=== PATIENT | female | born 1975 | race Two or more races ===

== ENCOUNTER 2018-03-28 10:18 | Inpatient (IN) | payer MEDICARE, OTHER ==
[~2018-03-28] VITALS: Ht 167.6 cm; Wt 99.8 kg
[~2018-03-28 10:18] MED LIST: FUROSEMIDE40 MG/5 ML ORAL
[2018-03-28] MEDS ORDERED: LISINOPRIL5 MG ORAL (10:19)
[2018-03-28] MEDS ORDERED: COREG3.125 MG ORAL (10:19)
[2018-03-28] MEDS ORDERED: Sodium Chloride 500ML 500 ML IV ONE (10:21)
[2018-03-28] MEDS ORDERED: Ketorolac 30mg Inj IV ONE (10:30)
[2018-03-28] MEDS ORDERED: Metoclopramide 10mg/2ml Inj IVP ONE (10:30)
--- NOTE | 2018-03-28 10:31 | Emergency Room Report ---
History of Present Illness General Chief Complaint: Abdominal Pain Source: Patient Present Illness HPI Patient presents with complaints of mid abdominal pain started few hours prior to arrival patient denies any chest pain Has persistent vomiting since then and has vomited several times denies any diarrhea denies any fevers or chills denies any recent travel Patient reports the last time she was in the hospital was in September She was diagnosed with CHF Allergies: Coded Allergies: MORPHINE (Verified Allergy, Unknown, 03/28/18) Patient History Past Medical History: see triage record Pertinent Family History: none Reviewed Nursing Documentation: PMH: Agreed; PSxH: Agreed Nursing Documentation-PMH Past Medical History: No History, Except For Review of Systems All Other Systems: negative except mentioned in HPI Physical Exam Vital Signs Date Time Temp Pulse Resp B/P (MAP) Pulse Ox O2 Delivery O2 Flow Rate FiO2 03/28/18 10:09 97.5 87 18 132/90 98 97.5 Sp02 EP Interpretation: reviewed, normal General Appearance: mild distress - Actively nauseated, vomiting Head: normocephalic, atraumatic Eyes: bilateral eye PERRL, bilateral eye EOMI ENT: hearing grossly normal, normal pharynx, TMs + canals normal, uvula midline Neck: full range of motion, supple, no meningismus, no bony tend Respiratory: lungs clear, normal breath sounds, no rhonchi, no respiratory distress, no retraction, no accessory muscle use Cardiovascular #1: normal peripheral pulses, regular rate, rhythm, no edema, no gallop, no JVD, no murmur Gastrointestinal: normal bowel sounds, non tender - On palpation however points mid abdominal for subjective discomfort, soft, no mass, no organomegaly, non-distended, no guarding, no pulsatile mass, no rebound Genitourinary: no CVA tenderness Musculoskeletal: back normal Neurologic: oriented x3, responsive, 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, motor strength/ tone normal, sensory intact Psychiatric: mood/affect normal Skin: normal color, no rash, warm/dry, palpation normal Lymphatic: normal inspection, no adenopathy Medical Decision Making Diagnostic Impression: Primary Impression: Abdominal hernia Additional Impression: Hernia with strangulation ER Course Patient's presentation is concerning given her pain level and exam CT imaging was also initiated Patient had consultation with general surgery Patient's body habitus makes it somewhat difficult to fully appreciate a mass however there is a small palpable region concerning for incarcerated/ strangulated hernia CT imaging also has concerns of this Patient provided with pain medication Gen. surgery at bedside Patient requiring admission for further care Labs Test 03/28/18 10:35 03/28/18 10:38 03/28/18 14:50 03/28/18 16:48 White Blood Count 11.7 K/UL (4.8-10.8) 13.1 K/UL (4.8-10.8) Red Blood Count 5.13 M/UL (4.20-5.40) 5.05 M/UL (4.20-5.40) Hemoglobin 14.3 G/DL (12.0-16.0) 14.0 G/DL (12.0-16.0) Hematocrit 43.6 % (37.0-47.0) 42.8 % (37.0-47.0) Mean Corpuscular Volume 85 FL (80-99) 85 FL (80-99) Mean Corpuscular Hemoglobin 27.9 PG (27.0-31.0) 27.7 PG (27.0-31.0) Mean Corpuscular Hemoglobin Concent 32.8 G/DL (32.0-36.0) 32.7 G/DL (32.0-36.0) Red Cell Distribution Width 12.9 % (11.6-14.8) 13.1 % (11.6-14.8) Platelet Count 278 K/UL (150-450) 234 K/UL (150-450) Mean Platelet Volume 8.8 FL (6.5-10.1) 9.0 FL (6.5-10.1) Neutrophils (%) (Auto) 58.7 % (45.0-75.0) % (45.0-75.0) Lymphocytes (%) (Auto) 29.8 % (20.0-45.0) % (20.0-45.0) Monocytes (%) (Auto) 7.4 % (1.0-10.0) % (1.0-10.0) Eosinophils (%) (Auto) 2.9 % (0.0-3.0) % (0.0-3.0) Basophils (%) (Auto) 1.1 % (0.0-2.0) % (0.0-2.0) Sodium Level 144 MMOL/L (136-145) 143 MMOL/L (136-145) Potassium Level 3.6 MMOL/L (3.5-5.1) 3.7 MMOL/L (3.5-5.1) Chloride Level 109 MMOL/L (98-107) 109 MMOL/L (98-107) Carbon Dioxide Level 23 MMOL/L (21-32) 21 MMOL/L (21-32) Anion Gap 12 mmol/L (5-15) 13 mmol/L (5-15) Blood Urea Nitrogen 16 mg/dL (7-18) 17 mg/dL (7-18) Creatinine 0.9 MG/DL (0.55-1.30) 0.9 MG/DL (0.55-1.30) Estimat Glomerular Filtration Rate > 60 mL/min (>60) > 60 mL/min (>60) Glucose Level 160 MG/DL (74-106) 131 MG/DL (74-106) Calcium Level 8.5 MG/DL (8.5-10.1) 8.4 MG/DL (8.5-10.1) Total Bilirubin 0.4 MG/DL (0.2-1.0) 0.4 MG/DL (0.2-1.0) Aspartate Amino Transf (AST/SGOT) 51 U/L (15-37) 51 U/L (15-37) Alanine Aminotransferase (ALT/SGPT) 102 U/L (12-78) 100 U/L (12-78) Alkaline Phosphatase 181 U/L (46-116) 161 U/L (46-116) Total Protein 7.7 G/DL (6.4-8.2) 7.4 G/DL (6.4-8.2) Albumin 3.3 G/DL (3.4-5.0) 3.2 G/DL (3.4-5.0) Globulin 4.4 g/dL 4.2 g/dL Albumin/Globulin Ratio 0.8 (1.0-2.7) 0.8 (1.0-2.7) Lipase 111 U/L (73-393) Urine Color Yellow Urine Appearance Clear Urine pH 5 (4.5-8.0) Urine Specific [place] 1.025 (1.005-1.035) Urine Protein 2+ (NEGATIVE) Urine Glucose (UA) Negative (NEGATIVE) Urine Ketones 1+ (NEGATIVE) Urine Blood 1+ (NEGATIVE) Urine Nitrite Negative (NEGATIVE) Urine Bilirubin Negative (NEGATIVE) Urine Urobilinogen Normal MG/DL (0.0-1.0) Urine Leukocyte Esterase 1+ (NEGATIVE) Urine RBC 0-2 /HPF (0 - 2) Urine WBC 0-2 /HPF (0 - 2) Urine Squamous Epithelial Cells Few /LPF (NONE/OCC) Urine Bacteria Few /HPF (NONE) Urine HCG, Qualitative Negative (NEGATIVE) Differential Total Cells Counted 100 Neutrophils % (Manual) 90 % (45-75) Lymphocytes % (Manual) 6 % (20-45) Monocytes % (Manual) 4 % (1-10) Eosinophils % (Manual) 0 % (0-3) Basophils % (Manual) 0 % (0-2) Band Neutrophils 0 % (0-8) Platelet Estimate Adequate Platelet Morphology Normal Red Blood Cell Morphology Normal Lactic Acid Level 2.60 mmol/L (0.4-2.0) Arterial Blood pH 7.498 (7.350-7.450) Arterial Blood Partial Pressure CO2 29.1 mmHg (35.0-45.0) Arterial Blood Partial Pressure O2 71.7 mmHg (75.0-100.0) Arterial Blood HCO3 22.1 mmol/L (22.0-26.0) Arterial Blood Oxygen Saturation 95.0 % (92.0-98.0) Arterial Blood Base Excess 0 Migel Test Positive Test 03/29/18 07:18 03/29/18 10:24 03/30/18 08:10 White Blood Count 12.0 K/UL (4.8-10.8) 13.5 K/UL (4.8-10.8) Red Blood Count 4.91 M/UL (4.20-5.40) 4.74 M/UL (4.20-5.40) Hemoglobin 13.7 G/DL (12.0-16.0) 13.5 G/DL (12.0-16.0) Hematocrit 41.7 % (37.0-47.0) 40.7 % (37.0-47.0) Mean Corpuscular Volume 85 FL (80-99) 86 FL (80-99) Mean Corpuscular Hemoglobin 28.0 PG (27.0-31.0) 28.5 PG (27.0-31.0) Mean Corpuscular Hemoglobin Concent 33.0 G/DL (32.0-36.0) 33.2 G/DL (32.0-36.0) Red Cell Distribution Width 13.4 % (11.6-14.8) 13.3 % (11.6-14.8) Platelet Count 233 K/UL (150-450) 224 K/UL (150-450) Mean Platelet Volume 8.4 FL (6.5-10.1) 8.4 FL (6.5-10.1) Neutrophils (%) (Auto) 74.6 % (45.0-75.0) 79.3 % (45.0-75.0) Lymphocytes (%) (Auto) 16.2 % (20.0-45.0) 10.9 % (20.0-45.0) Monocytes (%) (Auto) 8.2 % (1.0-10.0) 8.7 % (1.0-10.0) Eosinophils (%) (Auto) 0.2 % (0.0-3.0) 0.2 % (0.0-3.0) Basophils (%) (Auto) 0.8 % (0.0-2.0) 0.9 % (0.0-2.0) Prothrombin Time 10.7 SEC (9.30-11.50) Prothromb Time International Ratio 1.0 (0.9-1.1) Activated Partial Thromboplast Time 29 SEC (23-33) Sodium Level 143 MMOL/L (136-145) 140 MMOL/L (136-145) Potassium Level 3.6 MMOL/L (3.5-5.1) 3.6 MMOL/L (3.5-5.1) Chloride Level 107 MMOL/L (98-107) 105 MMOL/L (98-107) Carbon Dioxide Level 24 MMOL/L (21-32) 24 MMOL/L (21-32) Anion Gap 12 mmol/L (5-15) 11 mmol/L (5-15) Blood Urea Nitrogen 17 mg/dL (7-18) 18 mg/dL (7-18) Creatinine 0.9 MG/DL (0.55-1.30) 1.0 MG/DL (0.55-1.30) Estimat Glomerular Filtration Rate > 60 mL/min (>60) > 60 mL/min (>60) Glucose Level 135 MG/DL (74-106) 135 MG/DL (74-106) Lactic Acid Level 2.20 mmol/L (0.4-2.0) 1.30 mmol/L (0.66-2.22) 1.20 mmol/L (0.4-2.0) Calcium Level 8.5 MG/DL (8.5-10.1) 8.5 MG/DL (8.5-10.1) Total Bilirubin 0.7 MG/DL (0.2-1.0) 1.0 MG/DL (0.2-1.0) Aspartate Amino Transf (AST/SGOT) 32 U/L (15-37) 22 U/L (15-37) Alanine Aminotransferase (ALT/SGPT) 80 U/L (12-78) 61 U/L (12-78) Alkaline Phosphatase 126 U/L (46-116) 111 U/L (46-116) Total Protein 7.2 G/DL (6.4-8.2) 7.4 G/DL (6.4-8.2) Albumin 3.0 G/DL (3.4-5.0) 3.1 G/DL (3.4-5.0) Globulin 4.2 g/dL 4.3 g/dL Albumin/Globulin Ratio 0.7 (1.0-2.7) 0.7 (1.0-2.7) Rhythm Strip Diag. Results EP Interpretation: yes Rate: 88 Rhythm: NSR, no PVC's, no ectopy CT/MRI/US Diagnostic Results CT/MRI/US Diagnostic Results : Impression CT abdomen pelvis:IMPRESSION: 1. Ventral hernia containing thickened small bowel segments, mild edema/fluid and fat. Correlate for anysigns of incarceration and strangulation. 2. Ground glass opacities and some septal thickening at the lung bases. Could be fromedema, pneumonia or hem Last Vital Signs Date Time Temp Pulse Resp B/P (MAP) Pulse Ox O2 Delivery O2 Flow Rate FiO2 03/28/18 10:09 97.5 87 18 132/90 98 97.5 Status: improved Disposition: ADMITTED INPATIENT Condition: Serious Jamehdor,Ali DO Mar 28, 2018 10:31
[2018-03-28] MEDS ORDERED: LORazepam Inj 2mg/ml 1ml IV ONE (10:45)
[2018-03-28] MEDS ORDERED: DiphenhydrAMINE 50mg/ml Inj IVP ONE (10:45)
[2018-03-28] MEDS ORDERED: Morphine Sulfate 4mg/ml Inj (IV USE ONLY) IVP ONE (10:45)
[2018-03-28 11:09] LABS: BASOPHILS % (AUTO) 1.1 % (0.0-2.0); EOSINOPHILS % (AUTO) 2.9 % (0.0-3.0); HEMATOCRIT 43.6 % (37.0-47.0); HEMOGLOBIN 14.3 G/DL (12.0-16.0); LYMPHOCYTES % (AUTO) 29.8 % (20.0-45.0); MEAN CORPUSCULAR VOLUME 85 FL (80-99); MONOCYTES % (AUTO) 7.4 % (1.0-10.0); NEUTROPHILS % (AUTO) 58.7 % (45.0-75.0); PLATELET COUNT 278 K/UL (150-450); RED BLOOD COUNT 5.13 M/UL (4.20-5.40); RED CELL DISTRIBUTION WIDTH 12.9 % (11.6-14.8); WHITE BLOOD COUNT 11.7 K/UL (4.8-10.8)
[2018-03-28 11:10] LABS: ANION GAP 12 mmol/L (5-15); BLOOD UREA NITROGEN 16 mg/dL (7-18); CALCIUM 8.5 MG/DL (8.5-10.1); CARBON DIOXIDE 23 MMOL/L (21-32); CHLORIDE 109 MMOL/L (98-107); CREATININE 0.9 MG/DL (0.55-1.30); POTASSIUM 3.6 MMOL/L (3.5-5.1); SODIUM 144 MMOL/L (136-145)
[2018-03-28 11:13] LABS: ALANINE AMINOTRANSFERASE 102 U/L (12-78); ALBUMIN 3.3 G/DL (3.4-5.0); ALBUMIN/GLOBULIN RATIO 0.8 (1.0-2.7); ALKALINE PHOSPHATASE 181 U/L (46-116); ASPARTATE AMINO TRANSFERASE 51 U/L (15-37); BILIRUBIN,TOTAL 0.4 MG/DL (0.2-1.0)
[2018-03-28 11:17] VITALS: BP 155/104
[2018-03-28 11:30] LABS: APPEARANCE,URINE CLEAR; BILIRUBIN, URINE NEGATIVE (NEGATIVE); GLUCOSE, URINE (UA) NEGATIVE (NEGATIVE); KETONES,URINE 1+ (NEGATIVE); LEUKOCYTE ESTERASE ,URINE 1+ (NEGATIVE); NITRITE,URINE NEGATIVE (NEGATIVE); PH,URINE 5 (4.5-8.0); PROTEIN,URINE 2+ (NEGATIVE); UROBILINOGEN,URINE NORMAL MG/DL (0.0-1.0)
[2018-03-28 11:43] LABS: COLOR,URINE YELLOW
--- NOTE | 2018-03-28 12:07 | Diagnostic Imaging Report ---
EXAM: CT Abdomen and Pelvis Without Intravenous Contrast CLINICAL HISTORY: PAIN TECHNIQUE: Axial computed tomography images of the abdomen and pelvis without intravenous contrast. CTDI is 0.15 + 19.95 mGy and DLP is 1115 mGy-cm. One or more of the following dose reduction techniques were used: automated exposure control, adjustment of the mA and/or kV according to patient size, use of iterative reconstruction technique. COMPARISON: No relevant prior studies available. FINDINGS: Artifacts: Motion. Lung bases: Ground glass opacities and some septal thickening at the lung bases. Heart: Cardiomegaly. ABDOMEN: Liver: Fatty liver. Gallbladder and bile ducts: Cholelithiasis. Pancreas: Unremarkable. Spleen: Unremarkable. Adrenals: Unremarkable. Kidneys and ureters: Nonobstructing left renal stone. Stomach and bowel: Ventral hernia containing thickened small bowel segments, mild edema/fluid and fat. Colonic diverticula without diverticulitis. PELVIS: Appendix: Appendix not identified. Bladder: Unremarkable. Reproductive: Hysterectomy. ABDOMEN and PELVIS: Intraperitoneal space: Unremarkable. Bones/joints: No acute fracture. Soft tissues: Fat containing left lower abdominal - pelvic wall hernia. Vasculature: Unremarkable. No abdominal aortic aneurysm. Lymph nodes: No enlarged lymph nodes. IMPRESSION: 1. Ventral hernia containing thickened small bowel segments, mild edema/fluid and fat. Correlate for any signs of incarceration and strangulation. 2. Ground glass opacities and some septal thickening at the lung bases. Could be from edema, pneumonia or hemorrhage. There is a broad differential. 3. Cholelithiasis. [employer] 03/28/18 12:10 Verify Receipt Verified receipt with LEONOR Alatorre in ER for Jf Sprague MD on 03/28 12:10 (-07:00)
[2018-03-28 14:03] VITALS: BP 151/105
[2018-03-28] MEDS ORDERED: BACLOFEN5 GM MC (14:03)
--- NOTE | 2018-03-28 14:12 | General Progress Note ---
Progress Note Progress Note Surgery: full note to follow 43F multiple medical comorbidities was using the restroom this AM when she developed acute 10/10 abd pain. EMS called and transferred to ED for evaluation. Abd pain, leukocytosis 11k, ventral hernia. history of ventral hernia repair 2 years ago. since pain but today worsening. was able to partially reduce hernia. unfortunately given patients size and chronic state of hernia likely loss of domain and cannot reduce fully pain improved. vitals improved. after partial reduction high risk for surgery will monitor with serial exams. if not improve will need urgent operation. npo iv fluids iv abx pm labs ng tube to low intermittent suction thank you Fernando Quinonez Mar 28, 2018 14:12
[2018-03-28 15:10] LABS: HEMATOCRIT 42.8 % (37.0-47.0); MEAN CORPUSCULAR VOLUME 85 FL (80-99); PLATELET COUNT 234 K/UL (150-450); RED BLOOD COUNT 5.05 M/UL (4.20-5.40); RED CELL DISTRIBUTION WIDTH 13.1 % (11.6-14.8); WHITE BLOOD COUNT 13.1 K/UL (4.8-10.8)
[2018-03-28 15:19] LABS: ALANINE AMINOTRANSFERASE 100 U/L (12-78); ALBUMIN 3.2 G/DL (3.4-5.0); ALBUMIN/GLOBULIN RATIO 0.8 (1.0-2.7); ALKALINE PHOSPHATASE 161 U/L (46-116); ANION GAP 13 mmol/L (5-15); ASPARTATE AMINO TRANSFERASE 51 U/L (15-37); BILIRUBIN,TOTAL 0.4 MG/DL (0.2-1.0); BLOOD UREA NITROGEN 17 mg/dL (7-18); CALCIUM 8.4 MG/DL (8.5-10.1); CARBON DIOXIDE 21 MMOL/L (21-32); CHLORIDE 109 MMOL/L (98-107); CREATININE 0.9 MG/DL (0.55-1.30); POTASSIUM 3.7 MMOL/L (3.5-5.1); SODIUM 143 MMOL/L (136-145)
[2018-03-28] MEDS ORDERED: Hydromorphone 0.5mg/0.5ml inj IVP PRN (17:00)
[2018-03-28] MEDS: Hydromorphone 0.5mg/0.5ml inj IVP PRN ×2 (18:06→21:22)
[2018-03-28] MEDS: D5W w/KCl 20mEq 1,000 ML IV SCH (18:07)
--- NOTE | 2018-03-28 18:30 | History and Physical Report ---
DATE OF ADMISSION: 03/28/2018 CHIEF COMPLAINT/REASON FOR HOSPITALIZATION: The patient is admitted with incarcerated ventral hernia. HISTORY OF PRESENT ILLNESS: The patient is a 43-year-old lady, who presents with severe abdominal pain, crying in the emergency room, it is an incarcerated ventral hernia. This has been partially reduced by Dr. Quinonez in the emergency room. The patient's history is significant for multiple sclerosis and history of apparently congestive heart failure. She had prior ventral hernia surgery and had apparently complications after the above surgery. She could not give history at this time. She is crying and has altered mental status. History is taken from the family. SURGERIES: Ventral hernia. She has had a hysterectomy. MEDICATIONS: Lasix 40 mg b.i.d., carvedilol 3.125 mg b.i.d., lisinopril 2.5 mg daily, and baclofen 10 mg t.i.d. ALLERGIES: None known. Apparently, she had some kind of adverse reaction to morphine, but had morphine or other opioid in the emergency room without problem. HABITS: She is a nondrinker and nonsmoker. SOCIAL HISTORY: She lives with her . SYSTEM REVIEW: The patient is unable. PHYSICAL EXAMINATION: VITAL SIGNS: Temperature 98.4, pulse 84, respirations 24, blood pressure 151/105. GENERAL: The patient is lying in the emergency room, eyes closed, uncomfortable, crying. HEENT: Sclerae are nonicteric. Ocular motions intact in all directions. Oral mucosa is moist. NECK: No adenopathy or thyroid enlargement. LUNGS: Clear. HEART: Rhythm is regular. I hear no murmur. ABDOMEN: Obese and soft. However, there is a large midline ventral hernia that is protruding at the bedside while Dr. Quinonez is trying to reduce it. RECTAL AND PELVIC: Deferred. EXTREMITIES: No edema, cyanosis, or clubbing. NEUROLOGIC: The patient is crying and uncooperative to detailed testing. She moves all extremities and appears to have normal strength. PERTINENT LABORATORY DATA: Showed normal electrolytes, glucose 160, and elevated liver enzymes. White count 11.7 and hemoglobin 14.3. Urinalysis negative. IMPRESSION: 1. Ventral hernia, incarcerated. 2. Multiple sclerosis. 3. History of congestive heart failure, compensated. 4. Altered mental status, possibly pain related, possibly from the medications she receives and possibly from multiple sclerosis. 5. Fatty liver on CT scan and cholelithiasis. 6. Ground-glass opacities and some septal thickening at the lung bases on CT. PLAN: The patient will be watched closely and may need surgery on this admission that surgery could be complicated due to morbid obesity and underlying comorbidities. Case is discussed in detail with the family and Dr. Quinonez. Detailed orders given. Loyd Moore M.D. DR: KORINA JOB#: [id number] CC:
[2018-03-28 20:00] VITALS: BP 142/97
[2018-03-28] MEDS: Heparin 5000 units/ml inj SUBQ SCH (21:21)
--- NOTE | 2018-03-28 23:18 | Diagnostic Imaging Report ---
EXAM: XR Abdomen, one view CLINICAL HISTORY: ABD DIST TECHNIQUE: Frontal view of the abdomen/pelvis COMPARISON: CT performed earlier on the same day. FINDINGS: The majority of the right side of the abdomen was not included in the imaging field and cannot be evaluated. Gastrointestinal tract: The visualized portions of the abdomen demonstrate no definite plain film evidence for significant bowel loop dilation. Bones/joints: Degenerative changes are suspected of the lumbar spine. Tubes, lines and devices: A nasogastric tube is projected in the left upper quadrant with tip projected in the region of the body of the stomach. IMPRESSION: The visualized portions of the abdomen are grossly unremarkable. A large portion of the right side of the abdomen was not included in the imaging field and cannot be evaluated.
[2018-03-28] MEDS ORDERED: Acetaminophen 650 MG SUPP RECTAL PRN (23:45)
[2018-03-29] VITALS: BP 152/97
[2018-03-29] MEDS: Hydromorphone 0.5mg/0.5ml inj IVP PRN ×6 (00:56→17:58)
[2018-03-29 04:00] VITALS: BP 139/89
[2018-03-29 07:57] LABS: BASOPHILS % (AUTO) 0.8 % (0.0-2.0); EOSINOPHILS % (AUTO) 0.2 % (0.0-3.0); HEMATOCRIT 41.7 % (37.0-47.0); HEMOGLOBIN 13.7 G/DL (12.0-16.0); LYMPHOCYTES % (AUTO) 16.2 % (20.0-45.0); MEAN CORPUSCULAR VOLUME 85 FL (80-99); MONOCYTES % (AUTO) 8.2 % (1.0-10.0); NEUTROPHILS % (AUTO) 74.6 % (45.0-75.0); PLATELET COUNT 233 K/UL (150-450); RED BLOOD COUNT 4.91 M/UL (4.20-5.40); RED CELL DISTRIBUTION WIDTH 13.4 % (11.6-14.8)
[2018-03-29 08:00] VITALS: BP 133/79
[2018-03-29 08:19] LABS: ALANINE AMINOTRANSFERASE 80 U/L (12-78); ALBUMIN/GLOBULIN RATIO 0.7 (1.0-2.7); ALKALINE PHOSPHATASE 126 U/L (46-116); ANION GAP 12 mmol/L (5-15); ASPARTATE AMINO TRANSFERASE 32 U/L (15-37); BILIRUBIN,TOTAL 0.7 MG/DL (0.2-1.0); BLOOD UREA NITROGEN 17 mg/dL (7-18); CALCIUM 8.5 MG/DL (8.5-10.1); CARBON DIOXIDE 24 MMOL/L (21-32); CHLORIDE 107 MMOL/L (98-107); CREATININE 0.9 MG/DL (0.55-1.30); POTASSIUM 3.6 MMOL/L (3.5-5.1); SODIUM 143 MMOL/L (136-145)
[2018-03-29] MEDS: Pantoprazole Inj IVP SCH (08:33)
[2018-03-29] MEDS: Heparin 5000 units/ml inj SUBQ SCH ×2 (08:42→21:00)
--- NOTE | 2018-03-29 10:14 | Diagnostic Imaging Report ---
EXAM: XR Abdomen, 2 Views CLINICAL HISTORY: ABD PAIN TECHNIQUE: Frontal view of the abdomen/pelvis with upright view of the abdomen. COMPARISON: CT abdomen and pelvis dated 03/28/18 FINDINGS: Intraperitoneal space: No free air. Gastrointestinal tract: Mild gaseous distention of small bowel loops in the central abdomen, which otherwise main within normal diameter. No abnormal distention of large bowel loops. No luminal air fluid levels. No evidence of pneumatosis intestinalis, pneumoperitoneum, or portal venous gas. Renal shadows obscured by overlying bowel gas. No suspicious calcifications in the abdomen or pelvis. Bones/joints: Unremarkable. Vasculature: Radiodense phleboliths in the pelvis bilaterally. Tubes, lines and devices: NG tube coiled in the stomach with the tip in the region of the gastric body. IMPRESSION: Mild gaseous distention of small bowel loops in the midabdomen, nonspecific.
--- NOTE | 2018-03-29 10:16 | Diagnostic Imaging Report ---
EXAM: XR Chest, 1 View CLINICAL HISTORY: ABD PAIN TECHNIQUE: Frontal view of the chest. COMPARISON: No relevant prior studies available. FINDINGS: Lungs: Unremarkable. The lungs appear clear. No confluent pulmonary opacities. Pleural space: Unremarkable. No pneumothorax. Heart: Cardiomegaly. Mediastinum: Unremarkable. Bones/joints: Unremarkable. Tubes, lines and devices: NG tube tip: The stomach. IMPRESSION: 1. No acute findings in the thorax. 2. Cardiomegaly.
[2018-03-29] MEDS: D5W w/KCl 20mEq 1,000 ML IV SCH (10:32)
[2018-03-29 12:00] VITALS: BP 137/93
--- NOTE | 2018-03-29 13:28 | Cardiology Report ---
APPROVED REPORT EXAM: Two-dimensional and M-mode echocardiogram with Doppler and color Doppler. INDICATION H[facility] M-Mode DIMENSIONS IVSd1.6 (0.7-1.1cm)Left Atrium (MM)4.2 (1.6-4.0cm) LVDd6.0 (3.5-5.6cm)Aortic Root3.3 (2.0-3.7cm) PWd1.5 (0.7-1.1cm)Aortic Cusp Exc.1.8 (1.5-2.0cm) IVSs1.8 cm LVDs4.9 (2.5-4.0cm) PWs1.6 cm Technically difficult study due to poor acoustical windows. Mild left ventricular enlargements . Severe Global left ventricular hypokinesis . Left ventricular ejection fraction estimated to be 20%. No evidence of left ventricular hypertrophy. Trace posterior pericardial effusion. Mild left atrial enlargements . Right cardiac chamber sizes are within normal limits. Focal aortic valve sclerosis with normal cusp excursion. Thickened mitral valve leaflets with normal excursion. Mitral annulus and aortic root calcification. Pulmonic valve not well visualized. Normal tricuspid valve structure. IVC dilated at 2.7 cm without physiologic collapse suggestive of increased RA pressure. A color flow and spectral Doppler study was performed and revealed: No aortic regurgitation. Moderate mitral regurgitation. Left ventricular diastolic function can not determined due to arrhythmia . Moderate tricuspid regurgitation. Tricuspid systolic velocities suggests peak right ventricular systolic pressure of 19mmHg
--- NOTE | 2018-03-29 13:49 | Cardiology Report ---
APPROVED REPORT EKG Measurement Heart [id number] Sinus tachycardia Nonspecific T wave abnormality Abnormal ECG
--- NOTE | 2018-03-29 14:20 | General Progress Note ---
Assessment/Plan Problem List: (1) CHF (congestive heart failure) ICD Codes: I50.9 - Heart failure, unspecified SNOMED: 38314979 (2) Multiple sclerosis ICD Codes: G35 - Multiple sclerosis SNOMED: 38308405 (3) Abdominal hernia ICD Codes: K46.9 - Unspecified abdominal hernia without obstruction or gangrene SNOMED: 58192628 Assessment/Plan surg following, Subjective Constitutional: Reports: weakness HEENT: Reports: no symptoms Cardiovascular: Reports: no symptoms Gastrointestinal/Abdominal: Reports: abdominal pain Genitourinary: Reports: no symptoms Neurologic/Psychiatric: Reports: pre-existing deficit Endocrine: Reports: no symptoms Hematologic/Lymphatic: Reports: no symptoms Allergies: Coded Allergies: MORPHINE (Verified Allergy, Unknown, 03/28/18) Objective Last 24 Hour Vital Signs Date Time Temp Pulse Resp B/P (MAP) Pulse Ox O2 Delivery O2 Flow Rate FiO2 03/29/18 09:00 Room Air 03/29/18 08:00 98.1 117 20 133/79 (97) 95 98.1 03/29/18 04:00 98.5 116 20 139/89 (106) 94 98.5 03/29/18 00:00 98.9 118 20 152/97 (115) 94 98.9 03/28/18 21:00 Room Air 03/28/18 20:00 99.8 112 20 142/97 (112) 99.8 03/28/18 18:35 97.8 03/28/18 18:06 97.8 03/28/18 16:00 97.8 98 22 96 97.8 03/28/18 15:24 Room Air 03/28/18 14:25 98.4 84 24 151/105 100 Room Air 98.4 Intake and Output 03/28/18 03/29/18 19:00 07:00 Intake Total 540 ml Output Total 400 ml Balance 140 ml Intake IV Total 540 ml Output Gastric Drainage Total 400 ml # Voids 1 3 Laboratory Tests 03/28/18 14:50: White Blood Count 13.1H, Red Blood Count 5.05, Hemoglobin 14.0, Hematocrit 42.8 , Mean Corpuscular Volume 85, Mean Corpuscular Hemoglobin 27.7, Mean Corpuscular Hemoglobin Concent 32.7, Red Cell Distribution Width 13.1, Platelet Count 234, Mean Platelet Volume 9.0, Neutrophils (%) (Auto) , Lymphocytes (%) ( Auto) , Monocytes (%) (Auto) , Eosinophils (%) (Auto) , Basophils (%) (Auto) , Differential Total Cells Counted 100, Neutrophils % (Manual) 90H, Lymphocytes % (Manual) 6L, Monocytes % (Manual) 4, Eosinophils % (Manual) 0, Basophils % ( Manual) 0, Band Neutrophils 0, Platelet Estimate Adequate, Platelet Morphology Normal, Red Blood Cell Morphology Normal, Sodium Level 143, Potassium Level 3.7 , Chloride Level 109H, Carbon Dioxide Level 21, Anion Gap 13, Blood Urea Nitrogen 17, Creatinine 0.9, Estimat Glomerular Filtration Rate > 60, Glucose Level 131H, Lactic Acid Level 2.60H, Calcium Level 8.4L, Total Bilirubin 0.4, Aspartate Amino Transf (AST/SGOT) 51H, Alanine Aminotransferase (ALT/SGPT) 100H , Alkaline Phosphatase 161H, Total Protein 7.4, Albumin 3.2L, Globulin 4.2, Albumin/Globulin Ratio 0.8L 03/28/18 16:48: Arterial Blood pH 7.498H, Arterial Blood Partial Pressure CO2 29.1L, Arterial Blood Partial Pressure O2 71.7L, Arterial Blood HCO3 22.1, Arterial Blood Oxygen Saturation 95.0, Arterial Blood Base Excess 0, Migel Test Positive 03/29/18 07:18: White Blood Count 12.0H, Red Blood Count 4.91, Hemoglobin 13.7, Hematocrit 41.7 , Mean Corpuscular Volume 85, Mean Corpuscular Hemoglobin 28.0, Mean Corpuscular Hemoglobin Concent 33.0, Red Cell Distribution Width 13.4, Platelet Count 233, Mean Platelet Volume 8.4, Neutrophils (%) (Auto) 74.6, Lymphocytes (% ) (Auto) 16.2L, Monocytes (%) (Auto) 8.2, Eosinophils (%) (Auto) 0.2, Basophils (%) (Auto) 0.8, Sodium Level 143, Potassium Level 3.6, Chloride Level 107, Carbon Dioxide Level 24, Anion Gap 12, Blood Urea Nitrogen 17, Creatinine 0.9, Estimat Glomerular Filtration Rate > 60, Glucose Level 135H, Lactic Acid Level 2.20H, Calcium Level 8.5, Total Bilirubin 0.7, Aspartate Amino Transf (AST/SGOT ) 32, Alanine Aminotransferase (ALT/SGPT) 80H, Alkaline Phosphatase 126H, Total Protein 7.2, Albumin 3.0L, Globulin 4.2, Albumin/Globulin Ratio 0.7L, Prothrombin Time 10.7, Prothromb Time International Ratio 1.0, Activated Partial Thromboplast Time 29 03/29/18 10:24: Lactic Acid Level 1.30 Height (Feet): 5 Height (Inches): 6.00 Weight (Pounds): 220 General Appearance: no apparent distress, obese EENT: normal ENT inspection Neck: normal alignment Cardiovascular: normal peripheral pulses, regular rhythm Respiratory/Chest: lungs clear Abdomen: non tender, tender, other - min tender vent hernia Extremities: non-tender Neurologic: motor weakness, other - L side 5-/5 ROZINA MOLINA Mar 29, 2018 14:20
--- NOTE | 2018-03-29 15:18 | General Surgery Progress Note ---
General Surgery-Progress Note Subjective Symptoms: improved Additional Comments pain much improved. no n/v/f/c. comfortable and more alert today. states she feels better. no flatus or BM yet. NG tube output okay Objective Last 24 Hour Vital Signs Date Time Temp Pulse Resp B/P (MAP) Pulse Ox O2 Delivery O2 Flow Rate FiO2 03/29/18 12:00 97.2 108 18 137/93 (108) 99 97.2 03/29/18 09:00 Room Air 03/29/18 08:00 98.1 117 20 133/79 (97) 95 98.1 03/29/18 04:00 98.5 116 20 139/89 (106) 94 98.5 03/29/18 00:00 98.9 118 20 152/97 (115) 94 98.9 03/28/18 21:00 Room Air 03/28/18 20:00 99.8 112 20 142/97 (112) 99.8 03/28/18 18:35 97.8 03/28/18 18:06 97.8 03/28/18 16:00 97.8 98 22 96 97.8 03/28/18 15:24 Room Air I&O Intake and Output 03/28/18 03/29/18 19:00 07:00 Intake Total 540 ml Output Total 400 ml Balance 140 ml Intake IV Total 540 ml Output Gastric Drainage Total 400 ml # Voids 1 3 Drains: none Cardiovascular: RSR Respiratory: clear Abdomen: soft, absent bowel sounds, other - hernia still partially reducible fortunately. loss of domain. tenderness improved. Extremities: no cyanosis Laboratory Tests Test 03/28/18 16:48 03/29/18 07:18 03/29/18 10:24 Arterial Blood pH 7.498 (7.350-7.450) Arterial Blood Partial Pressure CO2 29.1 mmHg (35.0-45.0) L Arterial Blood Partial Pressure O2 71.7 mmHg (75.0-100.0) L Arterial Blood HCO3 22.1 mmol/L (22.0-26.0) Arterial Blood Oxygen Saturation 95.0 % (92.0-98.0) Arterial Blood Base Excess 0 Migel Test Positive White Blood Count 12.0 K/UL (4.8-10.8) H Red Blood Count 4.91 M/UL (4.20-5.40) Hemoglobin 13.7 G/DL (12.0-16.0) Hematocrit 41.7 % (37.0-47.0) Mean Corpuscular Volume 85 FL (80-99) Mean Corpuscular Hemoglobin 28.0 PG (27.0-31.0) Mean Corpuscular Hemoglobin Concent 33.0 G/DL (32.0-36.0) Red Cell Distribution Width 13.4 % (11.6-14.8) Platelet Count 233 K/UL (150-450) Mean Platelet Volume 8.4 FL (6.5-10.1) Neutrophils (%) (Auto) 74.6 % (45.0-75.0) Lymphocytes (%) (Auto) 16.2 % (20.0-45.0) L Monocytes (%) (Auto) 8.2 % (1.0-10.0) Eosinophils (%) (Auto) 0.2 % (0.0-3.0) Basophils (%) (Auto) 0.8 % (0.0-2.0) Prothrombin Time 10.7 SEC (9.30-11.50) Prothromb Time International Ratio 1.0 (0.9-1.1) Activated Partial Thromboplast Time 29 SEC (23-33) Sodium Level 143 MMOL/L (136-145) Potassium Level 3.6 MMOL/L (3.5-5.1) Chloride Level 107 MMOL/L (98-107) Carbon Dioxide Level 24 MMOL/L (21-32) Anion Gap 12 mmol/L (5-15) Blood Urea Nitrogen 17 mg/dL (7-18) Creatinine 0.9 MG/DL (0.55-1.30) Estimat Glomerular Filtration Rate > 60 mL/min (>60) Glucose Level 135 MG/DL (74-106) H Lactic Acid Level 2.20 mmol/L (0.4-2.0) H 1.30 mmol/L (0.66-2.22) Calcium Level 8.5 MG/DL (8.5-10.1) Total Bilirubin 0.7 MG/DL (0.2-1.0) Aspartate Amino Transf (AST/SGOT) 32 U/L (15-37) Alanine Aminotransferase (ALT/SGPT) 80 U/L (12-78) H Alkaline Phosphatase 126 U/L (46-116) H Total Protein 7.2 G/DL (6.4-8.2) Albumin 3.0 G/DL (3.4-5.0) L Globulin 4.2 g/dL Albumin/Globulin Ratio 0.7 (1.0-2.7) L Plan Problems: (1) Abdominal hernia Assessment & Plan: improving. pain improved. lactate normalized. wbc improved will monitor with serial exams. npo iv fluids iv abx awaiting return of bowel function pm labs ng tube to low intermittent suction thank you Fernando Quinonez Mar 29, 2018 15:18
--- NOTE | 2018-03-29 15:19 | Consultation ---
History of Present Illness General Date patient seen: Mar 28, 2018 Chief Complaint: Abdominal Pain Reason for Consultation: ventral hernia Present Illness HPI 43F multiple medical comorbidities was using the restroom this AM when she developed acute 10/10 abd pain. EMS called and transferred to ED for evaluation. Abd pain, leukocytosis 11k, ventral hernia. history of ventral hernia repair 2 years ago. since pain but today worsening. Allergies: Coded Allergies: MORPHINE (Verified Allergy, Unknown, 03/28/18) Medication History Scheduled Baclofen (Baclofen), 5 GM MC THREE TIMES A DAY, (Reported) Carvedilol (Coreg), 3.125 MG ORAL EVERY 12 HOURS, (Reported) Furosemide (Furosemide), 40 MG ORAL DAILY, (Reported) Lisinopril (Lisinopril*), 2.5 MG ORAL DAILY, (Reported) Patient History History Provided By: Patient, Medical Record, PMD Healthcare decision maker Sugey Meng, [place] [place]uscitation status Full Code Advanced Directive on File Past Medical/Surgical History Past Medical/Surgical History: (1) Abdominal hernia (2) CHF (congestive heart failure) (3) Multiple sclerosis Review of Systems All Other Systems: negative except mentioned in HPI Physical Exam General Appearance: no apparent distress Lines, tubes and drains: peripheral HEENT: normocephalic, atraumatic Neck: normal inspection Respiratory/Chest: normal breath sounds Cardiovascular/Chest: normal rate, tachycardia Abdomen: soft, absent bowel sounds, tender, hernia Extremities: normal inspection Skin Exam: normal pigmentation Neurologic: alert Last 24 Hour Vital Signs Date Time Temp Pulse Resp B/P (MAP) Pulse Ox O2 Delivery O2 Flow Rate FiO2 03/29/18 12:00 97.2 108 18 137/93 (108) 99 97.2 03/29/18 09:00 Room Air 03/29/18 08:00 98.1 117 20 133/79 (97) 95 98.1 03/29/18 04:00 98.5 116 20 139/89 (106) 94 98.5 03/29/18 00:00 98.9 118 20 152/97 (115) 94 98.9 03/28/18 21:00 Room Air 03/28/18 20:00 99.8 112 20 142/97 (112) 99.8 03/28/18 18:35 97.8 03/28/18 18:06 97.8 03/28/18 16:00 97.8 98 22 96 97.8 03/28/18 15:24 Room Air Intake and Output 03/28/18 03/29/18 19:00 07:00 Intake Total 540 ml Output Total 400 ml Balance 140 ml Intake IV Total 540 ml Output Gastric Drainage Total 400 ml # Voids 1 3 Laboratory Tests Test 03/28/18 16:48 03/29/18 07:18 03/29/18 10:24 Arterial Blood pH 7.498 (7.350-7.450) Arterial Blood Partial Pressure CO2 29.1 mmHg (35.0-45.0) L Arterial Blood Partial Pressure O2 71.7 mmHg (75.0-100.0) L Arterial Blood HCO3 22.1 mmol/L (22.0-26.0) Arterial Blood Oxygen Saturation 95.0 % (92.0-98.0) Arterial Blood Base Excess 0 Migel Test Positive White Blood Count 12.0 K/UL (4.8-10.8) H Red Blood Count 4.91 M/UL (4.20-5.40) Hemoglobin 13.7 G/DL (12.0-16.0) Hematocrit 41.7 % (37.0-47.0) Mean Corpuscular Volume 85 FL (80-99) Mean Corpuscular Hemoglobin 28.0 PG (27.0-31.0) Mean Corpuscular Hemoglobin Concent 33.0 G/DL (32.0-36.0) Red Cell Distribution Width 13.4 % (11.6-14.8) Platelet Count 233 K/UL (150-450) Mean Platelet Volume 8.4 FL (6.5-10.1) Neutrophils (%) (Auto) 74.6 % (45.0-75.0) Lymphocytes (%) (Auto) 16.2 % (20.0-45.0) L Monocytes (%) (Auto) 8.2 % (1.0-10.0) Eosinophils (%) (Auto) 0.2 % (0.0-3.0) Basophils (%) (Auto) 0.8 % (0.0-2.0) Prothrombin Time 10.7 SEC (9.30-11.50) Prothromb Time International Ratio 1.0 (0.9-1.1) Activated Partial Thromboplast Time 29 SEC (23-33) Sodium Level 143 MMOL/L (136-145) Potassium Level 3.6 MMOL/L (3.5-5.1) Chloride Level 107 MMOL/L (98-107) Carbon Dioxide Level 24 MMOL/L (21-32) Anion Gap 12 mmol/L (5-15) Blood Urea Nitrogen 17 mg/dL (7-18) Creatinine 0.9 MG/DL (0.55-1.30) Estimat Glomerular Filtration Rate > 60 mL/min (>60) Glucose Level 135 MG/DL (74-106) H Lactic Acid Level 2.20 mmol/L (0.4-2.0) H 1.30 mmol/L (0.66-2.22) Calcium Level 8.5 MG/DL (8.5-10.1) Total Bilirubin 0.7 MG/DL (0.2-1.0) Aspartate Amino Transf (AST/SGOT) 32 U/L (15-37) Alanine Aminotransferase (ALT/SGPT) 80 U/L (12-78) H Alkaline Phosphatase 126 U/L (46-116) H Total Protein 7.2 G/DL (6.4-8.2) Albumin 3.0 G/DL (3.4-5.0) L Globulin 4.2 g/dL Albumin/Globulin Ratio 0.7 (1.0-2.7) L Height (Feet): 5 Height (Inches): 6.00 Weight (Pounds): 220 Medications Current Medications Medications (Trade) Dose Ordered Sig/Johnny Route PRN Reason Start Time Stop Time Status Last Admin Dose Admin Acetaminophen (Tylenol) 650 mg Q4H PRN RECTAL Mild Pain/Temp > 100.5 03/28/18 23:45 04/27/18 23:44 Dextrose/ Electrolytes 1,000 ml @ 60 mls/hr [id number] IV 03/28/18 17:45 04/27/18 17:44 03/29/18 10:32 Heparin Sodium (Porcine) (Heparin 5000 units/ml) 5,000 units EVERY 12 HOURS SUBQ 03/28/18 21:00 04/27/18 20:59 03/29/18 08:42 Hydromorphone HCl (Dilaudid) 0.25 mg Q3H PRN IVP For Moderate Pain 03/28/18 17:00 04/04/18 16:59 Hydromorphone HCl (Dilaudid) 0.5 mg Q3H PRN IVP For Severe Pain 03/28/18 17:00 04/04/18 16:59 03/29/18 13:55 Ondansetron HCl (Zofran) 4 mg Q6H PRN IVP Nausea & Vomiting 03/28/18 23:45 04/27/18 23:44 03/29/18 10:44 Pantoprazole (Protonix) 40 mg DAILY IVP 03/29/18 09:00 04/28/18 08:59 03/29/18 08:33 Assessment/Plan Problem List: (1) Abdominal hernia Assessment & Plan: was able to partially reduce hernia. unfortunately given patients size and chronic state of hernia likely loss of domain and cannot reduce fully pain improved. vitals improved. after partial reduction high risk for surgery will monitor with serial exams. if not improve will need urgent operation. npo iv fluids iv abx pm labs ng tube to low intermittent suction thank you ICD Codes: K46.9 - Unspecified abdominal hernia without obstruction or gangrene SNOMED: [id number] Fernando Quinonez Mar 29, 2018 15:19
[2018-03-29 16:00] VITALS: BP 134/86
[2018-03-29] MEDS ORDERED: Hydromorphone 0.5mg/0.5ml inj SUBQ SCH (18:36)
[2018-03-29 20:00] VITALS: BP 123/78
[2018-03-29] MEDS ORDERED: Tubing IV Secondary IV ONE (21:07)
[2018-03-30] VITALS: BP 109/76
[2018-03-30] MEDS: D5W w/KCl 20mEq 1,000 ML IV SCH ×2 (01:25→20:45)
[2018-03-30] MEDS: Hydromorphone 0.5mg/0.5ml inj IVP PRN ×2 (01:25→11:43)
[2018-03-30 04:00] VITALS: BP 110/73
[2018-03-30 08:00] VITALS: BP 124/86
[2018-03-30] MEDS: Pantoprazole Inj IVP SCH (08:48)
[2018-03-30] MEDS: Heparin 5000 units/ml inj SUBQ SCH ×2 (08:53→20:44)
[2018-03-30 08:55] LABS: BASOPHILS % (AUTO) 0.9 % (0.0-2.0); EOSINOPHILS % (AUTO) 0.2 % (0.0-3.0); HEMATOCRIT 40.7 % (37.0-47.0); HEMOGLOBIN 13.5 G/DL (12.0-16.0); LYMPHOCYTES % (AUTO) 10.9 % (20.0-45.0); MEAN CORPUSCULAR VOLUME 86 FL (80-99); MONOCYTES % (AUTO) 8.7 % (1.0-10.0); NEUTROPHILS % (AUTO) 79.3 % (45.0-75.0); PLATELET COUNT 224 K/UL (150-450); RED BLOOD COUNT 4.74 M/UL (4.20-5.40); RED CELL DISTRIBUTION WIDTH 13.3 % (11.6-14.8); WHITE BLOOD COUNT 13.5 K/UL (4.8-10.8)
[2018-03-30 09:31] LABS: ALANINE AMINOTRANSFERASE 61 U/L (12-78); ALBUMIN 3.1 G/DL (3.4-5.0); ALBUMIN/GLOBULIN RATIO 0.7 (1.0-2.7); ALKALINE PHOSPHATASE 111 U/L (46-116); ANION GAP 11 mmol/L (5-15); ASPARTATE AMINO TRANSFERASE 22 U/L (15-37); BLOOD UREA NITROGEN 18 mg/dL (7-18); CALCIUM 8.5 MG/DL (8.5-10.1); CARBON DIOXIDE 24 MMOL/L (21-32); CHLORIDE 105 MMOL/L (98-107); POTASSIUM 3.6 MMOL/L (3.5-5.1); SODIUM 140 MMOL/L (136-145)
[2018-03-30 12:30] VITALS: BP 155/134
--- NOTE | 2018-03-30 12:44 | Physician Query ---
--------- THIS DOCUMENT IS A PERMANENT PART OF THE MEDICAL RECORD --------- PLEASE COMPLETE DOCUMENT BEFORE SIGNING Dear Dr. Moore Date: 03/30/2018 [employer] Name: Laureen Betancur [employer] Phone No.: [phone] Exercise your independent professional judgment when responding to the query. Questions asked do not imply a particular answer is desired or expected. We greatly appreciate your clarification on this issue. Clinical Documentation States: "Altered Mental Status" documented in Impression of H&P and progress notes. Clinical Findings Show: Glucose: 160; Lactic acid: 2.60,2.20. Please indicate the nature and chronicity of the condition below: [] Metabolic Encephalopathy [] Toxic Encephalopathy [] Toxic - Metabolic Encephalopathy [] Progressive Encephalopathy [] Encephalopathy, Other [] Other: [] Not Applicable Severity [] Acute [] Chronic [] Acute on Chronic [] Unable to determine Condition Present on Admission: [] Yes [] No []Clinically Undeterminable Please also document in your Progress Notes and/or Discharge Summary and indicate if the condition was present on admission. MTDD
[2018-03-30] MEDS ORDERED: Hydromorphone 0.5mg/0.5ml inj IVP PRN (14:00)
[2018-03-30] MEDS ORDERED: HYDROmorphone 1mg/ml Carpuject IVP PRN ×2 (14:00)
--- NOTE | 2018-03-30 14:10 | General Surgery Progress Note ---
General Surgery-Progress Note Subjective Additional Comments cramping abd pain. non consistent with exam or history. no n/v/f/c. passing flatus. no BM in days. Objective Last 24 Hour Vital Signs Date Time Temp Pulse Resp B/P (MAP) Pulse Ox O2 Delivery O2 Flow Rate FiO2 03/30/18 12:30 98.8 124 22 155/134 (141) 98 98.8 03/30/18 12:13 98.0 03/30/18 11:43 98.0 03/30/18 08:17 Room Air 03/30/18 08:00 98.0 128 18 124/86 (99) 97 98.0 03/30/18 04:00 98.2 116 20 110/73 (85) 95 98.2 03/30/18 00:00 98.4 121 18 109/76 (87) 95 98.4 03/29/18 21:00 Room Air 03/29/18 20:00 97.9 117 20 123/78 (93) 96 97.9 03/29/18 16:00 98.2 130 20 134/86 (102) 96 98.2 I&O Intake and Output 03/29/18 03/30/18 19:00 07:00 Intake Total 60 ml 720 ml Output Total 1300 ml 400 ml Balance -1240 ml 320 ml Intake IV Total 60 ml 720 ml Output Gastric Drainage Total 1300 ml 400 ml # Voids 5 3 Drains: none Cardiovascular: RSR Respiratory: clear Abdomen: soft, tenderness, present bowel sounds Extremities: no cyanosis Laboratory Tests Test 03/30/18 08:10 White Blood Count 13.5 K/UL (4.8-10.8) H Red Blood Count 4.74 M/UL (4.20-5.40) Hemoglobin 13.5 G/DL (12.0-16.0) Hematocrit 40.7 % (37.0-47.0) Mean Corpuscular Volume 86 FL (80-99) Mean Corpuscular Hemoglobin 28.5 PG (27.0-31.0) Mean Corpuscular Hemoglobin Concent 33.2 G/DL (32.0-36.0) Red Cell Distribution Width 13.3 % (11.6-14.8) Platelet Count 224 K/UL (150-450) Mean Platelet Volume 8.4 FL (6.5-10.1) Neutrophils (%) (Auto) 79.3 % (45.0-75.0) H Lymphocytes (%) (Auto) 10.9 % (20.0-45.0) L Monocytes (%) (Auto) 8.7 % (1.0-10.0) Eosinophils (%) (Auto) 0.2 % (0.0-3.0) Basophils (%) (Auto) 0.9 % (0.0-2.0) Sodium Level 140 MMOL/L (136-145) Potassium Level 3.6 MMOL/L (3.5-5.1) Chloride Level 105 MMOL/L (98-107) Carbon Dioxide Level 24 MMOL/L (21-32) Anion Gap 11 mmol/L (5-15) Blood Urea Nitrogen 18 mg/dL (7-18) Creatinine 1.0 MG/DL (0.55-1.30) Estimat Glomerular Filtration Rate > 60 mL/min (>60) Glucose Level 135 MG/DL (74-106) H Lactic Acid Level 1.20 mmol/L (0.4-2.0) Calcium Level 8.5 MG/DL (8.5-10.1) Total Bilirubin 1.0 MG/DL (0.2-1.0) Aspartate Amino Transf (AST/SGOT) 22 U/L (15-37) Alanine Aminotransferase (ALT/SGPT) 61 U/L (12-78) Alkaline Phosphatase 111 U/L (46-116) Total Protein 7.4 G/DL (6.4-8.2) Albumin 3.1 G/DL (3.4-5.0) L Globulin 4.3 g/dL Albumin/Globulin Ratio 0.7 (1.0-2.7) L Plan Problems: (1) Abdominal hernia Assessment & Plan: was able to partially reduce hernia. unfortunately given patients size and chronic state of hernia likely loss of domain and cannot reduce fully pain improved. vitals improved. after partial reduction high risk for surgery GI contrast study without obstruction ng tube removed at bedside. exam stable. passing flatus now. she seems to be very constipated as she has not had BM in days. cramping seems to be from possible constipation. clear liquids bowel regiman AM labs thank you Fernando Quinonez Mar 30, 2018 14:10
[2018-03-30] MEDS ORDERED: Docusate 100mg cap ORAL PRN (14:15)
[2018-03-30] MEDS ORDERED: Acetaminophen 500mg (ES) tab ORAL PRN (14:15)
[2018-03-30] MEDS ORDERED: Milk of Magnesia 30ml Ud ORAL PRN (14:15)
[2018-03-30] MEDS ORDERED: Fleet's Enema 133ml RECTAL SCH (14:15)
[2018-03-30 16:00] VITALS: BP 118/83
--- NOTE | 2018-03-30 16:49 | Diagnostic Imaging Report ---
Indication: Anterior abdominal wall hernia COMPARISON: None FINDINGS: Small bowel series was performed utilizing water-soluble contrast material. Serial films were obtained. There is difficulty in visualization of the small bowel because of water-soluble contrast dilution. There is contrast material that enters the colon on latter images. There is mild dilatation of distal small bowel. There is a faint amount of contrast noted within the hernia. IMPRESSION: Limited small bowel series showing contrast extending into the colon thereby passing the segment of small bowel contained within the anterior abdominal wall hernia..
--- NOTE | 2018-03-30 19:28 | General Progress Note ---
Assessment/Plan Problem List: (1) CHF (congestive heart failure) ICD Codes: I50.9 - Heart failure, unspecified SNOMED: 10426563 (2) Multiple sclerosis ICD Codes: G35 - Multiple sclerosis SNOMED: 21096846 (3) Abdominal hernia ICD Codes: K46.9 - Unspecified abdominal hernia without obstruction or gangrene SNOMED: 21320608 Assessment/Plan surg following, discussed;, dc opiates, dc ng, bowel regimen for constipation Subjective Constitutional: Reports: weakness HEENT: Reports: no symptoms Cardiovascular: Reports: no symptoms Respiratory: Reports: no symptoms Gastrointestinal/Abdominal: Reports: abdominal pain Genitourinary: Reports: no symptoms Neurologic/Psychiatric: Reports: pre-existing deficit Endocrine: Reports: no symptoms Hematologic/Lymphatic: Reports: no symptoms Allergies: Coded Allergies: MORPHINE (Verified Allergy, Unknown, 03/28/18) Objective Last 24 Hour Vital Signs Date Time Temp Pulse Resp B/P (MAP) Pulse Ox O2 Delivery O2 Flow Rate FiO2 03/30/18 16:00 98.0 113 20 118/83 (95) 93 98.0 03/30/18 15:21 98.8 03/30/18 14:19 98.8 03/30/18 12:30 98.8 124 22 155/134 (141) 98 98.8 03/30/18 12:13 98.0 03/30/18 11:43 98.0 03/30/18 08:17 Room Air 03/30/18 08:00 98.0 128 18 124/86 (99) 97 98.0 03/30/18 04:00 98.2 116 20 110/73 (85) 95 98.2 03/30/18 00:00 98.4 121 18 109/76 (87) 95 98.4 03/29/18 21:00 Room Air 03/29/18 20:00 97.9 117 20 123/78 (93) 96 97.9 Intake and Output 03/29/18 03/30/18 19:00 07:00 Intake Total 60 ml 720 ml Output Total 1300 ml 400 ml Balance -1240 ml 320 ml Intake IV Total 60 ml 720 ml Output Gastric Drainage Total 1300 ml 400 ml # Voids 5 3 Laboratory Tests 03/30/18 08:10: White Blood Count 13.5H, Red Blood Count 4.74, Hemoglobin 13.5, Hematocrit 40.7 , Mean Corpuscular Volume 86, Mean Corpuscular Hemoglobin 28.5, Mean Corpuscular Hemoglobin Concent 33.2, Red Cell Distribution Width 13.3, Platelet Count 224, Mean Platelet Volume 8.4, Neutrophils (%) (Auto) 79.3H, Lymphocytes ( %) (Auto) 10.9L, Monocytes (%) (Auto) 8.7, Eosinophils (%) (Auto) 0.2, Basophils (%) (Auto) 0.9, Sodium Level 140, Potassium Level 3.6, Chloride Level 105, Carbon Dioxide Level 24, Anion Gap 11, Blood Urea Nitrogen 18, Creatinine 1.0, Estimat Glomerular Filtration Rate > 60, Glucose Level 135H, Lactic Acid Level 1.20, Calcium Level 8.5, Total Bilirubin 1.0, Aspartate Amino Transf (AST/ SGOT) 22, Alanine Aminotransferase (ALT/SGPT) 61, Alkaline Phosphatase 111, Total Protein 7.4, Albumin 3.1L, Globulin 4.3, Albumin/Globulin Ratio 0.7L Height (Feet): 5 Height (Inches): 6.00 Weight (Pounds): 220 General Appearance: no apparent distress, alert, obese EENT: normal ENT inspection Neck: normal alignment Cardiovascular: normal rate, regular rhythm Respiratory/Chest: lungs clear, normal breath sounds Abdomen: other - vent hernia soft, c/o pain Edema: no edema noted Arm (L), no edema noted Arm (R), no edema noted Leg (L), no edema noted Leg (R), no edema noted Pedal (L), no edema noted Pedal (R), no edema noted Generalized ROZINA MOLINA Mar 30, 2018 19:28
[2018-03-30 20:00] VITALS: BP 146/95
[2018-03-30] MEDS: Metoclopramide 10mg/2ml Inj IVP PRN (20:30)
[2018-03-31] VITALS (14 sets, daily range): BP systolic 69–139; BP diastolic 48–89
[2018-03-31] MEDS: Metoclopramide 10mg/2ml Inj IVP PRN (05:24)
[2018-03-31 07:11] LABS: BASOPHILS % (AUTO) 0.6 % (0.0-2.0); EOSINOPHILS % (AUTO) 0.2 % (0.0-3.0); HEMATOCRIT 41.3 % (37.0-47.0); HEMOGLOBIN 13.7 G/DL (12.0-16.0); LYMPHOCYTES % (AUTO) 8.2 % (20.0-45.0); MEAN CORPUSCULAR VOLUME 86 FL (80-99); MONOCYTES % (AUTO) 7.8 % (1.0-10.0); NEUTROPHILS % (AUTO) 83.2 % (45.0-75.0); PLATELET COUNT 212 K/UL (150-450); RED BLOOD COUNT 4.81 M/UL (4.20-5.40); WHITE BLOOD COUNT 15.4 K/UL (4.8-10.8)
[2018-03-31 07:28] LABS: AMYLASE 41 U/L (25-115)
[2018-03-31 07:32] LABS: ALANINE AMINOTRANSFERASE 47 U/L (12-78); ALBUMIN 3.1 G/DL (3.4-5.0); ALBUMIN/GLOBULIN RATIO 0.7 (1.0-2.7); ALKALINE PHOSPHATASE 106 U/L (46-116); ANION GAP 11 mmol/L (5-15); ASPARTATE AMINO TRANSFERASE 20 U/L (15-37); BILIRUBIN,TOTAL 0.8 MG/DL (0.2-1.0); BLOOD UREA NITROGEN 38 mg/dL (7-18); CALCIUM 8.9 MG/DL (8.5-10.1); CARBON DIOXIDE 27 MMOL/L (21-32); CHLORIDE 103 MMOL/L (98-107); CREATININE 1.6 MG/DL (0.55-1.30); POTASSIUM 3.5 MMOL/L (3.5-5.1); SODIUM 141 MMOL/L (136-145)
[2018-03-31] MEDS ORDERED: Gastrograffin 30ml ORAL PRN (07:45)
[2018-03-31] MEDS ORDERED: Isovue-300 100ml vial INJ PRN (07:45)
[2018-03-31] MEDS: Pantoprazole Inj IVP SCH (08:52)
[2018-03-31] MEDS ORDERED: Piperacillin/Tazobactam 3.375 GM in NS 110 ML IVPB SCH (09:00)
[2018-03-31] MEDS: Heparin 5000 units/ml inj SUBQ SCH ×2 (09:00→21:00)
--- NOTE | 2018-03-31 11:05 | General Surgery Progress Note ---
General Surgery-Progress Note Subjective Additional Comments had small bowel series yesterday. then had BM. started on clears but did not tolerated. multiple episodes of emesis. +flatus. Objective Last 24 Hour Vital Signs Date Time Temp Pulse Resp B/P (MAP) Pulse Ox O2 Delivery O2 Flow Rate FiO2 03/31/18 08:00 98.1 107 18 112/74 (87) 95 98.1 03/31/18 08:00 Room Air 03/31/18 04:00 98.5 117 19 124/89 (101) 98 98.5 03/31/18 00:00 98.4 116 19 139/84 (102) 97 98.4 03/30/18 21:00 Room Air 03/30/18 20:00 98.4 115 20 146/95 (112) 97 98.4 03/30/18 16:00 98.0 113 20 118/83 (95) 93 98.0 03/30/18 15:21 98.8 03/30/18 14:19 98.8 03/30/18 12:30 98.8 124 22 155/134 (141) 98 98.8 03/30/18 12:13 98.0 03/30/18 11:43 98.0 I&O Intake and Output 03/30/18 03/31/18 19:00 07:00 Intake Total 600 ml 630 ml Output Total 1200 ml Balance -600 ml 630 ml Intake IV Total 600 ml 630 ml Output Gastric Drainage Total 100 ml Emesis 1100 ml # Voids 3 # Bowel Movements 1 Cardiovascular: RSR Respiratory: clear Abdomen: soft, distended, tenderness, present bowel sounds Extremities: no cyanosis Laboratory Tests Test 03/31/18 06:30 White Blood Count 15.4 K/UL (4.8-10.8) H Red Blood Count 4.81 M/UL (4.20-5.40) Hemoglobin 13.7 G/DL (12.0-16.0) Hematocrit 41.3 % (37.0-47.0) Mean Corpuscular Volume 86 FL (80-99) Mean Corpuscular Hemoglobin 28.4 PG (27.0-31.0) Mean Corpuscular Hemoglobin Concent 33.1 G/DL (32.0-36.0) Red Cell Distribution Width 13.0 % (11.6-14.8) Platelet Count 212 K/UL (150-450) Mean Platelet Volume 8.6 FL (6.5-10.1) Neutrophils (%) (Auto) 83.2 % (45.0-75.0) H Lymphocytes (%) (Auto) 8.2 % (20.0-45.0) L Monocytes (%) (Auto) 7.8 % (1.0-10.0) Eosinophils (%) (Auto) 0.2 % (0.0-3.0) Basophils (%) (Auto) 0.6 % (0.0-2.0) Erythrocyte Sedimentation Rate 45 MM/HR (0-20) H Prothrombin Time 10.7 SEC (9.30-11.50) Prothromb Time International Ratio 1.0 (0.9-1.1) Activated Partial Thromboplast Time 32 SEC (23-33) Sodium Level 141 MMOL/L (136-145) Potassium Level 3.5 MMOL/L (3.5-5.1) Chloride Level 103 MMOL/L (98-107) Carbon Dioxide Level 27 MMOL/L (21-32) Anion Gap 11 mmol/L (5-15) Blood Urea Nitrogen 38 mg/dL (7-18) H Creatinine 1.6 MG/DL (0.55-1.30) #H Estimat Glomerular Filtration Rate 35.3 mL/min (>60) Glucose Level 148 MG/DL (74-106) H Calcium Level 8.9 MG/DL (8.5-10.1) Total Bilirubin 0.8 MG/DL (0.2-1.0) Aspartate Amino Transf (AST/SGOT) 20 U/L (15-37) Alanine Aminotransferase (ALT/SGPT) 47 U/L (12-78) Alkaline Phosphatase 106 U/L (46-116) C-Reactive Protein, Quantitative 37.4 mg/dL (0.00-0.90) H Total Protein 7.3 G/DL (6.4-8.2) Albumin 3.1 G/DL (3.4-5.0) L Globulin 4.2 g/dL Albumin/Globulin Ratio 0.7 (1.0-2.7) L Amylase Level 41 U/L (25-115) Lipase 107 U/L (73-393) Plan Problems: (1) Abdominal hernia Assessment & Plan: was able to partially reduce hernia. unfortunately given patients size and chronic state of hernia likely loss of domain and cannot reduce fully pain improved. vitals improved. after partial reduction high risk for surgery GI contrast study without obstruction did not tolerate liquids Repeat CT this AM noted obstruction and more dilated bowel. discussed findings with patient. recommend exploration, possible bowel resection, possible hernia repair. given her medical / cardiac history will need to minimize anesthesia time and morbidities of operation. she is high risk for recurrence if hernia repaired and serious concerns about placing mesh. may consider making hernia opening larger to relieve obstruction with plans for repair at later date npo iv fluids iv abx consent to OR Fernando Quinonez Mar 31, 2018 11:05
--- NOTE | 2018-03-31 11:07 | Pre-Procedure Note/Attestation ---
Pre-Procedure Note/Attestation Complete Prior to Procedure Planned Procedure: not applicable Procedure Narrative: exploratory laparotomy, possible bowel resection, possible hernia repair Indications for Procedure Pre-Operative Diagnosis: incarcerated ventral hernia Attestation I attest that I discussed the nature of the procedure; its benefits; risks and complications; and alternatives (and the risks and benefits of such alternatives ), prior to the procedure, with the patient (or the patient's legal branch customer service representative). I attest that, if there was a reasonable possibility of needing a blood transfusion, the patient (or the patient's legal branch customer service representative) was given the [facility] standardized written summary, pursuant to the [employer] [place] Blood Safety Act ([place] Health and Safety Code # 1645, as amended). I attest that I re-evaluated the patient just prior to the surgery and that there has been no change in the patient's H&P, except as documented below: Fernando Quinonez Mar 31, 2018 11:07
--- NOTE | 2018-03-31 11:37 | Diagnostic Imaging Report ---
Indication: Cramping, abdominal pain Technique: Spiral acquisitions obtained through the abdomen and pelvis. Patient ingested oral contrast. No IV contrast utilized, due to renal insufficiency.. Multiplanar reconstructions were generated. Total dose length product 1084.73 mGycm. CTDIvol(s) 19.75 mGy. Dose reduction achieved using automated exposure control Comparison: 03/28/2018. Also small bowel study 03/30/2018 Findings: Again demonstrated is a large umbilical hernia containing a loop of small bowel. There is increased attenuation of the fat within the hernia, as well as increased fluid within the wall of the hernia. There is also increased edema of the fat superficial to the hernia surrounding the umbilicus. Contrast is seen within proximal small bowel all the way to the entrance of small bowel into the hernia. No contrast is seen within the small bowel within the hernia sac or in any large or small bowel distal to the hernia sac. The proximal contrast filled small bowel loops are mildly to moderately dilated. The stomach is mildly distended with contrast. There is colonic diverticulosis. No evidence of diverticulitis. A normal appendix is visualized period the distal esophagus and duodenum are unremarkable. The lack of IV contrast limits assessment of the solid organs. The liver is diffusely hypoattenuating, consistent with fatty change. The gallbladder contains a small gallstone. No biliary ductal dilatation. The pancreas, spleen, adrenals are unremarkable. The left kidney demonstrates a 2 mm calculus in the lower pole collecting system. The right kidney is unremarkable. No ureteral calculi are demonstrated. The uterus is absent, presumably postsurgically. No pelvic mass or adenopathy. There is increased edema of the anterior abdominal wall, predominantly to the right of midline. There is interim development of a pericardial effusion which measures up to 10 mm thick. The included lung bases demonstrate minimal posterior dependent atelectatic changes on the right, are otherwise clear. Previously demonstrated parenchymal infiltrates have cleared. The bones are unremarkable Impression: Large umbilical hernia with a loop of small bowel again demonstrated. However, on the current exam, small bowel proximal to the hernia is dilated and filled with contrast (presumably from earlier small bowel study), with out entry of contrast into the hernia and no contrast seen distal to the hernia sac. This is consistent with small bowel obstruction related to the hernia. In addition, there is increased edema of the wall of the hernia, of the fat within the hernia, and of the soft tissues superficial to it. This is concerning for strangulation Increased abdominal wall edema, as described New pericardial effusion Interim clearing of previously noted pulmonary infiltrates Nonobstructive left lower pole renal calculus Other findings as noted, including colonic diverticulosis, cholelithiasis, evidence of prior hysterectomy Critical value findings reviewed in person with Dr. Quinonez at approximately 11:[address] scanner at [facility] is accredited by the [employer] and the scans are performed using protocols designed to limit radiation exposure to as low as reasonably achievable to attain images of sufficient resolution adequate for diagnostic evaluation.
--- NOTE | 2018-03-31 11:39 | Diagnostic Imaging Report ---
Indication: Abdominal pain Technique: Supine view of the abdomen Comparison: Small bowel study dated 03/30/2018 Findings: Again demonstrated is contrast within small bowel. Small bowel loops are now dilated. No colonic contrast is demonstrated. Impression: Dilated contrast-filled small bowel loops, suggestive of small bowel obstruction Findings previously reviewed in person with Dr. Quinonez
--- NOTE | 2018-03-31 12:35 | Diagnostic Imaging Report ---
Indication: Abdominal pain, vomiting, abnormal renal function tests Technique: Yang-scale and duplex images of the upper abdomen were obtained Comparison: Reference made to CT scan of the same day Findings: Gallbladder demonstrates a gallstone. No gallbladder wall thickening or pericholecystic fluid Sonographic Mejia's sign is negative. Common bile duct measures 8 mm in diameter. No intrahepatic biliary ductal dilatation. Liver demonstrates diffusely increased echogenicity, consistent with diffuse hepatocellular disease, most likely fatty change, also demonstrated on recent CT scan. Portal vein and hepatic veins are patent. Pancreas is obscured by bowel gas. Spleen is unremarkable. Left kidney measures 11.3 cm in length. Right kidney measures 12 cm length. Both kidneys demonstrate normal echogenicity. There is no hydronephrosis. Focal prominence of the right kidney likely represents a lobulation, as no cyst is seen on recent CT . Abdominal aorta is partially obscured by bowel gas, visualized portions are non-aneurysmal . Impression: Cholelithiasis Ectatic extra hepatic bile ducts. Downstream obstruction not excludable. However, this is not corroborated on CT, on which no downstream obstructive lesion is demonstrated. Correlate with liver function tests Liver demonstrates diffusely increased echogenicity, consistent with diffuse hepatocellular disease, most likely fatty change, also demonstrated on CT. Note nonvisualization of the pancreas, suboptimal visualization of the abdominal aorta Note also that left renal calculus demonstrated on recent CT scan is not sonographically evident
[2018-03-31] MEDS ORDERED: Neostigmine 1mg/ml 10ml Inj ONE (13:00)
[2018-03-31] MEDS ORDERED: Labetalol 5mg/ml 20ml vial IV ONE (13:00)
[2018-03-31] MEDS ORDERED: Sterile Water Irrig 1000ml IRRIG ONE (13:00)
[2018-03-31] MEDS ORDERED: LR 1000ml ONE (13:00)
[2018-03-31] MEDS ORDERED: NS Irrig 1000ml ONE (13:00)
[2018-03-31] MEDS ORDERED: LR 1000ml 1,000 ML IVLG SCH (13:01)
--- NOTE | 2018-03-31 13:01 | Anethesia Preoperative Eval ---
Anesthesia Pre-op PMH/ROS General Date of Evaluation: Mar 31, 2018 Time of Evaluation: 13:06 Anesthesiologist: Tonny ASA Score: ASA 3 Mallampati Score Class I : Soft palate, uvula, fauces, pillars visible Class II: Soft palate, uvula, fauces visible Class III: Soft palate, base of uvula visible Class IV: Only hard plate visible Mallampati Classification: Class III Surgeon: Cristiano Diagnosis: Abd Pain Surgical Procedure: Exploratory Laparotomy, Relieve Bowel Obstruction Anesthesia History: none Family History: no anesthesia problems Allergies: Coded Allergies: MORPHINE (Verified Allergy, Unknown, 03/28/18) Medications: see eMAR Past Medical History Cardiovascular: Reports: HTN Pulmonary: Reports: asthma - Wheezing Hematology/Immune: Reports: other - Cervical CA Other: obesity - Morbid BMI 39 PSxH Narrative: Abd Hernia Repair, KAYLEE Anesthesia Pre-op Phys. Exam Physician Exam Last Vital Signs Date Time Temp Pulse Resp B/P (MAP) Pulse Ox O2 Delivery O2 Flow Rate FiO2 03/31/18 08:00 98.1 107 18 112/74 (87) 95 98.1 03/31/18 08:00 Room Air Constitutional: NAD Neurologic: CN 2-12 intact Cardiovascular: RRR Respiratory: CTA Gastrointestinal: S/NT/ND Airway Exam Mallampati Score: Class III MO: limited ROM: limited Teeth: missing, intact Anesthesia Pre-op A/P Labs Hematology Test 03/31/18 06:30 White Blood Count 15.4 K/UL (4.8-10.8) H Red Blood Count 4.81 M/UL (4.20-5.40) Hemoglobin 13.7 G/DL (12.0-16.0) Hematocrit 41.3 % (37.0-47.0) Mean Corpuscular Volume 86 FL (80-99) Mean Corpuscular Hemoglobin 28.4 PG (27.0-31.0) Mean Corpuscular Hemoglobin Concent 33.1 G/DL (32.0-36.0) Red Cell Distribution Width 13.0 % (11.6-14.8) Platelet Count 212 K/UL (150-450) Mean Platelet Volume 8.6 FL (6.5-10.1) Neutrophils (%) (Auto) 83.2 % (45.0-75.0) H Lymphocytes (%) (Auto) 8.2 % (20.0-45.0) L Monocytes (%) (Auto) 7.8 % (1.0-10.0) Eosinophils (%) (Auto) 0.2 % (0.0-3.0) Basophils (%) (Auto) 0.6 % (0.0-2.0) Erythrocyte Sedimentation Rate 45 MM/HR (0-20) H Coagulation Test 03/31/18 06:30 Prothrombin Time 10.7 SEC (9.30-11.50) Prothromb Time International Ratio 1.0 (0.9-1.1) Activated Partial Thromboplast Time 32 SEC (23-33) Chemistry Test 03/31/18 06:30 Sodium Level 141 MMOL/L (136-145) Potassium Level 3.5 MMOL/L (3.5-5.1) Chloride Level 103 MMOL/L (98-107) Carbon Dioxide Level 27 MMOL/L (21-32) Anion Gap 11 mmol/L (5-15) Blood Urea Nitrogen 38 mg/dL (7-18) H Creatinine 1.6 MG/DL (0.55-1.30) #H Estimat Glomerular Filtration Rate 35.3 mL/min (>60) Glucose Level 148 MG/DL (74-106) H Calcium Level 8.9 MG/DL (8.5-10.1) Total Bilirubin 0.8 MG/DL (0.2-1.0) Aspartate Amino Transf (AST/SGOT) 20 U/L (15-37) Alanine Aminotransferase (ALT/SGPT) 47 U/L (12-78) Alkaline Phosphatase 106 U/L (46-116) C-Reactive Protein, Quantitative 37.4 mg/dL (0.00-0.90) H Total Protein 7.3 G/DL (6.4-8.2) Albumin 3.1 G/DL (3.4-5.0) L Globulin 4.2 g/dL Albumin/Globulin Ratio 0.7 (1.0-2.7) L Amylase Level 41 U/L (25-115) Lipase 107 U/L (73-393) Risk Assessment & Plan Assessment: ASA 3 Plan: GA, SED, GlideScope Status Change Before Surgery: No Pre-Antibiotics Dru Grams Ancef IV Given Within 1 Hr of Incision: Yes Time Given: 13:36 Keegan Lancaster MD Mar 31, 2018 13:01
[2018-03-31] MEDS ORDERED: Lidocaine 1% MPF 10mg/ml 5ml ONE (13:04)
[2018-03-31] MEDS ORDERED: Sodium Chloride 10ml vial INJ ONE (13:04)
[2018-03-31] MEDS ORDERED: Dexamethasone 4mg/ml vial ONE (13:04)
--- NOTE | 2018-03-31 13:13 | Immediate Post-Op Evaluation ---
Immediate Post-Op Evalulation Immediate Post-Op Evalulation Procedure: Exploratory Laparotomy, Relieve Bowel Obstruction Date of Evaluation: Mar 31, 2018 Time of Evaluation: 16:28 IV Fluids: 400 LR Blood Products: 0 Estimated Blood Loss: 50 Blood Pressure Systolic: 132 Blood Pressure Diastolic: 77 Pulse Rate: 102 Respiratory Rate: 20 O2 Sat by Pulse Oximetry: 91 Temperature (Fahrenheit): 98.6 Pain Score (1-10): 2 Nausea: No Vomiting: No Complications 0 Patient Status: awake, reacts, patent, extubated, none Hydration Status: adequate Dru Grams Ancef IV Given Within 1 Hr of Incision: Yes Time Given: 13:36 Keegan Lancaster MD Mar 31, 2018 13:13
[2018-03-31] MEDS ORDERED: fentaNYL 100 mcg/2 mL IV PRN ×2 (13:15→17:45)
[2018-03-31] MEDS ORDERED: LORazepam Inj 2mg/ml 1ml IV PRN ×2 (13:15→17:30)
[2018-03-31] MEDS ORDERED: Atropine Inj 1mg/10ml Syr IV PRN ×2 (13:15→17:30)
[2018-03-31] MEDS ORDERED: Acetaminophen (Non formulary) 100 ML IV ONE (13:15)
[2018-03-31] MEDS ORDERED: DiphenhydrAMINE 50mg/ml Inj IVP PRN ×4 (13:15→17:40)
[2018-03-31] MEDS ORDERED: Midazolam 2mg/2ml Inj IVP PRN ×2 (13:15→17:30)
[2018-03-31] MEDS ORDERED: Metoclopramide 10mg/2ml Inj IVP PRN ×3 (13:15→20:15)
[2018-03-31] MEDS ORDERED: Labetalol 5mg/ml 20ml vial IV PRN ×2 (13:15→17:45)
[2018-03-31] MEDS ORDERED: Lidocaine 1% Plain 30 ml INJ ONE (13:20)
[2018-03-31] MEDS ORDERED: fentaNYL 100 mcg/2 mL IV ONE ×2 (13:21→15:16)
[2018-03-31] MEDS ORDERED: Propofol 200mg/20ml IV ONE (13:22)
[2018-03-31] MEDS ORDERED: Zemuron 50mg/5ml Inj IV ONE (13:26)
[2018-03-31] MEDS ORDERED: Glycopyrrolate 0.2mg/ml 1ml Vial ONE (14:17)
[2018-03-31] MEDS ORDERED: Hydromorphone 0.5mg/0.5ml inj IVP PRN ×2 (15:33→18:45)
[2018-03-31] MEDS ORDERED: HYDROmorphone 1mg/ml Carpuject IVP PRN ×2 (15:33→18:45)
--- NOTE | 2018-03-31 15:33 | Brief Operative Note ---
Immediate Post Operative Note Operative Note Pre-op Diagnosis: incarcerated ventral hernia Procedure: 1. exploratory laparotomy 2. small bowel resection 3. repair of incisional ventral hernia 4. omentectomy Post-op Diagnosis: same as pre-op Surgeon: stephen Anesthesiologist: ervin Anesthesia: general Specimen: yes Complications: none Condition: stable Fluids: see records Estimated Blood Loss: minimal Drains: none Implant(s) used?: No Fernando Quinonez Mar 31, 2018 15:33
[2018-03-31] MEDS ORDERED: Albuterol ud Inhalation ONE (15:55)
[2018-03-31] MEDS ORDERED: Albuterol ud Inhalation HHN SCH (16:35)
[2018-03-31] MEDS ORDERED: Acetaminophen 650 MG SUPP RECTAL PRN (17:39)
[2018-03-31] MEDS ORDERED: D5W w/KCl 20mEq 1,000 ML IV SCH (17:45)
--- NOTE | 2018-03-31 18:34 | General Progress Note ---
Assessment/Plan Problem List: (1) CHF (congestive heart failure) ICD Codes: I50.9 - Heart failure, unspecified SNOMED: 23524466 (2) Multiple sclerosis ICD Codes: G35 - Multiple sclerosis SNOMED: 92829716 (3) Abdominal hernia ICD Codes: K46.9 - Unspecified abdominal hernia without obstruction or gangrene SNOMED: 56928549 (4) SBO (small bowel obstruction) ICD Codes: K56.609 - Unspecified intestinal obstruction, unspecified as to partial versus complete obstruction SNOMED: 453194115 (5) ABRAHAN (acute kidney injury) ICD Codes: N17.9 - Acute kidney failure, unspecified SNOMED: 42958781 Assessment/Plan surg following, discussed;, postop surg for sbo, abrahan likely prerenal, hydrate Subjective Constitutional: Reports: no symptoms HEENT: Reports: no symptoms Cardiovascular: Reports: no symptoms Respiratory: Reports: no symptoms Gastrointestinal/Abdominal: Reports: abdominal pain Genitourinary: Reports: no symptoms Neurologic/Psychiatric: Reports: no symptoms, pre-existing deficit Endocrine: Reports: no symptoms Hematologic/Lymphatic: Reports: no symptoms Allergies: Coded Allergies: MORPHINE (Verified Allergy, Unknown, 03/28/18) Objective Last 24 Hour Vital Signs Date Time Temp Pulse Resp B/P (MAP) Pulse Ox O2 Delivery O2 Flow Rate FiO2 03/31/18 18:01 99.1 03/31/18 17:05 97.2 103 22 114/66 96 Nasal Cannula 4 97.2 103 03/31/18 16:45 96 26 105/65 94 Nasal Cannula 4 96 03/31/18 16:35 92 26 120/68 95 Simple Mask 6 92 03/31/18 16:30 95 38 112/64 93 Simple Mask 6 95 03/31/18 16:25 101 38 102/64 91 Simple Mask 10 101 03/31/18 16:19 209.5 102 20 91 03/31/18 16:17 98.5 106 36 119/77 87 Simple Mask 10 98.5 106 03/31/18 08:00 98.1 107 18 112/74 (87) 95 98.1 03/31/18 08:00 Room Air 03/31/18 04:00 98.5 117 19 124/89 (101) 98 98.5 03/31/18 00:00 98.4 116 19 139/84 (102) 97 98.4 03/30/18 21:00 Room Air 03/30/18 20:00 98.4 115 20 146/95 (112) 97 98.4 Intake and Output 03/30/18 03/31/18 19:00 07:00 Intake Total 600 ml 630 ml Output Total 1200 ml Balance -600 ml 630 ml Intake IV Total 600 ml 630 ml Gastric Drainage Total 100 ml Emesis 1100 ml # Voids 3 # Bowel Movements 1 Laboratory Tests 03/31/18 06:30: White Blood Count 15.4H, Red Blood Count 4.81, Hemoglobin 13.7, Hematocrit 41.3 , Mean Corpuscular Volume 86, Mean Corpuscular Hemoglobin 28.4, Mean Corpuscular Hemoglobin Concent 33.1, Red Cell Distribution Width 13.0, Platelet Count 212, Mean Platelet Volume 8.6, Neutrophils (%) (Auto) 83.2H, Lymphocytes ( %) (Auto) 8.2L, Monocytes (%) (Auto) 7.8, Eosinophils (%) (Auto) 0.2, Basophils (%) (Auto) 0.6, Erythrocyte Sedimentation Rate 45H, Prothrombin Time 10.7, Prothromb Time International Ratio 1.0, Activated Partial Thromboplast Time 32, Sodium Level 141, Potassium Level 3.5, Chloride Level 103, Carbon Dioxide Level 27, Anion Gap 11, Blood Urea Nitrogen 38H, Creatinine 1.6#H, Estimat Glomerular Filtration Rate 35.3, Glucose Level 148H, Calcium Level 8.9, Total Bilirubin 0.8 , Aspartate Amino Transf (AST/SGOT) 20, Alanine Aminotransferase (ALT/SGPT) 47, Alkaline Phosphatase 106, C-Reactive Protein, Quantitative 37.4H, Total Protein 7.3, Albumin 3.1L, Globulin 4.2, Albumin/Globulin Ratio 0.7L, Amylase Level 41, Lipase 107 Height (Feet): 5 Height (Inches): 6.00 Weight (Pounds): 220 General Appearance: alert, obese EENT: normal ENT inspection Neck: normal alignment Cardiovascular: normal rate Respiratory/Chest: lungs clear Abdomen: other - postop, distention Edema: no edema noted Arm (L), no edema noted Arm (R), no edema noted Leg (L), no edema noted Leg (R), no edema noted Pedal (L), no edema noted Pedal (R), no edema noted Generalized Neurologic: other - min L side weak ROZINA MOLINA Mar 31, 2018 18:34
[2018-03-31] MEDS: Albuterol ud Inhalation HHN SCH (19:15)
[2018-04-01] VITALS (24 sets, daily range): BP systolic 98–156; BP diastolic 40–99
[2018-04-01] MEDS: Piperacillin/Tazobactam 3.375 GM in NS 110 ML IVPB SCH ×3 (01:00→17:07)
--- NOTE | 2018-04-01 01:45 | Operative Note - Dictated ---
DATE OF OPERATION: 03/31/2018 PREOPERATIVE DIAGNOSIS: Incarcerated ventral hernia with small bowel obstruction. POSTOPERATIVE DIAGNOSIS: Incarcerated ventral hernia with small bowel obstruction. OPERATIONS PERFORMED: 1. Exploratory laparotomy. 2. Small bowel resection. 3. Repair of incisional ventral hernia. 4. Omentectomy. ATTENDING SURGEON: Fernando Quinonez M.D. GROUNDWATER MONITORING TECHNICIAN: None. ANESTHESIOLOGIST: Keegan Lancaster M.D. ANESTHESIA: General [employer]. ESTIMATED BLOOD LOSS: Minimal. IV FLUIDS: Please see anesthesia records. COMPLICATIONS: None. WOUND CLASSIFICATION: Class III. DRAINS: A 19-Moldovan Jeff-Mabry drain left in the subcutaneous tissue where a prior hernia sac was, to obliterate sac without seroma formation. ANTIBIOTICS: The patient was given 3 g of Ancef IV prior to entering the operating room, was on scheduled IV Zosyn. COUNTS: Sponge and needle count correct x2. INDICATIONS FOR PROCEDURE: This is a 43-year-old female with multiple medical comorbidities and significant past medical history/cardiac history, who presented to the emergency department of [facility] complaining of acute onset abdominal pain. The patient was noted to have a small known prior incisional ventral hernia and at least two prior ventral hernia repairs with prosthetic placed prior, and during prior surgery, both of which have recurred including most recent one. The patient states that she was out with her family and noted some acute pain when trying to go to the bathroom. In the emergency department, she was noted to be tender and the hernia was fortunately partially reduced and she was admitted for management. In the subsequent 48 hours, she began passing flatus and pain was improving, so NG tube was removed and the patient was started on a clear liquid diet. Unfortunately, she began to have worsening abdominal pain and multiple bouts of nonbloody emesis. Repeat CT scan was performed, demonstrating worsening incarcerated small bowel with obstruction. Therefore, decision made to go to the operating room. Risks, benefits, and alternatives were discussed with the patient and her family in detail including her cardiac risks, risk of infection, wound dehiscence, recurrence, leaks, bleeding, infection, and injury to other organs. The patient expressed understanding and consented to surgery with family present in the discussion. OPERATIVE NOTE: The patient was taken to the operating room and placed on the operating table in supine position with bilateral arms out. All bony prominences were well padded. SCDs were placed. Preoperative time-out was taken in identifying the patient, procedure, operative staff, and surgical staff. The patient was given 3 g of Ancef IV one hour prior to cut time as well as had Zosyn IV earlier this morning for acute active inflammatory process. A Alvarez catheter was placed using standard sterile technique. General anesthesia was induced. The patient was intubated. The abdomen was prepped and draped in standard surgical fashion. The prior ventral incision was identified and a fresh #10 blade was used to enter the abdomen through the prior incision. Upon entering the abdomen, incision was carried down to the fascia and hernia sac with electrocautery. The hernia sac was opened and serosanguineous fluid was evacuated. In the hernia sac, there was a significant amount of omentum and a loop of small bowel was dusky. At this time, the prior midline incision and Prolene sutures were identified. The hernia defect was identified and opened cephalad and caudad until the abdomen was explored. Given the fair amount of omentum being within the hernia sac and some loss of domain, omentectomy was performed using a Thunderbeat energy device. The omentum was sent off the operative field as specimen #1. Following this, area of small bowel with some ischemia was noted. A warm lap was placed and it was left for re-evaluation while the abdomen was explored. The remainder of the abdomen was scored. No other abnormalities noted. The abdomen was washed out with warm normal saline. Following this, decision was made to perform a small resection of this portion of potential ischemic small bowel. Given the area in which it was incarcerated through the small hernia defect, it was very strictured and would likely lead to a stricture even if the bowel was viable. At this time, two ends of the proximal and distal resection area of healthy small bowel was identified and 3-0 silk interrupted sutures were placed. Following this, enterotomy was made in the proximal and distal sites of anastomosis and a linear 55 mm HUMBERTO stapler was used to enter into the bowel and perform anastomosis. Following this, the remaining defect was closed using a linear 55 mm stapler and the remaining mesentery of the portion of small bowel obstruction was divided using a Thunderbeat energy device. The mesenteric defect was closed using interrupted 3-0 silk sutures followed by inversion of the staple line with using 3-0 silk interrupted Lembert sutures. The anastomosis was checked and identified to be patent and viable. At this time, we turned our attention to a large hernia sac above the fascia. Hernia sac was dissected out and excised, sent to pathology as specimen #3. Following this, the small bowel contents and the abdominal contents noted to be within the abdomen without complication. There was no significant loss of domain once the omentum was removed. Decision at this time was made to close the midline fascia. I discussed prior with the patient and her family that if it was possible, I would consider closing the fascia, but that I would not place a mesh given her two prior meshes and potential of infection especially given the bowel resection that was performed. The high risk of recurrence was discussed with the patient who expressed understanding. At this time, the fascia was reapproximated using a #1 looped PDS suture. The fascia was reapproximated without significant tension fortunately and no areas of significant gaps. Given the area of hernia sac and subcutaneous tissue from prior, decision made to leave a 19-Moldovan Bentley drain in the defect site. A 19-Moldovan Bentley drain was placed through the subcutaneous tissue and placed above the area of the fascia for drainage. Following this, the wound was irrigated with copious amounts of warm saline and the skin incision was closed using surgical skin shayan. The patient tolerated the procedure well, was extubated and taken to postanesthesia care in stable condition. Fernando Quinonez M.D. DR: SHELBY JOB#: [id number] CC: ALVINO
[2018-04-01 07:19] LABS: ANION GAP 10 mmol/L (5-15); BLOOD UREA NITROGEN 36 mg/dL (7-18); CALCIUM 7.9 MG/DL (8.5-10.1); CARBON DIOXIDE 23 MMOL/L (21-32); CHLORIDE 110 MMOL/L (98-107); CREATININE 1.5 MG/DL (0.55-1.30); POTASSIUM 3.9 MMOL/L (3.5-5.1); SODIUM 143 MMOL/L (136-145)
[2018-04-01 07:20] LABS: BASOPHILS % (AUTO) 0.3 % (0.0-2.0); HEMATOCRIT 33.4 % (37.0-47.0); HEMOGLOBIN 10.8 G/DL (12.0-16.0); LYMPHOCYTES % (AUTO) 7.1 % (20.0-45.0); MEAN CORPUSCULAR VOLUME 86 FL (80-99); MONOCYTES % (AUTO) 11.8 % (1.0-10.0); NEUTROPHILS % (AUTO) 80.9 % (45.0-75.0); PLATELET COUNT 175 K/UL (150-450); RED BLOOD COUNT 3.89 M/UL (4.20-5.40); RED CELL DISTRIBUTION WIDTH 13.4 % (11.6-14.8)
[2018-04-01] MEDS: Albuterol ud Inhalation HHN SCH ×3 (07:37→20:53)
[2018-04-01] MEDS ORDERED: Gastrograffin 30ml ORAL PRN (07:45)
[2018-04-01] MEDS ORDERED: Isovue-300 100ml vial INJ PRN (07:45)
[2018-04-01 08:07] LABS: APPEARANCE,URINE SLIGHTLY CLOUDY; BILIRUBIN, URINE NEGATIVE (NEGATIVE); GLUCOSE, URINE (UA) NEGATIVE (NEGATIVE); KETONES,URINE NEGATIVE (NEGATIVE); LEUKOCYTE ESTERASE ,URINE NEGATIVE (NEGATIVE); NITRITE,URINE NEGATIVE (NEGATIVE); PH,URINE 5 (4.5-8.0); PROTEIN,URINE 1+ (NEGATIVE); UROBILINOGEN,URINE NORMAL MG/DL (0.0-1.0)
[2018-04-01] MEDS: Pantoprazole Inj IVP SCH (08:25)
[2018-04-01] MEDS: Heparin 5000 units/ml inj SUBQ SCH ×2 (08:26→20:38)
[2018-04-01 08:29] LABS: COLOR,URINE YELLOW
--- NOTE | 2018-04-01 11:18 | 48 Hour Post Anesthesia Eval ---
Post Anesthesia Evaluation Procedure: Exploratory Laparotomy, Relieve Bowel Obstruction Date of Evaluation: Apr 01, 2018 Time of Evaluation: 07:15 Blood Pressure Systolic: 135 0: 49 Pulse Rate: 97 Respiratory Rate: 18 Temperature (Fahrenheit): 98.7 O2 Sat by Pulse Oximetry: 95 Airway: patent Nausea: No Vomiting: No Pain Intensity: 2 Hydration Status: adequate Cardiopulmonary Status: at baseline Mental Status/LOC: patient returned to baseline Post-Anesthesia Complications: 0 Follow-up care needed: N/A - further care as per primary team Judy Skinner MD Apr 01, 2018 11:18
--- NOTE | 2018-04-01 16:42 | General Progress Note ---
Assessment/Plan Problem List: (1) CHF (congestive heart failure) ICD Codes: I50.9 - Heart failure, unspecified SNOMED: 10348091 (2) Multiple sclerosis ICD Codes: G35 - Multiple sclerosis SNOMED: 16721462 (3) Abdominal hernia ICD Codes: K46.9 - Unspecified abdominal hernia without obstruction or gangrene SNOMED: 04180595 (4) SBO (small bowel obstruction) ICD Codes: K56.609 - Unspecified intestinal obstruction, unspecified as to partial versus complete obstruction SNOMED: 731555069 (5) ABRAHAN (acute kidney injury) ICD Codes: N17.9 - Acute kidney failure, unspecified SNOMED: 33348183 Assessment/Plan surg following, discussed;, postop surg for sbo, abrahan likely prerenal, hydrate try to minimize opiate Subjective Constitutional: Reports: weakness HEENT: Reports: no symptoms Cardiovascular: Reports: no symptoms Respiratory: Reports: no symptoms Gastrointestinal/Abdominal: Reports: abdominal pain Genitourinary: Reports: no symptoms Neurologic/Psychiatric: Reports: no symptoms, pre-existing deficit Endocrine: Reports: no symptoms Hematologic/Lymphatic: Reports: no symptoms Allergies: Coded Allergies: MORPHINE (Verified Allergy, Unknown, 03/28/18) Objective Last 24 Hour Vital Signs Date Time Temp Pulse Resp B/P (MAP) Pulse Ox O2 Delivery O2 Flow Rate FiO2 04/01/18 15:10 99 04/01/18 15:00 98 20 122/75 (91) 96 04/01/18 14:00 101 24 118/64 (82) 95 04/01/18 13:00 104 23 128/61 (83) 92 04/01/18 12:59 90 18 97 Nasal Cannula 5.0 40 04/01/18 12:49 96 18 95 Nasal Cannula 5.0 40 04/01/18 12:00 99.9 92 17 114/91 (99) 98 99.9 04/01/18 11:18 209.7 97 18 95 04/01/18 11:00 98 24 104/57 (73) 96 04/01/18 10:00 97 23 123/40 (67) 94 04/01/18 09:00 Nasal Cannula 4.0 04/01/18 09:00 98.8 98 25 116/78 (91) 92 98.8 04/01/18 08:05 95 04/01/18 08:00 92 24 98/65 (76) 93 04/01/18 07:45 94 18 97 Nasal Cannula 5.0 40 04/01/18 07:37 96 Venturi Mask 10.0 45 04/01/18 07:37 91 20 95 Nasal Cannula 5.0 40 04/01/18 07:37 Venturi Mask 10.0 45 04/01/18 07:00 97 18 135/49 (77) 95 04/01/18 06:00 86 18 108/61 (77) 94 04/01/18 05:29 98.7 04/01/18 05:00 98.7 92 24 130/51 (77) 94 98.7 04/01/18 04:59 98.4 04/01/18 04:00 98.4 85 18 123/50 (74) 94 98.4 04/01/18 03:00 86 18 113/53 (73) 94 04/01/18 02:00 88 18 116/70 (85) 92 04/01/18 01:00 88 18 124/47 (72) 93 04/01/18 01:00 84 18 124/47 (72) 93 04/01/18 00:00 98.7 89 18 116/49 (71) 93 98.7 03/31/18 23:00 99 18 96/58 (71) 93 03/31/18 22:00 91 18 92/48 (63) 96 03/31/18 21:50 98.6 03/31/18 21:00 Venturi Mask 10.0 03/31/18 21:00 91 18 104/49 (67) 94 03/31/18 20:00 98.6 93 18 69/57 (61) 93 98.6 03/31/18 19:31 92 18 98 Nasal Cannula 2.0 28 03/31/18 19:21 Nasal Cannula 2.0 28 03/31/18 19:20 95 20 96 Nasal Cannula 2.0 28 03/31/18 19:20 96 Nasal Cannula 2.0 28 03/31/18 19:19 95 20 Nasal Cannula 2.0 28 03/31/18 19:00 98.7 94 18 85/55 (65) 95 98.7 03/31/18 18:01 99.1 03/31/18 17:05 97.2 103 22 114/66 96 Nasal Cannula 4 97.2 103 03/31/18 16:45 96 26 105/65 94 Nasal Cannula 4 96 Intake and Output 03/31/18 04/01/18 19:00 07:00 Intake Total 900 ml 1965.0 ml Output Total 610 ml 765 ml Balance 290 ml 1200.0 ml Intake IV Total 900 ml 1965.0 ml Output Urine Total 180 ml 725 ml Emesis 400 ml Drainage Total 40 ml Estimated Blood Loss 30 ml Laboratory Tests 04/01/18 03:00: Urine Color Yellow, Urine Appearance Slightly cloudy, Urine pH 5, Urine Specific [place] 1.020, Urine Protein 1+H, Urine Glucose (UA) Negative, Urine Ketones Negative, Urine Blood Negative, Urine Nitrite Negative, Urine Bilirubin Negative, Urine Urobilinogen Normal, Urine Leukocyte Esterase Negative, Urine RBC 0, Urine WBC 0, Urine Squamous Epithelial Cells Occasional, Urine Bacteria Few, Urine Random Sodium < 20L, Urine Creatinine 149.4H 04/01/18 06:49: White Blood Count 8.0, Red Blood Count 3.89L, Hemoglobin 10.8L, Hematocrit 33.4L , Mean Corpuscular Volume 86, Mean Corpuscular Hemoglobin 27.8, Mean Corpuscular Hemoglobin Concent 32.4, Red Cell Distribution Width 13.4, Platelet Count 175, Mean Platelet Volume 8.9, Neutrophils (%) (Auto) 80.9H, Lymphocytes ( %) (Auto) 7.1L, Monocytes (%) (Auto) 11.8H, Eosinophils (%) (Auto) 0.0, Basophils (%) (Auto) 0.3, Sodium Level 143, Potassium Level 3.9, Chloride Level 110H, Carbon Dioxide Level 23, Anion Gap 10, Blood Urea Nitrogen 36H, Creatinine 1.5H, Estimat Glomerular Filtration Rate 38.1, Glucose Level 151H, Calcium Level 7.9L Height (Feet): 5 Height (Inches): 6.00 Weight (Pounds): 220 General Appearance: no apparent distress, other EENT: normal ENT inspection Neck: normal alignment Cardiovascular: normal rate, regular rhythm Respiratory/Chest: lungs clear, normal breath sounds Abdomen: non tender, distended Extremities: non-tender Edema: no edema noted Arm (L), no edema noted Arm (R), no edema noted Leg (L), no edema noted Leg (R), no edema noted Pedal (L), no edema noted Pedal (R), no edema noted Generalized ROZINA MOLINA Apr 01, 2018 16:42
[2018-04-01] MEDS ORDERED: HYDROmorphone 1mg/ml Carpuject IVP PRN (16:53)
[2018-04-02] VITALS (17 sets, daily range): BP systolic 89–157; BP diastolic 59–100
[2018-04-02] MEDS: Piperacillin/Tazobactam 3.375 GM in NS 110 ML IVPB SCH ×3 (00:54→17:26)
[2018-04-02 06:53] LABS: BASOPHILS % (AUTO) 1.1 % (0.0-2.0); EOSINOPHILS % (AUTO) 3.1 % (0.0-3.0); HEMATOCRIT 31.1 % (37.0-47.0); HEMOGLOBIN 9.8 G/DL (12.0-16.0); LYMPHOCYTES % (AUTO) 12.7 % (20.0-45.0); MEAN CORPUSCULAR VOLUME 88 FL (80-99); MONOCYTES % (AUTO) 10.6 % (1.0-10.0); NEUTROPHILS % (AUTO) 72.4 % (45.0-75.0); PLATELET COUNT 157 K/UL (150-450); RED BLOOD COUNT 3.56 M/UL (4.20-5.40); RED CELL DISTRIBUTION WIDTH 13.7 % (11.6-14.8); WHITE BLOOD COUNT 6.4 K/UL (4.8-10.8)
[2018-04-02 07:13] LABS: ANION GAP 6 mmol/L (5-15); BLOOD UREA NITROGEN 23 mg/dL (7-18); CALCIUM 8.3 MG/DL (8.5-10.1); CARBON DIOXIDE 25 MMOL/L (21-32); CHLORIDE 115 MMOL/L (98-107); CREATININE 0.9 MG/DL (0.55-1.30); POTASSIUM 4.1 MMOL/L (3.5-5.1); SODIUM 146 MMOL/L (136-145)
[2018-04-02] MEDS: Albuterol ud Inhalation HHN SCH ×3 (07:17→19:44)
[2018-04-02] MEDS: Heparin 5000 units/ml inj SUBQ SCH ×2 (09:00→20:27)
[2018-04-02] MEDS: Pantoprazole Inj IVP SCH (09:49)
--- NOTE | 2018-04-02 12:57 | General Progress Note ---
Progress Note Progress Note Surgery: no acute events. improving. tachycardia improving. labs improving. exam stable. no n/v/f/c. no flatus or BM yet. notes bowel sounds. abd soft, obese, distended, incisional tenderness, drain serous. -okay to downgrade from ICU -strict NPO -iv fluids -iv abx awaiting return of bowel function drain care Fernando Quinonez Apr 02, 2018 12:57
--- NOTE | 2018-04-02 12:59 | General Progress Note ---
Assessment/Plan Problem List: (1) CHF (congestive heart failure) ICD Codes: I50.9 - Heart failure, unspecified SNOMED: 92546660 (2) Multiple sclerosis ICD Codes: G35 - Multiple sclerosis SNOMED: 52690057 (3) Abdominal hernia ICD Codes: K46.9 - Unspecified abdominal hernia without obstruction or gangrene SNOMED: 65645692 (4) SBO (small bowel obstruction) ICD Codes: K56.609 - Unspecified intestinal obstruction, unspecified as to partial versus complete obstruction SNOMED: 169874941 (5) ABRAHAN (acute kidney injury) ICD Codes: N17.9 - Acute kidney failure, unspecified SNOMED: 17221707 Assessment/Plan surg following, discussed;, postop surg for sbo, abrahan likely prerenal, hydrate , abrahan resolved, try to minimize opiate, mobilize when ok with surgeion Subjective Constitutional: Reports: weakness HEENT: Reports: no symptoms Cardiovascular: Reports: no symptoms Respiratory: Reports: no symptoms Gastrointestinal/Abdominal: Reports: abdominal pain Genitourinary: Reports: no symptoms Neurologic/Psychiatric: Reports: pre-existing deficit Endocrine: Reports: no symptoms Hematologic/Lymphatic: Reports: no symptoms Allergies: Coded Allergies: MORPHINE (Verified Allergy, Unknown, 03/28/18) Objective Last 24 Hour Vital Signs Date Time Temp Pulse Resp B/P (MAP) Pulse Ox O2 Delivery O2 Flow Rate FiO2 04/02/18 10:23 98.7 04/02/18 09:48 98.7 04/02/18 09:00 Nasal Cannula 4.0 04/02/18 09:00 111 20 116/69 (85) 98 04/02/18 08:00 98.7 110 22 110/70 (83) 98 98.7 04/02/18 08:00 91 04/02/18 07:25 103 22 98 Venturi Mask 10.0 40 04/02/18 07:15 106 20 93 Venturi Mask 10.0 40 04/02/18 07:15 93 Venturi Mask 10.0 40 04/02/18 07:15 Venturi Mask 10.0 40 04/02/18 07:00 102 22 112/62 (79) 98 04/02/18 06:00 113 23 157/59 (91) 98 04/02/18 05:00 109 23 150/59 (89) 98 04/02/18 04:00 87 8/30/18 04:00 99.5 105 23 104/76 (85) 98 99.5 04/02/18 03:00 117 26 102/71 (81) 96 04/02/18 02:00 116 26 112/71 (85) 96 04/02/18 01:00 114 26 100/62 (75) 96 04/02/18 00:00 113 04/02/18 00:00 99.5 114 26 124/62 (82) 96 99.5 04/01/18 23:00 114 29 103/62 (76) 96 04/01/18 22:00 117 26 128/99 (109) 96 04/01/18 21:00 118 27 132/90 (104) 95 04/01/18 21:00 Nasal Cannula 4.0 04/01/18 20:55 111 23 98 Venturi Mask 10.0 40 04/01/18 20:40 108 24 95 Venturi Mask 10.0 40 04/01/18 20:08 95 Venturi Mask 10.0 45 04/01/18 20:08 Venturi Mask 10.0 45 04/01/18 20:00 99.5 114 26 100/62 (75) 96 99.5 04/01/18 20:00 66 04/01/18 19:00 111 27 110/51 (70) 96 04/01/18 18:00 112 27 156/53 (87) 97 04/01/18 17:00 107 33 150/92 (111) 93 04/01/18 16:00 97.8 105 25 110/94 (99) 97 97.8 04/01/18 15:10 99 04/01/18 15:00 98 20 122/75 (91) 96 04/01/18 14:00 101 24 118/64 (82) 95 04/01/18 13:00 104 23 128/61 (83) 92 04/01/18 12:59 90 18 97 Nasal Cannula 5.0 40 Intake and Output 04/01/18 04/02/18 19:00 07:00 Intake Total 1826.0 ml 1152.5 ml Output Total 505 ml 650 ml Balance 1321.0 ml 502.5 ml Intake IV Total 1826.0 ml 1152.5 ml Output Urine Total 475 ml 630 ml Drainage Total 30 ml 20 ml Laboratory Tests 04/02/18 05:35: White Blood Count 6.4, Red Blood Count 3.56L, Hemoglobin 9.8L, Hematocrit 31.1L , Mean Corpuscular Volume 88, Mean Corpuscular Hemoglobin 27.7, Mean Corpuscular Hemoglobin Concent 31.6L, Red Cell Distribution Width 13.7, Platelet Count 157, Mean Platelet Volume 8.0, Neutrophils (%) (Auto) 72.4, Lymphocytes (%) (Auto) 12.7L, Monocytes (%) (Auto) 10.6H, Eosinophils (%) (Auto ) 3.1H, Basophils (%) (Auto) 1.1, Sodium Level 146H, Potassium Level 4.1, Chloride Level 115H, Carbon Dioxide Level 25, Anion Gap 6, Blood Urea Nitrogen 23H, Creatinine 0.9, Estimat Glomerular Filtration Rate > 60, Glucose Level 114H , Calcium Level 8.3L Height (Feet): 5 Height (Inches): 6.00 Weight (Pounds): 220 General Appearance: no apparent distress, obese EENT: normal ENT inspection Neck: normal alignment Cardiovascular: normal rate, regular rhythm Respiratory/Chest: lungs clear Abdomen: distended, other - postop dressing Edema: no edema noted Arm (L), no edema noted Arm (R), no edema noted Leg (L), no edema noted Leg (R), no edema noted Pedal (L), no edema noted Pedal (R), no edema noted Generalized Neurologic: utilization review rn II-XII grossly normal ROZINA MOLINA Apr 02, 2018 12:59
[2018-04-02] MEDS ORDERED: Ketorolac 30mg Inj IV SCH (20:15)
[2018-04-03] VITALS: BP 132/90
[2018-04-03] MEDS: Piperacillin/Tazobactam 3.375 GM in NS 110 ML IVPB SCH ×3 (00:51→16:35)
[2018-04-03 04:00] VITALS: BP 137/103
[2018-04-03 06:54] LABS: BASOPHILS % (AUTO) 1.4 % (0.0-2.0); EOSINOPHILS % (AUTO) 4.2 % (0.0-3.0); HEMATOCRIT 29.7 % (37.0-47.0); HEMOGLOBIN 9.9 G/DL (12.0-16.0); LYMPHOCYTES % (AUTO) 9.8 % (20.0-45.0); MEAN CORPUSCULAR VOLUME 87 FL (80-99); MONOCYTES % (AUTO) 7.9 % (1.0-10.0); NEUTROPHILS % (AUTO) 76.6 % (45.0-75.0); PLATELET COUNT 190 K/UL (150-450); RED BLOOD COUNT 3.41 M/UL (4.20-5.40); RED CELL DISTRIBUTION WIDTH 13.3 % (11.6-14.8); WHITE BLOOD COUNT 7.8 K/UL (4.8-10.8)
[2018-04-03] MEDS ORDERED: BACLOFEN10 MG ORAL (07:16)
[2018-04-03 07:46] LABS: % IRON SATURATION 12 % (15-50); IRON 18 ug/dL (50-175); TOTAL IRON BINDING CAPACITY 156 ug/dL (250-450)
[2018-04-03] MEDS: Albuterol ud Inhalation HHN SCH ×5 (07:50→23:00)
[2018-04-03 07:53] LABS: ALANINE AMINOTRANSFERASE 26 U/L (12-78); ALBUMIN 2.1 G/DL (3.4-5.0); ALBUMIN/GLOBULIN RATIO 0.5 (1.0-2.7); ALKALINE PHOSPHATASE 85 U/L (46-116); ANION GAP 8 mmol/L (5-15); ASPARTATE AMINO TRANSFERASE 17 U/L (15-37); BLOOD UREA NITROGEN 21 mg/dL (7-18); CALCIUM 8.5 MG/DL (8.5-10.1); CARBON DIOXIDE 26 MMOL/L (21-32); CHLORIDE 112 MMOL/L (98-107); CREATININE 0.8 MG/DL (0.55-1.30); POTASSIUM 3.9 MMOL/L (3.5-5.1); SODIUM 146 MMOL/L (136-145)
[2018-04-03 08:00] VITALS: BP 145/98
--- NOTE | 2018-04-03 08:14 | General Progress Note ---
Assessment/Plan Problem List: (1) CHF (congestive heart failure) ICD Codes: I50.9 - Heart failure, unspecified SNOMED: 15462435 (2) Multiple sclerosis ICD Codes: G35 - Multiple sclerosis SNOMED: 79306932 (3) Abdominal hernia ICD Codes: K46.9 - Unspecified abdominal hernia without obstruction or gangrene SNOMED: 48076032 (4) SBO (small bowel obstruction) ICD Codes: K56.609 - Unspecified intestinal obstruction, unspecified as to partial versus complete obstruction SNOMED: 158794904 (5) ABRAHAN (acute kidney injury) ICD Codes: N17.9 - Acute kidney failure, unspecified SNOMED: 69681008 (6) Asthma ICD Codes: J45.909 - Unspecified asthma, uncomplicated SNOMED: 018502747 (7) Hernia with strangulation ICD Codes: K46.0 - Unspecified abdominal hernia with obstruction, without gangrene SNOMED: 93520695, 209208089 Assessment/Plan surg following, discussed;, postop surg for sbo, abrahan likely prerenal, hydrate , abrahan resolved, try to minimize opiate, mobilize when ok with surgeion, hhn for asthma check cxr Subjective Constitutional: Reports: weakness HEENT: Reports: no symptoms Cardiovascular: Reports: no symptoms Respiratory: Reports: wheezing Gastrointestinal/Abdominal: Reports: abdominal pain Genitourinary: Reports: no symptoms Neurologic/Psychiatric: Reports: no symptoms, pre-existing deficit Endocrine: Reports: no symptoms Hematologic/Lymphatic: Reports: no symptoms Allergies: Coded Allergies: MORPHINE (Verified Allergy, Unknown, 03/28/18) Objective Last 24 Hour Vital Signs Date Time Temp Pulse Resp B/P (MAP) Pulse Ox O2 Delivery O2 Flow Rate FiO2 04/03/18 07:50 96 Nasal Cannula 3.0 32 04/03/18 07:50 Nasal Cannula 3.0 32 04/03/18 07:46 106 20 96 Nasal Cannula 3.0 32 04/03/18 04:00 99.6 107 19 137/103 (114) 92 99.6 04/03/18 00:00 99.7 115 19 132/90 (104) 92 99.7 04/02/18 21:00 Nasal Cannula 3.0 04/02/18 20:58 99.7 04/02/18 20:28 101.4 04/02/18 20:00 101.4 112 21 129/82 (98) 95 101.4 04/02/18 19:53 113 20 98 Venturi Mask 10.0 40 04/02/18 19:43 109 20 95 Venturi Mask 10.0 40 04/02/18 19:39 Venturi Mask 10.0 40 04/02/18 19:39 95 Venturi Mask 10.0 40 04/02/18 17:19 97.9 04/02/18 16:00 97.9 106 21 131/88 (102) 97 97.9 04/02/18 14:05 99.1 04/02/18 14:00 99.1 106 20 112/70 (84) 98 99.1 04/02/18 13:46 112 23 99 Venturi Mask 10.0 40 04/02/18 13:33 111 23 94 Venturi Mask 10.0 40 04/02/18 13:00 115 24 142/77 (98) 91 04/02/18 12:00 115 04/02/18 12:00 114 26 127/100 (109) 93 04/02/18 11:00 109 23 89/74 (79) 93 04/02/18 10:00 107 21 108/64 (79) 93 04/02/18 09:48 98.7 04/02/18 09:00 Nasal Cannula 4.0 04/02/18 09:00 111 20 116/69 (85) 98 Intake and Output 04/02/18 04/03/18 19:00 07:00 Intake Total 327.5 ml 567.5 ml Output Total 510 ml 1220 ml Balance -182.5 ml -652.5 ml Intake IV Total 327.5 ml 567.5 ml Output Urine Total 490 ml 1200 ml Drainage Total 20 ml 20 ml Laboratory Tests 04/03/18 05:45: White Blood Count 7.8, Red Blood Count 3.41L, Hemoglobin 9.9L, Hematocrit 29.7L , Mean Corpuscular Volume 87, Mean Corpuscular Hemoglobin 29.1, Mean Corpuscular Hemoglobin Concent 33.4, Red Cell Distribution Width 13.3, Platelet Count 190, Mean Platelet Volume 8.6, Neutrophils (%) (Auto) 76.6H, Lymphocytes ( %) (Auto) 9.8L, Monocytes (%) (Auto) 7.9, Eosinophils (%) (Auto) 4.2H, Basophils (%) (Auto) 1.4, Sodium Level [Pending], Potassium Level [Pending], Chloride Level [Pending], Carbon Dioxide Level [Pending], Blood Urea Nitrogen [ Pending], Creatinine [Pending], Estimat Glomerular Filtration Rate [Pending], Glucose Level [Pending], Calcium Level [Pending], Iron Level 18L, Total Iron Binding Capacity 156L, Percent Iron Saturation 12L, Unsaturated Iron Binding 138 , Ferritin [Pending], Total Bilirubin [Pending], Aspartate Amino Transf (AST/ SGOT) [Pending], Alanine Aminotransferase (ALT/SGPT) [Pending], Alkaline Phosphatase [Pending], Total Protein [Pending], Albumin [Pending], Globulin [ Pending] Height (Feet): 5 Height (Inches): 6.00 Weight (Pounds): 220 General Appearance: morbidly obese EENT: normal ENT inspection Neck: normal alignment Cardiovascular: normal rate Respiratory/Chest: expiratory wheezing Abdomen: distended Extremities: other - no edema ROZINA MOLINA Apr 03, 2018 08:14
[2018-04-03] MEDS: Pantoprazole Inj IVP SCH (08:15)
[2018-04-03] MEDS: Heparin 5000 units/ml inj SUBQ SCH ×3 (08:18→22:19)
[2018-04-03 08:52] LABS: FERRITIN 278 NG/ML (8-388)
[2018-04-03] MEDS ORDERED: Hydromorphone 0.5mg/0.5ml inj IVP PRN (11:30)
[2018-04-03] MEDS ORDERED: HYDROmorphone 1mg/ml Carpuject IVP PRN ×2 (11:30→11:45)
--- NOTE | 2018-04-03 11:37 | General Progress Note ---
Progress Note Progress Note Surgery: febrile, tachy. asking for pain meds at all times. no flatus or BM yet difficult to tell if patient improving or not. she asks for pain meds and is complaining of pain all day but when having a conversation she his without pain and comfortable. does seem to have psychological component to this. she has anxiety. she states she wants to improve but does not participate in care. she needs to be much more active and out of bed. she is given clear instructions on how to use incentive spirometry but does not. cont NPO IV fluids IV Abx await return of bowel function cut back on narcotis incentive spirometry out of bed and ambulatory Fernando Quinonez Apr 03, 2018 11:37
[2018-04-03 12:00] VITALS: BP 149/92
--- NOTE | 2018-04-03 12:10 | Diagnostic Imaging Report ---
Indication: Cough Comparison: 03/29/2018 A single view chest radiograph was obtained. Findings: Mild pulmonary gastric congestion suspected although lung volumes are quite low. Heart is enlarged. The bones are unremarkable. IMPRESSION: Limited study due to low lung volumes. Consider mild interstitial edema/CHF.
[2018-04-03 16:00] VITALS: BP 155/103
[2018-04-03 20:00] VITALS: BP 135/97
[2018-04-03] MEDS: Hydromorphone 0.5mg/0.5ml inj IVP PRN (20:53)
[2018-04-03] MEDS ORDERED: NS 275ml ONE (21:46)
[2018-04-03] MEDS ORDERED: Tubing IV Secondary IV ONE (21:46)
[2018-04-04] VITALS: BP 143/100
[2018-04-04] MEDS ORDERED: Piperacillin/Tazobactam 3.375 GM in D5W 110 ML IVPB SCH (01:00)
[2018-04-04] MEDS: Piperacillin/Tazobactam 3.375 GM in D5W 110 ML IVPB SCH ×3 (01:05→16:12)
[2018-04-04] MEDS: Hydromorphone 0.5mg/0.5ml inj IVP PRN ×4 (01:06→16:08)
[2018-04-04] MEDS: Albuterol ud Inhalation HHN SCH ×6 (03:23→23:20)
[2018-04-04 04:00] VITALS: BP 142/89
[2018-04-04] MEDS: Heparin 5000 units/ml inj SUBQ SCH ×3 (06:08→22:30)
[2018-04-04 08:00] VITALS: BP 140/96
[2018-04-04] MEDS ORDERED: Pantoprazole Inj IVP SCH (09:00)
[2018-04-04 12:00] VITALS: BP 146/104
[2018-04-04 15:42] VITALS: BP 146/107
--- NOTE | 2018-04-04 16:45 | General Progress Note ---
Progress Note Progress Note Surgery: no acute events. doing well. no n/v/f/c. had BM multiple times. ambulatory. incentive spirometry abd soft, distended, incision c/d/i, drain output serous -start clear lears -transition to oral meds -decrease iv fluids -abx day 4 of 5 -drain care -ambulate and out of bed -Incentive spirometry -d/c planning for friday Fernando Quinonez Apr 04, 2018 16:45
[2018-04-04] MEDS: Norco 5mg/325mg tab ORAL PRN (19:54)
[2018-04-04 20:00] VITALS: BP 131/88
[2018-04-05] VITALS: BP 126/82
[2018-04-05] MEDS: Piperacillin/Tazobactam 3.375 GM in D5W 110 ML IVPB SCH ×2 (01:50→09:04)
[2018-04-05] MEDS: Norco 5mg/325mg tab ORAL PRN ×3 (02:45→19:39)
[2018-04-05] MEDS: Albuterol ud Inhalation HHN SCH ×6 (03:29→22:48)
[2018-04-05 04:00] VITALS: BP 113/85
[2018-04-05] MEDS: Heparin 5000 units/ml inj SUBQ SCH ×3 (05:50→21:39)
[2018-04-05 08:00] VITALS: BP 140/104
[2018-04-05 08:38] LABS: EOSINOPHILS % (AUTO) 6.6 % (0.0-3.0); HEMATOCRIT 33.7 % (37.0-47.0); HEMOGLOBIN 10.9 G/DL (12.0-16.0); LYMPHOCYTES % (AUTO) 17.7 % (20.0-45.0); MEAN CORPUSCULAR VOLUME 85 FL (80-99); NEUTROPHILS % (AUTO) 64.8 % (45.0-75.0); PLATELET COUNT 230 K/UL (150-450); RED BLOOD COUNT 3.97 M/UL (4.20-5.40); WHITE BLOOD COUNT 7.7 K/UL (4.8-10.8)
[2018-04-05 08:55] LABS: ANION GAP 11 mmol/L (5-15); BLOOD UREA NITROGEN 9 mg/dL (7-18); CALCIUM 8.6 MG/DL (8.5-10.1); CARBON DIOXIDE 24 MMOL/L (21-32); CHLORIDE 105 MMOL/L (98-107); CREATININE 0.7 MG/DL (0.55-1.30); POTASSIUM 3.1 MMOL/L (3.5-5.1); SODIUM 140 MMOL/L (136-145)
--- NOTE | 2018-04-05 10:53 | General Progress Note ---
Assessment/Plan Assessment/Plan 1) iNCARCERATED VENTRAL HERNIA, S/P REPAIR 2) ABRAHAN RECOVERED 3) MS Plan: Replete K Advance diet Hope D/C tomorrow Subjective Allergies: Coded Allergies: MORPHINE (Verified Allergy, Unknown, 03/28/18) Subjective sHE IS DOING OK, NO C/P OR SOB, HAD bm, HAVING CLEAR LIQUID DIET Objective Last 24 Hour Vital Signs Date Time Temp Pulse Resp B/P (MAP) Pulse Ox O2 Delivery O2 Flow Rate FiO2 04/05/18 08:17 120 20 99 Room Air 04/05/18 08:10 Room Air 04/05/18 08:10 95 Room Air 21 04/05/18 08:07 82 18 95 Room Air 21 04/05/18 04:00 98.6 92 20 113/85 (94) 94 98.6 04/05/18 03:33 108 20 98 Room Air 04/05/18 03:30 98 20 96 Room Air 04/05/18 00:00 98.1 85 20 126/82 (97) 94 98.1 04/04/18 23:31 109 20 96 Room Air 04/04/18 23:20 109 20 94 Room Air 21 04/04/18 21:00 Nasal Cannula 3.0 04/04/18 20:00 98.0 114 20 131/88 (102) 94 98.0 04/04/18 19:33 105 20 95 Room Air 04/04/18 19:21 105 20 91 Room Air 21 04/04/18 19:21 Room Air 21 04/04/18 19:17 92 Room Air 21 04/04/18 15:42 97.4 112 21 146/107 (120) 97 97.4 04/04/18 15:41 113 20 98 Room Air 04/04/18 15:33 108 20 96 Room Air 21 04/04/18 12:00 98.9 114 19 146/104 (118) 92 98.9 04/04/18 11:22 102 20 97 Room Air 04/04/18 11:14 94 20 98 Room Air 21 Intake and Output 04/04/18 04/05/18 19:00 07:00 Intake Total 832.5 ml 187.5 ml Output Total 40 ml 20 ml Balance 792.5 ml 167.5 ml Intake Oral 240 ml IV Total 592.5 ml 187.5 ml Drainage Total 40 ml 20 ml # Voids 3 2 Laboratory Tests 04/05/18 08:15: White Blood Count 7.7, Red Blood Count 3.97L, Hemoglobin 10.9L, Hematocrit 33.7L , Mean Corpuscular Volume 85, Mean Corpuscular Hemoglobin 27.5, Mean Corpuscular Hemoglobin Concent 32.4, Red Cell Distribution Width 13.0, Platelet Count 230, Mean Platelet Volume 8.0, Neutrophils (%) (Auto) 64.8, Lymphocytes (% ) (Auto) 17.7L, Monocytes (%) (Auto) 10.0, Eosinophils (%) (Auto) 6.6H, Basophils (%) (Auto) 1.0, Sodium Level 140, Potassium Level 3.1L, Chloride Level 105, Carbon Dioxide Level 24, Anion Gap 11, Blood Urea Nitrogen 9, Creatinine 0.7, Estimat Glomerular Filtration Rate > 60, Glucose Level 112H, Calcium Level 8.6 Height (Feet): 5 Height (Inches): 6.00 Weight (Pounds): 220 General Appearance: WD/WN, no apparent distress EENT: PERRL/EOMI Neck: non-tender, normal alignment Cardiovascular: normal rate, regular rhythm, no JVD Respiratory/Chest: lungs clear Abdomen: normal bowel sounds, non tender Extremities: non-tender Edema: trace edema Neurologic: city councilman II-XII grossly normal Dylon Lovelace MD Apr 05, 2018 10:53
[2018-04-05 12:00] VITALS: BP 143/103
[2018-04-05 15:50] VITALS: BP 131/92
[2018-04-05 20:00] VITALS: BP 127/87
[2018-04-06] VITALS: BP 115/81
[2018-04-06] MEDS: Albuterol ud Inhalation HHN SCH ×3 (02:32→11:00)
[2018-04-06 04:00] VITALS: BP 110/73
[2018-04-06] MEDS: Heparin 5000 units/ml inj SUBQ SCH (06:09)
[2018-04-06 08:00] VITALS: BP 145/113
--- NOTE | 2018-04-06 10:21 | General Progress Note ---
Assessment/Plan Assessment/Plan 1) iNCARCERATED VENTRAL HERNIA, S/P REPAIR 2) ABRAHAN RECOVERED 3) MS Plan: D/C home today F/U with surgeon in one week Subjective Allergies: Coded Allergies: MORPHINE (Verified Allergy, Unknown, 03/28/18) Subjective She is tolerating solid food, no c/p or sob Objective Last 24 Hour Vital Signs Date Time Temp Pulse Resp B/P (MAP) Pulse Ox O2 Delivery O2 Flow Rate FiO2 04/06/18 07:42 101 20 98 Room Air 04/06/18 07:32 100 20 96 Room Air 21 04/06/18 07:32 Room Air 21 04/06/18 07:32 96 Room Air 21 04/06/18 04:00 97.9 101 19 110/73 (85) 94 97.9 04/06/18 02:33 98 22 100 Room Air 04/06/18 02:30 97 18 100 Room Air 04/06/18 00:00 98.3 99 20 115/81 (92) 93 98.3 04/05/18 22:47 111 20 100 Room Air 04/05/18 22:40 107 22 97 Room Air 21 04/05/18 21:00 Nasal Cannula 3.0 04/05/18 20:00 98.5 98 21 127/87 (100) 94 98.5 04/05/18 19:04 97 Room Air 21 04/05/18 19:04 Room Air 04/05/18 19:03 87 24 Room Air 21 04/05/18 19:03 85 22 99 Room Air 04/05/18 18:55 88 24 97 Room Air 04/05/18 15:50 99.3 101 20 131/92 (105) 97 99.3 04/05/18 15:37 92 20 99 Room Air 04/05/18 15:30 Room Air 04/05/18 15:25 86 20 96 Room Air 04/05/18 14:21 97.0 04/05/18 13:22 97.0 04/05/18 12:00 102 20 100 Room Air 04/05/18 12:00 97.0 114 20 143/103 (116) 97 97.0 04/05/18 11:50 97 20 94 Room Air 21 Intake and Output 04/05/18 04/06/18 19:00 07:00 Intake Total 1167.5 ml 480 ml Output Total 20 ml Balance 1147.5 ml 480 ml Intake Oral 840 ml 480 ml IV Total 327.5 ml Drainage Total 20 ml # Voids 4 3 Height (Feet): 5 Height (Inches): 6.00 Weight (Pounds): 220 General Appearance: WD/WN, no apparent distress EENT: PERRL/EOMI, normal ENT inspection Neck: non-tender, normal alignment Cardiovascular: normal rate, regular rhythm Respiratory/Chest: lungs clear Abdomen: normal bowel sounds, non tender Extremities: normal range of motion Edema: trace edema Neurologic: tie layer II-XII grossly normal Dylon Lovelace MD Apr 06, 2018 10:21
--- NOTE | 2018-04-06 10:27 | General Progress Note ---
Progress Note Progress Note Surgery: doing great. minimal pain. no n/v/f/c. tolerating diet. having normal BM's. abd soft, nd/nd, obese, wound c/d/i. drain with serous output. shayan in place labs okay. vitals improved -d/c home today -Rx written -will go home with drain and shayan. plan to removed next fri04/15/2018. appointment in my office at 10:00am. all info given to patient okay to shower. diet as tolerated lite activity Fernando Quinonez Apr 06, 2018 10:27
[2018-04-06] MEDS ORDERED: NORCO 5-325 TA1 EACH ORAL (10:29)
[2018-04-06] MEDS ORDERED: IBUPROFEN600 MG ORAL (10:29)
[2018-04-06] MEDS ORDERED: COLACE100 MG ORAL (10:29)
--- NOTE | 2018-04-06 10:31 | Discharge Instructions ---
Discharge Instructions Discharge Instructions Follow up with: Dr. Qiunonez on 04/15/2018 at 10:00am. Call Dr. Moore office for follow up Diet: low fat Resume Normal Activity?: Yes Activity: resume normal activities, light activity, as tolerated, okay to shower For Surgical Patients May shower: Yes Contact your physician for: bleeding, pain, tenderness, redness, swelling, yellowish discharge in the op. site For Congestive Heart Failure Reminder Report to your physician any weight gain of 5 pounds or more in one week. Fernando Quinonez Apr 06, 2018 10:30
[2018-04-06] MEDS: Norco 5mg/325mg tab ORAL PRN (12:02)
--- NOTE | 2018-04-08 07:30 | Discharge Summary ---
DATE OF ADMISSION: 03/28/2018 DATE OF DISCHARGE: 04/06/2018 PERTINENT HISTORY: The patient is a 43-year-old lady, presenting with abdominal pain and incarcerated ventral hernia. There is a history of multiple sclerosis, questionable CHF, and asthma. PERTINENT PHYSICAL FINDINGS: GENERAL: In the emergency room, she was agitated and crying. LUNGS: Clear. HEART: Regular rhythm. ABDOMEN: Obese and soft. There is a large midline ventral hernia that is protruding, and I saw together with Dr. Quinonez who was trying to reduce the hernia in the emergency room. COURSE IN THE HOSPITAL: The patient was observed, given analgesics and comfort measures. However, later she developed small bowel obstruction and required surgery by Dr. Quinonez on 03/31/2018 who did exploratory laparotomy, small bowel resection, repair of incisional ventral hernia, and omentectomy. Postoperatively, she required pain management, NPO, was in the ICU for several days and subsequently was transferred to the floor. Her pain improved, and she was seen in surgical followup and was deemed stable for discharge. She is discharged home in improved condition. FINAL DIAGNOSES: 1. Incarcerated ventral hernia. 2. Small bowel obstruction. 3. Multiple sclerosis. 4. Questionable history of CHF. DISCHARGE DISPOSITION: Home. DIET: Per Dr. Quinonez's orders. MEDICATIONS: Per Dr. Quinonez's orders. FOLLOWUP: Follow up by Dr. Quinonez and Dr. Moore. Loyd Moore M.D. DR: VINNIE JOB#: [id number] CC:
== END 2018-04-06 12:20 | disposition home or self-care (01) | DRG 330 ==
LOC: EDBD 10:18 → EMR 10:49 → 4E 12:17 → EDBEDREQ 13:13 → ICU 03-31 17:32 → 4E 04-02 15:38
DX: K43.6 Other and unspecified ventral hernia with obstruction, without gangrene (principal); N17.9 Acute kidney failure, unspecified; G35 Multiple sclerosis; K43.7 Other and unspecified ventral hernia with gangrene; I50.9 Heart failure, unspecified; F41.9 Anxiety disorder, unspecified; J45.909 Unspecified asthma, uncomplicated
CPT/HCPCS: 36415; 36600; 71045; 74018; 74176; 74250; 76700; 80048; 80053; 81001; 81003; 81025; 82150; 82570; 82728; 82803; 83540; 83550; 83605; 83690; 84300; 85007; 85025; 85610; 85651; 85730; 86140; 93005; 93306; 94003; 94150; 94640; 94664; 94760; 99285; J2405; J2710; J2765; J8499

== ENCOUNTER 2019-01-19 11:54 | Emergency (ER) | payer MEDICARE, OTHER ==
[~2019-01-19] VITALS: Ht 160 cm; Wt 104.3 kg
[~2019-01-19 11:54] MED LIST changes: +BACLOFEN10 MG ORAL; +BACLOFEN5 GM MC; +COLACE100 MG ORAL; +COREG3.125 MG ORAL; +IBUPROFEN600 MG ORAL; +LISINOPRIL5 MG ORAL; +NORCO 5-325 TA1 EACH ORAL
[2019-01-19 12:30] VITALS: BP 112/61
--- NOTE | 2019-01-19 12:41 | Emergency Room Report ---
History of Present Illness General Chief Complaint: General Complaint Source: Patient Present Illness HPI 44-year-old female with no significant past medical history here complaining of 5 days of sore throat and productive cough. Patient denies fever and chills, rhinorrhea and congestion. Denies shortness of breath and wheezing. Has not taken any medication for her symptoms. Patient also requesting repacking of it drained wound on abdomen. Patient reports that she had an abscess removed with 8 months ago and continues with the repacking with her specialist. She tried to go to her specialist today however did not have any appointment and was told to come to the emergency room for repacking. Patient denies any pus drainage from the site rating the pain around the wound 5 out of 10 without radiation. Denies abdominal pain, nausea vomiting, chest pain, shortness of breath, palpitation and all other associated symptoms. Allergies: Coded Allergies: No Known Allergies (Unverified , 01/19/19) Patient History Past Medical History: see triage record Past Surgical History: unable to obtain Pertinent Family History: none Now: No Immunizations: UTD Reviewed Nursing Documentation: PMH: Agreed; PSxH: Agreed Nursing Documentation-PMH Past Medical History: No History, Except For Hx Cardiac Problems: Yes - CHF Hx Hypertension: Yes Hx Asthma: Yes Hx Neurological Problems: No Review of Systems All Other Systems: negative except mentioned in HPI Physical Exam Vital Signs Date Time Temp Pulse Resp B/P (MAP) Pulse Ox O2 Delivery O2 Flow Rate FiO2 01/19/19 11:59 99.5 127 16 109/62 (78) 95 Room Air Sp02 EP Interpretation: reviewed, normal General Appearance: normal inspection, well appearing, no apparent distress Head: normocephalic, atraumatic Eyes: bilateral eye normal inspection, bilateral eye PERRL ENT: TMs + canals normal, uvula midline, moist mucus membranes, pharyngeal erythema Neck: normal inspection, full range of motion, supple, thyroid normal Respiratory: chest non-tender, lungs clear, no rhonchi, no wheezing Cardiovascular #1: normal inspection, regular rate, rhythm, no edema, no murmur , normal capillary refill Gastrointestinal: soft, other - Drained abscess periumbilical with no pus drainage Rectal: deferred Genitourinary: no CVA tenderness Musculoskeletal: normal inspection, back normal, digits/nails normal Neurologic: normal inspection, alert, oriented x3, responsive Psychiatric: normal inspection, judgement/insight normal, memory normal Skin: warm/dry, palpation normal, well hydrated, other - Drained abscess periumbilical without pus drainage mild erythema noted Lymphatic: normal inspection, no adenopathy Procedures Additional Procedure Procedure Narrative I&D packing Medical Decision Making PA Attestation All my diagnosis and treatment plans were reviewed ad discussed with my supervising physician Dr. Bennett Diagnostic Impression: Primary Impression: Pharyngitis Additional Impression: Wound check, abscess ER Course 44-year-old female with no significant past medical history here complaining of 5 days of sore throat and productive cough. Patient denies fever and chills, rhinorrhea and congestion. Denies shortness of breath and wheezing. Has not taken any medication for her symptoms. Patient also requesting repacking of it drained wound on abdomen. Patient reports that she had an abscess removed with 8 months ago and continues with the repacking with her specialist. She tried to go to her specialist today however did not have any appointment and was told to come to the emergency room for repacking. Patient denies any pus drainage from the site rating the pain around the wound 5 out of 10 without radiation. Denies abdominal pain, nausea vomiting, chest pain, shortness of breath, palpitation and all other associated symptoms. Ddx considered but are not limited to: strep pharyngitis, URI, tonsilitis, peritonsillar absacess, influneza, infected drain abscess, noninfected wound Vital signs: are WNL, pt. is afebrile H&PE are most consistent with: Noninfected abdominal wound, pharyngitis ORDERS: Augmentin, Phenergan ED INTERVENTIONS: I&D packing was done DISCHARGE: At this time pt. is stable for d/c to home. Will provide printed patient care instructions, and any necessary prescriptions. Care plan and follow up instructions have been discussed with the patient prior to discharge. Patient to follow-up with a primary care provider and specialist in regards to the wound as it is not normal to have minimal healing after almost a year post drainage she is hemodynamically stable at time of discharge and no further imaging or testing needed Last Vital Signs Date Time Temp Pulse Resp B/P (MAP) Pulse Ox O2 Delivery O2 Flow Rate FiO2 01/19/19 11:59 99.5 127 16 109/62 (78) 95 Room Air Disposition: HOME, SELF-CARE Condition: Stable Scripts Promethazine Hcl (PROMETHAZINE HCL*) 6.25 Mg/5 Ml Syrup 5 ML ORAL Q6H, #120 ML 0 Refills Prov: Doug Rodrigez 01/19/19 Amoxicillin/Potassium Clav 875-125* (AUGMENTIN 875-125 TABLET*) 1 Each Tablet 1 TAB ORAL TWICE A DAY for 10 Days, #20 TAB Prov: Doug Rodrigez 01/19/19 Patient Instructions: Pharyngitis, [id number], Wound Check Additional Instructions: Follow-up with your surgeon regarding wound packing and drainage as it has been almost a year post your surgery Doug Rodrigez Jan 19, 2019 12:41
[2019-01-19] MEDS ORDERED: AUGMENTIN 875-1 EAC1 ORAL (12:42)
[2019-01-19] MEDS ORDERED: PROMETHAZI6.25 MG/1 ORAL (12:42)
[2019-01-19 12:49] VITALS: BP 111/71
== END 2019-01-19 12:52 | disposition home or self-care (01) ==
LOC: EMR 12:45
DX: J02.9 Acute pharyngitis, unspecified (principal); L02.216 Cutaneous abscess of umbilicus; I11.0 Hypertensive heart disease with heart failure; I50.9 Heart failure, unspecified
CPT/HCPCS: 99283

== ENCOUNTER 2019-01-20 10:50 | Inpatient (IN) | payer MEDICARE, OTHER ==
[~2019-01-20] VITALS: Ht 160 cm; Wt 97.5 kg
[~2019-01-20 10:50] MED LIST changes: +AUGMENTIN 875-1 EAC1 ORAL; +PROMETHAZI6.25 MG/1 ORAL
[2019-01-20] MEDS ORDERED: Metoclopramide 10mg/2ml Inj IVP ONE (11:00)
[2019-01-20] MEDS ORDERED: DiphenhydrAMINE 50mg/ml Inj IVP ONE (11:00)
[2019-01-20] MEDS ORDERED: Isovue-300 100ml vial INJ PRN (11:15)
[2019-01-20 11:27] VITALS: BP 120/72
[2019-01-20 11:34] LABS: APPEARANCE,URINE CLEAR; BILIRUBIN, URINE NEGATIVE (NEGATIVE); COLOR,URINE PALE YELLOW; GLUCOSE, URINE (UA) NEGATIVE (NEGATIVE); KETONES,URINE NEGATIVE (NEGATIVE); LEUKOCYTE ESTERASE ,URINE 1+ (NEGATIVE); NITRITE,URINE NEGATIVE (NEGATIVE); PH,URINE 6.5 (4.5-8.0); PROTEIN,URINE NEGATIVE (NEGATIVE); UROBILINOGEN,URINE NORMAL MG/DL (0.0-1.0)
[2019-01-20 11:35] LABS: BASOPHILS % (AUTO) 0.8 % (0.0-2.0); EOSINOPHILS % (AUTO) 7.4 % (0.0-3.0); HEMOGLOBIN 11.6 G/DL (12.0-16.0); LYMPHOCYTES % (AUTO) 21.3 % (20.0-45.0); MEAN CORPUSCULAR VOLUME 86 FL (80-99); MONOCYTES % (AUTO) 11.5 % (1.0-10.0); NEUTROPHILS % (AUTO) 59.1 % (45.0-75.0); PLATELET COUNT 251 K/UL (150-450); RED BLOOD COUNT 4.06 M/UL (4.20-5.40); WHITE BLOOD COUNT 6.8 K/UL (4.8-10.8)
--- NOTE | 2019-01-20 11:41 | NUR ---
ED Nurse Note: pt walked in c/o lower abd pain due to a wound that has been there since last year on and off. sl established blood and urine sent ermd eval done pt medicated will monitor.
[2019-01-20 11:44] LABS: ALANINE AMINOTRANSFERASE 58 U/L (12-78); ALBUMIN 3.4 G/DL (3.4-5.0); ALBUMIN/GLOBULIN RATIO 0.7 (1.0-2.7); ALKALINE PHOSPHATASE 152 U/L (46-116); ANION GAP 11 mmol/L (5-15); ASPARTATE AMINO TRANSFERASE 39 U/L (15-37); BILIRUBIN,TOTAL 0.4 MG/DL (0.2-1.0); BLOOD UREA NITROGEN 16 mg/dL (7-18); CALCIUM 8.9 MG/DL (8.5-10.1); CARBON DIOXIDE 30 MMOL/L (21-32); CHLORIDE 96 MMOL/L (98-107); SODIUM 136 MMOL/L (136-145)
[2019-01-20 11:47] LABS: POTASSIUM 2.6 MMOL/L (3.5-5.1)
--- NOTE | 2019-01-20 11:54 | NUR ---
ED Nurse Note: lab called troponin 0.058 and K level2.8 ermd informed. no nsg orders yet.
[2019-01-20 11:57] LABS: CKMB < 0.5 NG/ML (0.0-3.6); CREATINE KINASE 90 U/L (26-308)
--- NOTE | 2019-01-20 12:10 | Diagnostic Imaging Report ---
Indication: Shortness of breath Technique: One view of the chest Comparison: 04/03/2018 Findings: Inspiration is suboptimal. Body habitus limits evaluation. Heart is enlarged. There is right greater than left interstitial and airspace edema. Extent of this is greater than on the prior study. Impression: Cardiomegaly Right greater than left interstitial and airspace edema
[2019-01-20 13:26] VITALS: BP 131/118
--- NOTE | 2019-01-20 13:39 | NUR ---
ED Nurse Note: meds well tolerated no reactions noted . belongings list done awaiting tele bed.
--- NOTE | 2019-01-20 14:19 | Emergency Room Report ---
History of Present Illness General Chief Complaint: Wound Recheck/Suture Removal Source: Patient Present Illness HPI Patient has had a complex history with previous bowel obstruction and perforation wound dehiscence and extensive follow-up Over the past several days patient has had increased cough and congestion Questionable low-grade fever and increased discharge from her site Patient was seen yesterday attempted outpatient follow-up however contacted her primary physician as she was not feeling well and presents back to the emergency room There is no reports of any recent trauma patient reports increased discomfort in the abdominal area with cough Allergies: Coded Allergies: No Known Allergies (Unverified , 01/19/19) Patient History Past Medical History: see triage record Pertinent Family History: none Reviewed Nursing Documentation: PMH: Agreed; PSxH: Agreed Nursing Documentation-PMH Hx Cardiac Problems: Yes - CHF Hx Hypertension: Yes Hx Asthma: Yes Hx Neurological Problems: No Review of Systems All Other Systems: negative except mentioned in HPI Physical Exam Vital Signs Date Time Temp Pulse Resp B/P (MAP) Pulse Ox O2 Delivery O2 Flow Rate FiO2 01/20/19 10:53 98.4 124 20 108/90 (96) 98 Room Air Sp02 EP Interpretation: reviewed, normal General Appearance: mild distress - Mildly uncomfortable Head: normocephalic, atraumatic Eyes: bilateral eye PERRL, bilateral eye EOMI ENT: hearing grossly normal, TMs + canals normal, uvula midline, dry mucus membranes Neck: full range of motion, supple, no meningismus, no bony tend Respiratory: no respiratory distress, no retraction, no accessory muscle use, crackles - bilaterally Cardiovascular #1: normal peripheral pulses, regular rate, rhythm, no gallop, no JVD, no murmur Gastrointestinal: normal bowel sounds, non-distended, no pulsatile mass, no rebound, other - Open wound with packing at the mid abdominal area, no obvious fluctuance or erythema Genitourinary: no CVA tenderness Musculoskeletal: normal inspection Neurologic: oriented x3, responsive, 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, motor strength/ tone normal, sensory intact Psychiatric: mood/affect normal Skin: other - Some edema is noted bilaterally Lymphatic: normal inspection, no adenopathy Medical Decision Making Diagnostic Impression: Primary Impression: CHF (congestive heart failure) Additional Impressions: Abdominal pain Open abdominal wall wound ER Course Multiple differentials and consideration including but not limited to infectious , GI pathology She will such as cardiac also considered Patient's x-ray does show some congestion CT imaging is also obtained with oral contrast patient's specialty surgery consultation In progress and admitted for further care Labs Test 01/20/19 11:10 01/20/19 12:15 White Blood Count 6.8 K/UL (4.8-10.8) Red Blood Count 4.06 M/UL (4.20-5.40) Hemoglobin 11.6 G/DL (12.0-16.0) Hematocrit 35.0 % (37.0-47.0) Mean Corpuscular Volume 86 FL (80-99) Mean Corpuscular Hemoglobin 28.6 PG (27.0-31.0) Mean Corpuscular Hemoglobin Concent 33.1 G/DL (32.0-36.0) Red Cell Distribution Width 14.0 % (11.6-14.8) Platelet Count 251 K/UL (150-450) Mean Platelet Volume 7.3 FL (6.5-10.1) Neutrophils (%) (Auto) 59.1 % (45.0-75.0) Lymphocytes (%) (Auto) 21.3 % (20.0-45.0) Monocytes (%) (Auto) 11.5 % (1.0-10.0) Eosinophils (%) (Auto) 7.4 % (0.0-3.0) Basophils (%) (Auto) 0.8 % (0.0-2.0) Urine Color Pale yellow Urine Appearance Clear Urine pH 6.5 (4.5-8.0) Urine Specific [place] 1.010 (1.005-1.035) Urine Protein Negative (NEGATIVE) Urine Glucose (UA) Negative (NEGATIVE) Urine Ketones Negative (NEGATIVE) Urine Blood 1+ (NEGATIVE) Urine Nitrite Negative (NEGATIVE) Urine Bilirubin Negative (NEGATIVE) Urine Urobilinogen Normal MG/DL (0.0-1.0) Urine Leukocyte Esterase 1+ (NEGATIVE) Urine RBC 0-2 /HPF (0 - 2) Urine WBC 0-2 /HPF (0 - 2) Urine Squamous Epithelial Cells Occasional /LPF Urine Bacteria Occasional /HPF (NONE) Sodium Level 136 MMOL/L (136-145) Potassium Level 2.6 MMOL/L (3.5-5.1) Chloride Level 96 MMOL/L (98-107) Carbon Dioxide Level 30 MMOL/L (21-32) Anion Gap 11 mmol/L (5-15) Blood Urea Nitrogen 16 mg/dL (7-18) Creatinine 1.0 MG/DL (0.55-1.30) Estimat Glomerular Filtration Rate > 60 mL/min (>60) Glucose Level 115 MG/DL (74-106) Calcium Level 8.9 MG/DL (8.5-10.1) Total Bilirubin 0.4 MG/DL (0.2-1.0) Aspartate Amino Transf (AST/SGOT) 39 U/L (15-37) Alanine Aminotransferase (ALT/SGPT) 58 U/L (12-78) Alkaline Phosphatase 152 U/L (46-116) Total Creatine Kinase 90 U/L (26-308) Creatine Kinase MB < 0.5 NG/ML (0.0-3.6) Creatine Kinase MB Relative Index Troponin I 0.058 ng/mL (0.000-0.056) Pro-B-Type Natriuretic Peptide 79 pg/mL (0-125) Total Protein 8.1 G/DL (6.4-8.2) Albumin 3.4 G/DL (3.4-5.0) Globulin 4.7 g/dL Albumin/Globulin Ratio 0.7 (1.0-2.7) Lipase 85 U/L (73-393) Lactic Acid Level 1.20 mmol/L (0.4-2.0) Rhythm Strip Diag. Results EP Interpretation: yes Rate: 60 Rhythm: NSR, no PVC's, no ectopy Chest X-Ray Diagnostic Results Chest X-Ray Diagnostic Results : Chest X-Ray Ordered: Yes # of Views/Limited/Complete: 1 View Indication: Chest Pain EP Interpretation: Yes Interpretation: no pneumothorax, other - Cardiomegaly, pulmonary congestion Impression: Other - Cardiomegaly, CHF Electronically Signed by: Jf Sprague, DO CT/MRI/US Diagnostic Results CT/MRI/US Diagnostic Results : Impression CT abdomen pelvisImpression: Since 03/23/2018, evidence of interim surgery for previously demonstrated obstructive ventral hernia. Previously demonstrated small bowel obstruction has resolved. However, there is a persistent broad-based defect into which herniates the mid transverse colon. There is no evidence of obstruction or strangulation related to this. There is evidence of an open wound defect at the umbilicus. No associated pathologic fluid collection or other complication demonstrated. Right lower quadrant lymphadenopathy, nonspecific as regards etiology Cholelithiasis Stool-filled colon. Correlate with any history of constipation Nonobstructive left lower pole intrarenal calyceal calculus, also previously demonstrated. Decreased or resolved pericardial effusion, since prior study Other findings as noted, including basilar pulmonary atelectatic changes, degenerative spondylosis, evidence of prior hysterectomy Last Vital Signs Date Time Temp Pulse Resp B/P (MAP) Pulse Ox O2 Delivery O2 Flow Rate FiO2 01/20/19 13:26 98.4 100 26 131/118 100 Room Air Status: improved Disposition: ADMITTED INPATIENT Condition: Serious Referrals: NOT CHOSEN IPA/,REFERRING (PCP) Jf Sprague DO Jan 20, 2019 14:19
--- NOTE | 2019-01-20 15:14 | NUR ---
ED Nurse Note: pt down in ct still.
--- NOTE | 2019-01-20 15:23 | NUR ---
ED Nurse Note: pt back from ct.
--- NOTE | 2019-01-20 15:52 | NUR ---
ED Nurse Note: CALLED TELE FLOOR TO GIVE ORDERS WAS TOLD RN UNABLE TO COME TO PHONE SHE WILL CALL YOU BACK
[2019-01-20 16:12] VITALS: BP 115/81
--- NOTE | 2019-01-20 16:27 | Diagnostic Imaging Report ---
Clinical Indication: Abdominal pain Technique: Patient given oral contrast. IV administration nonionic contrast. Venous phase spiral acquisition obtained through the abdomen and pelvis. Multiplanar reconstructions were generated. Total dose length product 1400.03 mGycm. CTDIvol(s) 26.25 mGy. Dose reduction achieved using automated exposure control Comparison: Noncontrast study dated 03/31/2018 Findings: Apparent interim surgical repair of previously demonstrated obstructing ventral hernia. Small bowel is no longer seen to herniate into the defect. However, there is a persistent broad-based hernia/diastasis of the rectus abdominis tendon, into which protrudes the mid transverse colon. There is no evidence of obstruction, and contrast is seen throughout the entire small bowel and is far distally as the transverse colon at the proximal aspect of the defect. There is some inflammatory stranding along the course of the incision, and there is a short open incisional defect. No abnormal associated fluid collection demonstrated. The colon is diffusely stool filled. There is a small protrusion of the fascia lateral to the inferior aspect of the rectus abdominis muscle which appears slightly more prominent than on the prior exam. No evidence of diverticulosis or diverticulitis. The appendix is normal. Enlarged nodes are seen in the right lower quadrant mesentery adjacent to the ascending colon. These are larger than on the previous study. No small bowel distention. Distal esophagus, stomach, duodenum are unremarkable. No free or loculated intraperitoneal gas or fluid. The liver is unremarkable. The gallbladder is distended, contains a calcified gallstone. No biliary ductal dilatation. The pancreas, spleen, adrenals are unremarkable. The right kidney demonstrates cortical scarring. The left kidney demonstrates a 3 mm lower pole calyceal calculus, also evident previously. No retroperitoneal or mesenteric mass or adenopathy. No pelvic mass or adenopathy. Uterus is absent, presumably surgically. The included lung bases demonstrate linear atelectatic changes which were not evident previously. Previously demonstrated pericardial effusion has largely resolved, with only minimal residual fluid or thickening anteriorly The bones demonstrate degenerative spondylosis changes. Impression: Since 03/23/2018, evidence of interim surgery for previously demonstrated obstructive ventral hernia. Previously demonstrated small bowel obstruction has resolved. However, there is a persistent broad-based defect into which herniates the mid transverse colon. There is no evidence of obstruction or strangulation related to this. There is evidence of an open wound defect at the umbilicus. No associated pathologic fluid collection or other complication demonstrated. Right lower quadrant lymphadenopathy, nonspecific as regards etiology Cholelithiasis Stool-filled colon. Correlate with any history of constipation Nonobstructive left lower pole intrarenal calyceal calculus, also previously demonstrated. Decreased or resolved pericardial effusion, since prior study Other findings as noted, including basilar pulmonary atelectatic changes, degenerative spondylosis, evidence of prior hysterectomy The CT scanner at [facility] is accredited by the [employer] and the scans are performed using protocols designed to limit radiation exposure to as low as reasonably achievable to attain images of sufficient resolution adequate for diagnostic evaluation.
--- NOTE | 2019-01-20 16:38 | Consultation ---
History of Present Illness General Date patient seen: Jan 20, 2019 Reason for Hospitalization: Wound Recheck/Suture Removal Present Illness HPI This is a very pleasant 44-year-old female well-known to me from prior surgical history and admission. Proximally over a year ago patient presented with an incarcerated ventral hernia requiring repair. She had developed an open midline wound had been monitored by myself and cared for by outpatient wound care center near her home in [place]. She had recently healed the wound and been doing well but developed a seroma which opened and required further wound care. Last patient seen was in my office approximately 2 to 4 weeks ago for wound evaluation. At that time wound was cleaned and improving and care reinitiated. Patient recently called me over the weekend stating that she is having acute 9-10 out of 10 abdominal pain with sensitivity and tenderness upon palpation, multiple episodes of nonbloody emesis, intermittent nausea, dehydration and feeling extremely unwell as well as flulike symptoms. Patient was told to go to the emergency room for evaluation. Patient initially seen yesterday and given oral antibiotics but has deteriorated and return today for evaluation. Patient was admitted for medical care and management. Patient with significant cardiac history with plans to see a cardiac surgeon in [place] later this month. Patient with multiple other medical comorbidities that she is been trying to control/improve. Upon admission surgery called to evaluate for the abdominal pain and the midline wound. Patient seen in the emergency department, chart reviewed, patient evaluated. Patient with abdominal distention and discomfort. Wound improved as compared to when seen prior. No signs of active infection from wound. Labs reviewed. Allergies: Coded Allergies: No Known Allergies (Unverified , 01/19/19) Medication History Scheduled Amoxicillin/Potassium Clav 875-125* (Augmentin 875-125 Tablet*), 1 TAB ORAL TWICE A DAY Baclofen* (Baclofen*), 5 MG ORAL THREE TIMES A DAY, (Reported) Carvedilol (Coreg), 3.125 MG ORAL EVERY 12 HOURS, (Reported) Docusate Sodium* (Colace*), 100 MG ORAL THREE TIMES A DAY Furosemide (Furosemide), 40 MG ORAL DAILY, (Reported) Lisinopril (Lisinopril*), 2.5 MG ORAL DAILY, (Reported) Promethazine Hcl (Promethazine Hcl*), 5 ML ORAL Q6H Scheduled PRN Hydrocodone Bit/Acetaminophen 5-325* ([place] 5-325*), 1 TAB ORAL Q6H PRN Ibuprofen* (Motrin*), 400 MG ORAL Q6H PRN Patient History History Provided By: Patient, Medical Record, PMD Healthcare decision maker Resuscitation status Advanced Directive on File Past Medical/Surgical History Past Medical/Surgical History: (1) CHF (congestive heart failure) (2) Multiple sclerosis (3) Abdominal hernia (4) SBO (small bowel obstruction) (5) ABRAHAN (acute kidney injury) (6) Asthma Review of Systems Review of Symptoms General ROS: no weight loss or fever Psychological ROS: no depression or mood changes, no memory loss Ophthalmic ROS: no visual changes or eye irritation ENT ROS: no nasal congestion, hearing loss, dizziness Allergy and Immunology ROS: no allergic symptoms or urticaria Hematological and Lymphatic ROS: no swollen glands, unusual bleeding or bruising Endocrine ROS: no polyuria, polydipsia, weight changes, temperature intolerance Respiratory ROS: cough, shortness of breath, no wheezing Cardiovascular ROS: no chest pain or dyspnea on exertion Gastrointestinal ROS: abdominal pain, no bright red blood in stool. Musculoskeletal ROS: no myalgias or arthralgias Neurological ROS: no TIA or stroke symptoms Dermatological ROS: no new or changing skin lesions, rashes or pruritis Physical Exam Physical Exam General appearance: alert, cooperative, no distress, appears stated age Head: Normocephalic, without obvious abnormality, atraumatic Eyes: conjunctivae/corneas clear. PERRL, EOM's intact. Fundi benign Throat: Lips, mucosa, and tongue normal. Teeth and gums normal Neck: supple, symmetrical, trachea midline, no adenopathy, thyroid: not enlarged, symmetric, no tenderness/mass/nodules, no carotid bruit and no JVD Lungs: clear to auscultation bilaterally Heart: regular rate and rhythm, S1, S2 normal, no murmur, click, rub or gallop Abdomen: soft, distended, tender. Bowel sounds normal. No masses, no organomegaly. midline open woud Extremities: extremities normal, atraumatic, no cyanosis or edema Pulses: 2+ and symmetric Skin: Skin color, texture, turgor normal. No rashes or lesions Neurologic: Grossly normal Last 24 Hour Vital Signs Date Time Temp Pulse Resp B/P (MAP) Pulse Ox O2 Delivery O2 Flow Rate FiO2 01/20/19 16:14 98.4 99 24 115/81 99 Room Air 01/20/19 16:12 99 24 115/81 99 Room Air 01/20/19 13:26 98.4 100 26 131/118 100 Room Air 01/20/19 11:27 98.4 108 21 120/72 93 Room Air 01/20/19 10:53 98.4 124 20 108/90 (96) 98 Room Air Laboratory Tests Test 01/20/19 11:10 01/20/19 12:15 White Blood Count 6.8 K/UL (4.8-10.8) Red Blood Count 4.06 M/UL (4.20-5.40) L Hemoglobin 11.6 G/DL (12.0-16.0) L Hematocrit 35.0 % (37.0-47.0) L Mean Corpuscular Volume 86 FL (80-99) Mean Corpuscular Hemoglobin 28.6 PG (27.0-31.0) Mean Corpuscular Hemoglobin Concent 33.1 G/DL (32.0-36.0) Red Cell Distribution Width 14.0 % (11.6-14.8) Platelet Count 251 K/UL (150-450) Mean Platelet Volume 7.3 FL (6.5-10.1) Neutrophils (%) (Auto) 59.1 % (45.0-75.0) Lymphocytes (%) (Auto) 21.3 % (20.0-45.0) Monocytes (%) (Auto) 11.5 % (1.0-10.0) H Eosinophils (%) (Auto) 7.4 % (0.0-3.0) H Basophils (%) (Auto) 0.8 % (0.0-2.0) Urine Color Pale yellow Urine Appearance Clear Urine pH 6.5 (4.5-8.0) Urine Specific [place] 1.010 (1.005-1.035) Urine Protein Negative (NEGATIVE) Urine Glucose (UA) Negative (NEGATIVE) Urine Ketones Negative (NEGATIVE) Urine Blood 1+ (NEGATIVE) H Urine Nitrite Negative (NEGATIVE) Urine Bilirubin Negative (NEGATIVE) Urine Urobilinogen Normal MG/DL (0.0-1.0) Urine Leukocyte Esterase 1+ (NEGATIVE) H Urine RBC 0-2 /HPF (0 - 2) Urine WBC 0-2 /HPF (0 - 2) Urine Squamous Epithelial Cells Occasional /LPF Urine Bacteria Occasional /HPF (NONE) Sodium Level 136 MMOL/L (136-145) Potassium Level 2.6 MMOL/L (3.5-5.1) *L Chloride Level 96 MMOL/L (98-107) L Carbon Dioxide Level 30 MMOL/L (21-32) Anion Gap 11 mmol/L (5-15) Blood Urea Nitrogen 16 mg/dL (7-18) Creatinine 1.0 MG/DL (0.55-1.30) Estimat Glomerular Filtration Rate > 60 mL/min (>60) Glucose Level 115 MG/DL (74-106) H Calcium Level 8.9 MG/DL (8.5-10.1) Total Bilirubin 0.4 MG/DL (0.2-1.0) Aspartate Amino Transf (AST/SGOT) 39 U/L (15-37) H Alanine Aminotransferase (ALT/SGPT) 58 U/L (12-78) Alkaline Phosphatase 152 U/L (46-116) H Total Creatine Kinase 90 U/L (26-308) Creatine Kinase MB < 0.5 NG/ML (0.0-3.6) Creatine Kinase MB Relative Index Troponin I 0.058 ng/mL (0.000-0.056) Pro-B-Type Natriuretic Peptide 79 pg/mL (0-125) Total Protein 8.1 G/DL (6.4-8.2) Albumin 3.4 G/DL (3.4-5.0) Globulin 4.7 g/dL Albumin/Globulin Ratio 0.7 (1.0-2.7) L Lipase 85 U/L (73-393) Lactic Acid Level 1.20 mmol/L (0.4-2.0) Height (Feet): 5 Height (Inches): 3.00 Weight (Pounds): 220 Medications Current Medications Medications (Trade) Dose Ordered Sig/Johnny Route PRN Reason Start Time Stop Time Status Last Admin Dose Admin Iopamidol (Isovue-300 100ml) 100 ml NOW PRN INJ Radiology Procedure 01/20/19 11:15 Assessment/Plan Problem List: (1) Abdominal pain Assessment & Plan: CT scan with Since 03/23/2018, evidence of interim surgery for previously demonstrated obstructive ventral hernia. Previously demonstrated small bowel obstruction has resolved. However, there is a persistent broad-based defect into which herniates the mid transverse colon. There is no evidence of obstruction or strangulation related to this. There is evidence of an open wound defect at the umbilicus. No associated pathologic fluid collection or other complication demonstrated. Right lower quadrant lymphadenopathy, nonspecific as regards etiology Cholelithiasis Stool-filled colon. Correlate with any history of constipation Nonobstructive left lower pole intrarenal calyceal calculus, also previously demonstrated. Decreased or resolved pericardial effusion, since prior study Other findings as noted, including basilar pulmonary atelectatic changes, degenerative spondylosis, evidence of prior hysterectomy Exam with distended abdomen. soft, discomfort on palpation. wound bereket okay for diet likely constipated hernia noted / stable packing and dressing TID will monitor thank you ICD Codes: R10.9 - Unspecified abdominal pain SNOMED: 30422493 (2) Open abdominal wall wound Assessment & Plan: packing and dressing TID ICD Codes: S31.109A - Unspecified open wound of abdominal wall, unspecified quadrant without penetration into peritoneal cavity, initial encounter SNOMED: 871146086 (3) Upper respiratory infection, acute ICD Codes: J06.9 - Acute upper respiratory infection, unspecified SNOMED: 03185856 (4) SOB (shortness of breath) Assessment & Plan: as per Pulm ICD Codes: R06.02 - Shortness of breath SNOMED: 551418608 (5) Nausea & vomiting ICD Codes: R11.2 - Nausea with vomiting, unspecified SNOMED: 96136785 (6) Dehydration ICD Codes: E86.0 - Dehydration SNOMED: 33588460 (7) Abdominal hernia ICD Codes: K46.9 - Unspecified abdominal hernia without obstruction or gangrene SNOMED: 84519938 (8) CHF (congestive heart failure) Assessment & Plan: as per cardiology ICD Codes: I50.9 - Heart failure, unspecified SNOMED: 82477380 (9) SBO (small bowel obstruction) ICD Codes: K56.609 - Unspecified intestinal obstruction, unspecified as to partial versus complete obstruction SNOMED: 010261866 (10) Multiple sclerosis ICD Codes: G35 - Multiple sclerosis SNOMED: 12902803 (11) Asthma ICD Codes: J45.909 - Unspecified asthma, uncomplicated SNOMED: 420183062 (12) ABRAHAN (acute kidney injury) ICD Codes: N17.9 - Acute kidney failure, unspecified SNOMED: 02547650 Fernando Quinonez Jan 20, 2019 16:38
[2019-01-20] MEDS ORDERED: Miralax 17gm pkt ORAL PRN (16:45)
[2019-01-20] MEDS ORDERED: Milk of Magnesia 30ml Ud ORAL PRN (16:45)
[2019-01-20] MEDS ORDERED: LORazepam 1mg tab ORAL PRN (16:45)
[2019-01-20] MEDS ORDERED: Mylanta II UD 30ml ORAL PRN (16:45)
[2019-01-20] MEDS ORDERED: Hydromorphone 0.5mg/0.5ml inj IVP PRN (16:45)
[2019-01-20] MEDS ORDERED: HYDROmorphone 1mg/ml Carpuject IVP PRN (16:45)
[2019-01-20] MEDS ORDERED: Metoclopramide 10mg/2ml Inj IVP PRN (16:45)
[2019-01-20] MEDS ORDERED: Zolpidem 5mg tab ORAL PRN (16:45)
[2019-01-20] MEDS ORDERED: Nitroglycerin Subl 0.4mg tab SL PRN (16:45)
--- NOTE | 2019-01-20 17:10 | NUR ---
NURSE NOTES: Report received from ER. Patient on the floor at this time. AOX4. IV R AC, intact, SL. site monitor applied. gown changed. Patient made comfortable in the room. Oriented to hospital rules and regulations. White board updated. Belongings checked signed and filed. Bed on lowest position, side rails upx2. Call light within easy reach.
[2019-01-20] MEDS: NS w/KCl 40mEq 1,000 ML IV SCH (18:57)
--- NOTE | 2019-01-20 19:55 | NUR ---
HAND-OFF: Report given to JOSSELYN Maier. Patient in stable condition.
[2019-01-20 20:00] VITALS: BP 112/66
--- NOTE | 2019-01-20 20:00 | NUR ---
NURSE NOTES: received pt from JOSSELYN dunn. pt AOx4, no acute distress noted. family at bedside. pt updated on plan of care. verbalized understanding. bed locked and lowest position, side rail upx2, call light and belonging within reach. will continue to monitor for any change in condition.
[2019-01-20] MEDS: Heparin 5000 units/ml inj SUBQ SCH (21:00)
--- NOTE | 2019-01-20 21:17 | NUR ---
Patient complained of SOB. On 1L NC at this time.
[2019-01-20] MEDS: Docusate 100mg cap ORAL SCH (22:25)
[2019-01-21] VITALS: BP 110/75
--- NOTE | 2019-01-21 | NUR ---
NURSE NOTES: pt sleeping no change in condition. will continue to monitor for any change in condition.
[2019-01-21 04:00] VITALS: BP 94/59
--- NOTE | 2019-01-21 04:00 | NUR ---
NURSE NOTES: no acute distress noted. no change in condition. will continue to monitor for change in condition.
--- NOTE | 2019-01-21 06:49 | NUR ---
NURSE NOTES: Pt remains stable, no change in condition. pt AOx4, no acute distress noted. bed locked and lowest position, side rail upx2, call light and belonging within reach. all needs met during my shift. will endorse plan of care to incoming nurse.
[2019-01-21] MEDS: NS w/KCl 40mEq 1,000 ML IV SCH (06:51)
--- NOTE | 2019-01-21 07:17 | NUR ---
RADIOLOGY DEPT., CHEST X-RAY DONE IN ED AT 11:45 BY MATEO INIGUEZ
--- NOTE | 2019-01-21 07:42 | NUR ---
HAND-OFF: Report given to JOSSELYN Sales.
[2019-01-21 08:00] VITALS: BP 104/71
--- NOTE | 2019-01-21 08:07 | NUR ---
NURSE NOTES: Patient is alert and oriented. Patient is eating breakfast. Patient is on room air. Side rails are upx2, bed is locked, in lowest position, and call light is within reach. Will continue to monitor.
--- NOTE | 2019-01-21 08:30 | History and Physical Report ---
DATE OF ADMISSION: 01/20/2019 CHIEF COMPLAINT: Shortness of breath and cough. HISTORY OF PRESENT ILLNESS: The patient is a 44-year-old female. She has a history of obesity, prior hernia repair, history of nonischemic cardiomyopathy, and multiple sclerosis. She presented from home with complaints of cough and shortness of breath. According to the patient, she was well until several days prior to admission. She has had worsening cough and pain in the abdomen that she believes is related to her cough. She has had similar symptoms when she was "in heart failure." She denies any fevers or chills. She has had no chest pain. On evaluation in the emergency room, the patient was slightly tachycardic. Her potassium was 2.6. Her troponin was elevated at 0.058. EKG showed sinus rhythm. No acute ST-T wave changes were noted. Chest x-ray showed congestive heart failure. The patient is now admitted for further evaluation and care. PAST MEDICAL HISTORY: As above. PAST SURGICAL HISTORY: Includes hysterectomy and hernia repair. CURRENT MEDICATIONS: Reconciled and reviewed. ALLERGIES: None. FAMILY HISTORY: Significant for hypertension and thyroid disease. SOCIAL HISTORY: Negative for tobacco, ethanol, or drugs. REVIEW OF SYSTEMS: GENERAL: No fevers or chills. HEENT: No headaches. CARDIOPULMONARY: No chest pain. Positive shortness of breath. GASTROINTESTINAL: No nausea or vomiting. GENITOURINARY: No urgency or frequency. MUSCULOSKELETAL: No joint pain or swelling. NEUROLOGIC: No evidence of seizures. PHYSICAL EXAMINATION: VITAL SIGNS: Temperature 97.2, pulse 193, respirations 20, and blood pressure 94/59. GENERAL: The patient is a well-developed female, in no apparent distress. She is awake, alert, and oriented x4. NECK: Supple. HEART: Regular rate and rhythm. LUNGS: Significant diminished breath sounds. ABDOMEN: Soft, nontender, and nondistended. EXTREMITIES: Without clubbing or cyanosis. There is trace edema noted. LABORATORY DATA: White count 7, hemoglobin 11, hematocrit 35, and platelets 251,000. Sodium 136 and potassium is 2.6. Troponin 0.058. Urine was clear. ASSESSMENT: This is a 44-year-old female with a history of abdominal wound from a prior hernia repair, anxiety, multiple sclerosis, and congestive heart failure admitted with complaints of heart failure and exacerbation. PLAN: 1. Cautious diuretic therapy. 2. Replace electrolytes. 3. Cardiology consultation. 4. Check an echo. 5. Surgery and Pulmonary followup. consultations to be obtained. 6. Plan of care was discussed with the patient at the bedside. Butch Morrissey M.D. DR: QUINTON JOB#: [id number] CC:
[2019-01-21 08:38] LABS: BASOPHILS % (AUTO) 0.5 % (0.0-2.0); EOSINOPHILS % (AUTO) 7.6 % (0.0-3.0); HEMATOCRIT 31.9 % (37.0-47.0); HEMOGLOBIN 10.6 G/DL (12.0-16.0); LYMPHOCYTES % (AUTO) 28.9 % (20.0-45.0); MEAN CORPUSCULAR VOLUME 85 FL (80-99); MONOCYTES % (AUTO) 10.6 % (1.0-10.0); NEUTROPHILS % (AUTO) 52.4 % (45.0-75.0); PLATELET COUNT 205 K/UL (150-450); RED BLOOD COUNT 3.74 M/UL (4.20-5.40); RED CELL DISTRIBUTION WIDTH 13.7 % (11.6-14.8); WHITE BLOOD COUNT 5.4 K/UL (4.8-10.8)
--- NOTE | 2019-01-21 08:45 | Consultation ---
DATE OF CONSULTATION: 01/21/2019 REASON FOR CONSULTATION: Respiratory insufficiency. HISTORY: This is a 44-year-old female, who had prior surgical intervention. The patient presented with incarcerated ventral hernia. The patient developed open midline wound. The patient also with some shortness of breath and some cough and congestion. I was called to assist with pulmonary management. The patient has had some gastrointestinal symptoms. The patient was admitted for medical care and management. The patient with some abdominal distention. Overall care was reviewed and discussed with the surgeon. PAST MEDICAL HISTORY: Notable for congestive heart failure, multiple sclerosis, history of small-bowel obstruction, and asthma. MEDICATIONS: Reviewed. ALLERGIES: Reviewed. SOCIAL HISTORY: Noted and reviewed. Nonsmoker and nondrinker. The patient is disabled. REVIEW OF SYSTEMS: All 10-points reviewed and otherwise negative. PHYSICAL EXAMINATION: GENERAL: A well-developed female, overall comfortable. VITAL SIGNS: Blood pressure 94/59, heart rate 83, respirations 20, and temperature 98.2. HEENT: Negative. NECK: Supple. No adenopathy. The patient's oropharynx is moist. LUNGS: Fairly clear and symmetric. No rhonchi or wheezes. CARDIAC: Normal S1, S2. Regular rate and rhythm without murmurs. ABDOMEN: Soft, distended, and tender. EXTREMITIES: No cyanosis, clubbing, or edema. NEUROLOGIC: Grossly nonfocal. LABORATORY DATA: Otherwise reviewed. CBC is fairly normal. Hemoglobin noted. Potassium 2.6. Repeat pending. BUN and creatinine are normal. Troponin is 0.058. Albumin 3.4. IMPRESSION: 1. Obstructive ventral hernia. 2. Congestive heart failure. 3. Asthma. 4. Right lower quadrant lymphadenopathy. 5. Cholelithiasis. 6. Constipation. RECOMMENDATIONS: 1. Surgical care and follow-up. 2. Incentive spirometry. 3. Albuterol as needed. 4. Monitor respiratory status and recommend further. 5. Lasix with caution. 6. Monitor electrolytes. Potassium replaced. 7. I appreciate the opportunity to assist in this patient's care. Clay Dalton M.D. DR: AUDI JOB#: [id number] CC: ALVINO
[2019-01-21 08:54] LABS: CREATINE KINASE 59 U/L (26-308); INR 0.9 (0.9-1.1)
[2019-01-21] MEDS: Heparin 5000 units/ml inj SUBQ SCH ×2 (09:00→21:33)
[2019-01-21 09:04] LABS: ALANINE AMINOTRANSFERASE 58 U/L (12-78); ALBUMIN/GLOBULIN RATIO 0.6 (1.0-2.7); ALKALINE PHOSPHATASE 121 U/L (46-116); ANION GAP 11 mmol/L (5-15); ASPARTATE AMINO TRANSFERASE 39 U/L (15-37); BILIRUBIN,TOTAL 0.5 MG/DL (0.2-1.0); BLOOD UREA NITROGEN 15 mg/dL (7-18); CALCIUM 8.6 MG/DL (8.5-10.1); CARBON DIOXIDE 32 MMOL/L (21-32); CHLORIDE 102 MMOL/L (98-107); CHOLESTEROL 167 MG/DL (< 200); HDL CHOLESTEROL 50 MG/DL (40-60); SODIUM 144 MMOL/L (136-145); TRIGLYCERIDES 132 MG/DL (30-150)
[2019-01-21 09:32] LABS: POTASSIUM 2.2 MMOL/L (3.5-5.1)
[2019-01-21] MEDS: Docusate 100mg cap ORAL SCH ×2 (09:34→21:29)
[2019-01-21] MEDS ORDERED: Sodium Chloride for KCL Premix X 4hrs IV SCH (10:15)
--- NOTE | 2019-01-21 10:15 | NUR ---
P.T NOTE: P.T EVALUATION COMPLETED. PATIENT IS ALERT, O X 4 , PLEASANT AND COOPERATIVE. C/O 3-10 PAIN IN ABDOMINAL AREA HOWEVER AGREEABLE TO PARTICIPATE IN P.T EVALUATION. BASED ON P.T EVALUATION, PATIENT IS CURRENTLY BASELINE INDEPENDENT WITH ADL/FUNCTIONAL MOBILITIES AND GAIT/LOCOMOTION. CURRENT FUNCTIONAL STATUS DOES NOT WARRANT SKILLED P.T SERVICES AT THIS TIME. EDUCATED PATIENT ON OOB ACTIVITIES I.E AMBULATION TOLERATED WHILE OBSERVING SAFETY AWARENESS AND ENERGY CONSERVATION VS BEDREST UNLESS OTHERWISE SPECIFIED AND ORDERED. PATIENT VERBALIZED UNDERSTANDING. D/C P.T SERVICES. THANK YOU FOR THIS REFERRAL.
[2019-01-21] MEDS: Albuterol ud Inhalation HHN SCH ×4 (11:54→23:00)
[2019-01-21 12:00] VITALS: BP 102/70
--- NOTE | 2019-01-21 13:42 | NUR ---
CASE MANAGEMENT:REVIEW 44 YR OLD FEMALE FROM [facility] TO [facility] ER CC: WOUND RECHECK/SUTURE REMOVAL PMH: WOUND DEHISCENCE SI:HYPOKALEMIA 98.5 124 20 108/90 98% ON RA K-2.6 TROPONIN(+) 0.058 IS: IV REGLAN 1L NS BOLUS IVF+KCL IV LASIX IV BENADRYL KCL PO CT ABD/PELVIS CHEST XRAY BLOOD CX : TO TELEMETRY
--- NOTE | 2019-01-21 13:42 | Surgery Progress Note ---
Surgery Progress Note Subjective Additional Comments states she feels better today. pain improved. no n/v/f/c. tolerating diet. was informed about CT findings. exam stable. Objective Last 24 Hour Vital Signs Date Time Temp Pulse Resp B/P (MAP) Pulse Ox O2 Delivery O2 Flow Rate FiO2 01/21/19 12:03 100 20 99 Room Air 21 01/21/19 11:48 79 20 97 Room Air 21 01/21/19 11:48 97 Room Air 21 01/21/19 11:45 94 20 97 Room Air 21 01/21/19 09:34 128 104/71 01/21/19 08:45 Room Air 01/21/19 08:00 97.1 128 18 104/71 (82) 95 18 01/21/19 08:00 104 01/21/19 04:00 93 01/21/19 04:00 98.2 98 20 94/59 (71) 98 01/21/19 00:00 110 01/21/19 00:00 99.1 110 20 110/75 (87) 95 01/20/19 22:26 117 112/66 01/20/19 21:00 Room Air 01/20/19 20:00 97.2 117 20 112/66 (81) 93 01/20/19 20:00 93 01/20/19 19:13 Room Air 01/20/19 16:14 98.4 99 24 115/81 99 Room Air 01/20/19 16:12 99 24 115/81 99 Room Air I&O Intake and Output 01/20/19 01/21/19 18:59 06:59 Intake Total 500 ml 350 ml Balance 500 ml 350 ml Intake Oral 0 ml 350 ml Other 500 ml # Voids 3 6 # Bowel Movements 3 Dressing: saturated Wound: clean Drains: none Cardiovascular: RSR Respiratory: clear Abdomen: soft, flat, non-tender, present bowel sounds, non-distended Extremities: no tenderness, no cyanosis Laboratory Tests Test 01/21/19 06:52 White Blood Count 5.4 K/UL (4.8-10.8) Red Blood Count 3.74 M/UL (4.20-5.40) L Hemoglobin 10.6 G/DL (12.0-16.0) L Hematocrit 31.9 % (37.0-47.0) L Mean Corpuscular Volume 85 FL (80-99) Mean Corpuscular Hemoglobin 28.3 PG (27.0-31.0) Mean Corpuscular Hemoglobin Concent 33.1 G/DL (32.0-36.0) Red Cell Distribution Width 13.7 % (11.6-14.8) Platelet Count 205 K/UL (150-450) Mean Platelet Volume 6.9 FL (6.5-10.1) Neutrophils (%) (Auto) 52.4 % (45.0-75.0) Lymphocytes (%) (Auto) 28.9 % (20.0-45.0) Monocytes (%) (Auto) 10.6 % (1.0-10.0) H Eosinophils (%) (Auto) 7.6 % (0.0-3.0) H Basophils (%) (Auto) 0.5 % (0.0-2.0) Erythrocyte Sedimentation Rate 111 MM/HR (0-20) H Prothrombin Time 10.0 SEC (9.30-11.50) Prothromb Time International Ratio 0.9 (0.9-1.1) Activated Partial Thromboplast Time 26 SEC (23-33) Sodium Level 144 MMOL/L (136-145) Potassium Level 2.2 MMOL/L (3.5-5.1) *L Chloride Level 102 MMOL/L (98-107) Carbon Dioxide Level 32 MMOL/L (21-32) Anion Gap 11 mmol/L (5-15) Blood Urea Nitrogen 15 mg/dL (7-18) Creatinine 1.0 MG/DL (0.55-1.30) Estimat Glomerular Filtration Rate > 60 mL/min (>60) Glucose Level 113 MG/DL (74-106) H Hemoglobin A1c 5.3 % (4.3-6.0) Calcium Level 8.6 MG/DL (8.5-10.1) Total Bilirubin 0.5 MG/DL (0.2-1.0) Aspartate Amino Transf (AST/SGOT) 39 U/L (15-37) H Alanine Aminotransferase (ALT/SGPT) 58 U/L (12-78) Alkaline Phosphatase 121 U/L (46-116) H Total Creatine Kinase 59 U/L (26-308) Troponin I 0.054 ng/mL (0.000-0.056) C-Reactive Protein, Quantitative 4.6 mg/dL (0.00-0.90) H Pro-B-Type Natriuretic Peptide 60 pg/mL (0-125) Total Protein 7.8 G/DL (6.4-8.2) Albumin 3.0 G/DL (3.4-5.0) L Globulin 4.8 g/dL Albumin/Globulin Ratio 0.6 (1.0-2.7) L Triglycerides Level 132 MG/DL (30-150) Cholesterol Level 167 MG/DL (< 200) LDL Cholesterol 95 mg/dL (<100) HDL Cholesterol 50 MG/DL (40-60) Cholesterol/HDL Ratio 3.3 (3.3-4.4) Thyroid Stimulating Hormone (TSH) 1.702 uiU/mL (0.358-3.740) Plan Problems: (1) Abdominal pain Assessment & Plan: CT scan with Since 03/23/2018, evidence of interim surgery for previously demonstrated obstructive ventral hernia. Previously demonstrated small bowel obstruction has resolved. However, there is a persistent broad-based defect into which herniates the mid transverse colon. There is no evidence of obstruction or strangulation related to this. There is evidence of an open wound defect at the umbilicus. No associated pathologic fluid collection or other complication demonstrated. Right lower quadrant lymphadenopathy, nonspecific as regards etiology Cholelithiasis Stool-filled colon. Correlate with any history of constipation Nonobstructive left lower pole intrarenal calyceal calculus, also previously demonstrated. Decreased or resolved pericardial effusion, since prior study Other findings as noted, including basilar pulmonary atelectatic changes, degenerative spondylosis, evidence of prior hysterectomy Exam with distended abdomen. soft, discomfort on palpation. wound bereket okay for diet likely constipated hernia noted / stable packing and dressing TID will monitor thank you (2) Open abdominal wall wound Assessment & Plan: packing and dressing TID (3) Upper respiratory infection, acute (4) SOB (shortness of breath) Assessment & Plan: as per Pulm (5) Nausea & vomiting (6) Dehydration (7) Abdominal hernia (8) CHF (congestive heart failure) Assessment & Plan: as per cardiology (9) SBO (small bowel obstruction) (10) Multiple sclerosis (11) Asthma (12) ABRAHAN (acute kidney injury) Additional Comments replace electrolytes. trend labs will follow with Fernando Walsh Jan 21, 2019 13:42
[2019-01-21] MEDS: Piperacillin/Tazobactam 3.375 GM in NS 110 ML IVPB SCH ×2 (14:24→21:33)
[2019-01-21 16:00] VITALS: BP 99/70
--- NOTE | 2019-01-21 19:04 | NUR ---
NURSE NOTES: Report received from JOSSELYN Sales. pt is in stable condition sitting at bedside. No cardiopulmonary distress noted. Bed in lowest position, bed brakes engaged, side rails up x3 and call light within reach. Will continue to monitor.
--- NOTE | 2019-01-21 19:26 | NUR ---
HAND-OFF: Report given to JOSSELYN Anaya.
[2019-01-21 20:00] VITALS: BP 118/63
[2019-01-22] VITALS: BP 116/71
[2019-01-22] MEDS: Albuterol ud Inhalation HHN SCH ×6 (03:00→22:49)
[2019-01-22 04:00] VITALS: BP 136/58
[2019-01-22] MEDS: Piperacillin/Tazobactam 3.375 GM in NS 110 ML IVPB SCH ×3 (06:00→21:40)
[2019-01-22 07:02] LABS: BASOPHILS % (AUTO) 0.9 % (0.0-2.0); EOSINOPHILS % (AUTO) 6.9 % (0.0-3.0); HEMATOCRIT 28.6 % (37.0-47.0); HEMOGLOBIN 9.7 G/DL (12.0-16.0); LYMPHOCYTES % (AUTO) 25.9 % (20.0-45.0); MEAN CORPUSCULAR VOLUME 85 FL (80-99); MONOCYTES % (AUTO) 10.4 % (1.0-10.0); PLATELET COUNT 204 K/UL (150-450); RED BLOOD COUNT 3.35 M/UL (4.20-5.40); RED CELL DISTRIBUTION WIDTH 13.9 % (11.6-14.8); WHITE BLOOD COUNT 5.8 K/UL (4.8-10.8)
[2019-01-22 07:12] LABS: ALANINE AMINOTRANSFERASE 56 U/L (12-78); ALBUMIN 2.8 G/DL (3.4-5.0); ALBUMIN/GLOBULIN RATIO 0.7 (1.0-2.7); ALKALINE PHOSPHATASE 147 U/L (46-116); ANION GAP 8 mmol/L (5-15); ASPARTATE AMINO TRANSFERASE 38 U/L (15-37); BILIRUBIN,TOTAL 0.3 MG/DL (0.2-1.0); BLOOD UREA NITROGEN 16 mg/dL (7-18); CALCIUM 8.1 MG/DL (8.5-10.1); CARBON DIOXIDE 31 MMOL/L (21-32); CHLORIDE 103 MMOL/L (98-107); CREATININE 1.1 MG/DL (0.55-1.30); SODIUM 141 MMOL/L (136-145)
--- NOTE | 2019-01-22 07:37 | NUR ---
HAND-OFF: Report given to JOSSELYN Amaro. Plan of care endorsed.
[2019-01-22 07:43] LABS: POTASSIUM 2.7 MMOL/L (3.5-5.1)
[2019-01-22 08:00] VITALS: BP 103/58
--- NOTE | 2019-01-22 08:19 | General Progress Note ---
Assessment/Plan Problem List: (1) Abdominal hernia ICD Codes: K46.9 - Unspecified abdominal hernia without obstruction or gangrene SNOMED: 69931662 (2) SOB (shortness of breath) ICD Codes: R06.02 - Shortness of breath SNOMED: 177263550 (3) CHF (congestive heart failure) ICD Codes: I50.9 - Heart failure, unspecified SNOMED: 19837817 Status: stable Assessment/Plan: diuresis resp care o2 replace k dc planning if repeat k ok Subjective ROS Limited/Unobtainable: No Constitutional: Reports: malaise, weakness HEENT: Reports: no symptoms Cardiovascular: Reports: no symptoms Respiratory: Reports: no symptoms Gastrointestinal/Abdominal: Reports: no symptoms Genitourinary: Reports: no symptoms Neurologic/Psychiatric: Reports: no symptoms Endocrine: Reports: no symptoms Hematologic/Lymphatic: Reports: no symptoms Allergies: Coded Allergies: No Known Allergies (Unverified , 01/19/19) All Systems: reviewed and negative except above Subjective states she feels much better. wants to go home. hr still slightly high. low k Objective Last 24 Hour Vital Signs Date Time Temp Pulse Resp B/P (MAP) Pulse Ox O2 Delivery O2 Flow Rate FiO2 01/22/19 07:21 96 Nasal Cannula 2.0 28 01/22/19 07:21 98 20 96 Nasal Cannula 2.0 28 01/22/19 04:00 98.0 106 20 136/58 (84) 98 01/22/19 04:00 92 01/22/19 03:22 Room Air 21 01/22/19 03:22 Room Air 21 01/22/19 00:00 105 01/22/19 00:00 98.0 115 20 116/71 (86) 99 110 01/21/19 23:03 Room Air 21 01/21/19 23:03 Room Air 21 01/21/19 21:29 110 118/63 01/21/19 21:00 Room Air 01/21/19 20:00 101 01/21/19 20:00 97.5 103 20 118/63 (81) 100 110 01/21/19 19:57 102 20 99 Room Air 21 01/21/19 19:47 109 20 97 Room Air 21 01/21/19 19:47 97 Room Air 21 01/21/19 16:39 99 20 98 Room Air 21 01/21/19 16:30 103 20 95 Room Air 21 01/21/19 16:00 98.3 110 18 99/70 (80) 95 110 01/21/19 16:00 103 01/21/19 12:03 100 20 99 Room Air 21 01/21/19 12:00 97.0 113 20 102/70 (81) 94 01/21/19 12:00 103 01/21/19 11:48 79 20 97 Room Air 21 01/21/19 11:48 97 Room Air 21 01/21/19 11:45 94 20 97 Room Air 21 01/21/19 09:34 128 104/71 01/21/19 08:45 Room Air Intake and Output 01/21/19 01/22/19 19:00 07:00 Intake Total 360 ml Balance 360 ml Intake Oral 360 ml # Voids 3 2 Laboratory Tests 01/22/19 06:40: White Blood Count 5.8, Red Blood Count 3.35L, Hemoglobin 9.7L, Hematocrit 28.6L , Mean Corpuscular Volume 85, Mean Corpuscular Hemoglobin 29.0, Mean Corpuscular Hemoglobin Concent 33.9, Red Cell Distribution Width 13.9, Platelet Count 204, Mean Platelet Volume 6.9, Neutrophils (%) (Auto) 56.0, Lymphocytes (% ) (Auto) 25.9, Monocytes (%) (Auto) 10.4H, Eosinophils (%) (Auto) 6.9H, Basophils (%) (Auto) 0.9, Sodium Level 141, Potassium Level 2.7*L, Chloride Level 103, Carbon Dioxide Level 31, Anion Gap 8, Blood Urea Nitrogen 16, Creatinine 1.1, Estimat Glomerular Filtration Rate 54.2, Glucose Level 142H, Calcium Level 8.1L, Total Bilirubin 0.3, Aspartate Amino Transf (AST/SGOT) 38H, Alanine Aminotransferase (ALT/SGPT) 56, Alkaline Phosphatase 147H, Total Protein 6.7, Albumin 2.8L, Globulin 3.9, Albumin/Globulin Ratio 0.7L Height (Feet): 5 Height (Inches): 3.00 Weight (Pounds): 215 General Appearance: WD/WN, alert Neck: supple Cardiovascular: normal rate, regular rhythm Respiratory/Chest: chest wall non-tender, lungs clear, normal breath sounds, no respiratory distress Abdomen: normal bowel sounds, non tender, soft, no organomegaly Edema: no edema noted Arm (L), no edema noted Arm (R), no edema noted Leg (L), no edema noted Leg (R), no edema noted Pedal (L), no edema noted Pedal (R), no edema noted Generalized Butch Morrissey MD Jan 22, 2019 08:19
--- NOTE | 2019-01-22 08:50 | Pulmonology Progress Note ---
Assessment/Plan Assessment/Plan IMPRESSION: 1. Obstructive ventral hernia. 2. Congestive heart failure. 3. Asthma. 4. Right lower quadrant lymphadenopathy. 5. Cholelithiasis. 6. Constipation. PLAN care as is monitor follow up exam albuterol as needed outpatient PFT surgical clearance impression, plan, and exam edited and reviewed in detail care discussed with RN Subjective Allergies: Coded Allergies: No Known Allergies (Unverified , 01/19/19) Subjective comfortable no sob at present Objective Last 24 Hour Vital Signs Date Time Temp Pulse Resp B/P (MAP) Pulse Ox O2 Delivery O2 Flow Rate FiO2 01/22/19 08:00 97.5 93 16 103/58 (73) 100 01/22/19 07:21 96 Nasal Cannula 2.0 28 01/22/19 07:21 98 20 96 Nasal Cannula 2.0 28 01/22/19 04:00 98.0 106 20 136/58 (84) 98 01/22/19 04:00 92 01/22/19 03:22 Room Air 21 01/22/19 03:22 Room Air 21 01/22/19 00:00 105 01/22/19 00:00 98.0 115 20 116/71 (86) 99 110 01/21/19 23:03 Room Air 21 01/21/19 23:03 Room Air 21 01/21/19 21:29 110 118/63 01/21/19 21:00 Room Air 01/21/19 20:00 101 01/21/19 20:00 97.5 103 20 118/63 (81) 100 110 01/21/19 19:57 102 20 99 Room Air 21 01/21/19 19:47 109 20 97 Room Air 21 01/21/19 19:47 97 Room Air 21 01/21/19 16:39 99 20 98 Room Air 21 01/21/19 16:30 103 20 95 Room Air 21 01/21/19 16:00 98.3 110 18 99/70 (80) 95 110 01/21/19 16:00 103 01/21/19 12:03 100 20 99 Room Air 21 01/21/19 12:00 97.0 113 20 102/70 (81) 94 01/21/19 12:00 103 01/21/19 11:48 79 20 97 Room Air 21 01/21/19 11:48 97 Room Air 21 01/21/19 11:45 94 20 97 Room Air 21 01/21/19 09:34 128 104/71 Intake and Output 01/21/19 01/22/19 19:00 07:00 Intake Total 360 ml Balance 360 ml Intake Oral 360 ml # Voids 3 2 Objective GENERAL: A well-developed female, NAD HEENT: Negative. NECK: Supple. No adenopathy. The patient's oropharynx is moist. LUNGS: Fairly clear and symmetric. No rhonchi or wheezes. CARDIAC: Normal S1, S2. Regular rate and rhythm without murmurs. ABDOMEN: Soft, distended, and tender. EXTREMITIES: No cyanosis, clubbing, or edema. NEUROLOGIC: Grossly nonfocal. Laboratory Tests 01/22/19 06:40: White Blood Count 5.8, Red Blood Count 3.35L, Hemoglobin 9.7L, Hematocrit 28.6L , Mean Corpuscular Volume 85, Mean Corpuscular Hemoglobin 29.0, Mean Corpuscular Hemoglobin Concent 33.9, Red Cell Distribution Width 13.9, Platelet Count 204, Mean Platelet Volume 6.9, Neutrophils (%) (Auto) 56.0, Lymphocytes (% ) (Auto) 25.9, Monocytes (%) (Auto) 10.4H, Eosinophils (%) (Auto) 6.9H, Basophils (%) (Auto) 0.9, Sodium Level 141, Potassium Level 2.7*L, Chloride Level 103, Carbon Dioxide Level 31, Anion Gap 8, Blood Urea Nitrogen 16, Creatinine 1.1, Estimat Glomerular Filtration Rate 54.2, Glucose Level 142H, Calcium Level 8.1L, Total Bilirubin 0.3, Aspartate Amino Transf (AST/SGOT) 38H, Alanine Aminotransferase (ALT/SGPT) 56, Alkaline Phosphatase 147H, Total Protein 6.7, Albumin 2.8L, Globulin 3.9, Albumin/Globulin Ratio 0.7L Current Medications Medications (Trade) Dose Ordered Sig/Johnny Route PRN Reason Start Time Stop Time Status Last Admin Dose Admin Acetaminophen (Tylenol) 650 mg Q4H PRN ORAL fever 01/20/19 16:45 02/19/19 16:44 Al Hydroxide/Mg Hydroxide (Mylanta II) 30 ml Q6H PRN ORAL dyspepsia 01/20/19 16:45 02/19/19 16:44 Albuterol Sulfate (Proventil) 2.5 mg Q4HRT HHN 01/21/19 11:00 01/26/19 10:59 01/22/19 07:20 Bisacodyl (Dulcolax) 10 mg HSPRN PRN RECTAL Constipation 01/20/19 16:45 02/19/19 16:44 Carvedilol (Coreg) 3.125 mg EVERY 12 HOURS ORAL 01/20/19 21:00 02/19/19 20:59 01/21/19 21:29 Dextrose (Dextrose 50%) 25 ml Q30M PRN IV Hypoglycemia 01/20/19 16:45 02/19/19 16:44 Dextrose (Dextrose 50%) 50 ml Q30M PRN IV Hypoglycemia 01/20/19 16:45 02/19/19 16:44 Diphenhydramine HCl (Benadryl) 25 mg Q6H PRN ORAL Itching/Pruritis 01/20/19 16:45 02/19/19 16:44 Docusate Sodium (Colace) 100 mg EVERY 12 HOURS ORAL 01/20/19 21:00 02/19/19 20:59 01/21/19 21:29 Furosemide (Lasix) 40 mg DAILY IV 01/21/19 10:15 02/20/19 10:14 01/21/19 10:51 Heparin Sodium (Porcine) (Heparin 5000 units/ml) 5,000 units EVERY 12 HOURS SUBQ 01/20/19 21:00 02/19/19 20:59 01/21/19 21:33 Hydromorphone HCl (Dilaudid) 0.5 mg Q3H PRN IVP For Pain 01/20/19 16:45 01/27/19 16:44 Hydromorphone HCl (Dilaudid) 1 mg Q3H PRN IVP Moderate Pain (Pain Scale 4-6) 01/20/19 16:45 01/27/19 16:44 Iopamidol (Isovue-300 100ml) 100 ml NOW PRN INJ Radiology Procedure 01/20/19 11:15 Lorazepam (Ativan) 1 mg Q4H PRN ORAL For Anxiety 01/20/19 16:45 01/27/19 16:44 Magnesium Hydroxide (Mom) 30 ml HSPRN PRN ORAL Constipation 01/20/19 16:45 02/19/19 16:44 Metoclopramide HCl (Reglan) 10 mg Q6H PRN IVP Nausea & Vomiting 01/20/19 16:45 02/19/19 16:44 Nitroglycerin (Ntg) 0.4 mg Q5M X 3 DOSES PRN SL Prn Chest Pain 01/20/19 16:45 02/19/19 16:44 Ondansetron HCl (Zofran) 4 mg Q6H PRN IVP Nausea & Vomiting 01/20/19 16:45 02/19/19 16:44 Pantoprazole (Protonix) 40 mg DAILY ORAL 01/21/19 09:00 02/20/19 08:59 01/21/19 09:34 Piperacillin Sod/ Tazobactam Sod 3.375 gm/Sodium Chloride 110 ml @ 27.5 mls/hr EVERY 8 HOURS IVPB 01/21/19 14:00 01/26/19 13:59 01/22/19 06:00 Polyethylene Glycol (Miralax) 17 gm HSPRN PRN ORAL Constipation 01/20/19 16:45 02/19/19 16:44 Potassium Chloride 100 ml @ 100 mls/hr Q1H IVPB 01/22/19 09:00 01/22/19 12:59 Potassium Chloride (K-Dur) 40 meq ONCE ORAL 01/22/19 08:30 01/22/19 09:30 Sodium Chloride 400 ml @ 100 mls/hr Q4H IV 01/22/19 09:00 01/22/19 12:59 Zolpidem Tartrate (Ambien) 5 mg HSPRN PRN ORAL Insomnia 01/20/19 16:45 01/27/19 16:44 Clay Dalton MD Jan 22, 2019 08:50
[2019-01-22] MEDS: Docusate 100mg cap ORAL SCH ×2 (08:54→20:26)
[2019-01-22] MEDS: Heparin 5000 units/ml inj SUBQ SCH ×2 (08:55→20:27)
[2019-01-22] MEDS ORDERED: Sodium Chloride for KCL Premix X 4hrs IV SCH ×2 (09:00→20:00)
[2019-01-22 12:00] VITALS: BP 107/72
--- NOTE | 2019-01-22 12:56 | NUR ---
CASE MANAGEMENT:REVIEW 01/22/19 SI: OBSTRUCTIVE VENTRAL HERNIA CHF. ASTHMA. CHOLELITHIASIS 98.2 97 18 107/72 99% ON RA H/H-9.7/28.6 K-2.7 IS: LOTENSIN PO QD IV KCL Q1HRS X4 IVF@100/HR IV ZOSYN Q8HRS ALBUTEROL HHN Q4HRS RTC IV LASIX QD COREG PO Q12 : TELEMETRY STATUS DCP: FROM HOME
--- NOTE | 2019-01-22 14:45 | Surgery Progress Note ---
Surgery Progress Note Subjective Symptoms: improved, pain absent, tolerating diet, BM Additional Comments doing well. no complaints. wants to go home. labs noted. not ready for dc Objective Last 24 Hour Vital Signs Date Time Temp Pulse Resp B/P (MAP) Pulse Ox O2 Delivery O2 Flow Rate FiO2 01/22/19 12:00 98.2 97 18 107/72 (84) 99 01/22/19 12:00 95 01/22/19 11:38 21 01/22/19 09:00 Room Air 01/22/19 09:00 93 103/58 01/22/19 08:00 97.5 93 16 103/58 (73) 100 01/22/19 08:00 92 01/22/19 07:21 96 Nasal Cannula 2.0 28 01/22/19 07:21 98 20 96 Nasal Cannula 2.0 28 01/22/19 04:00 98.0 106 20 136/58 (84) 98 01/22/19 04:00 92 01/22/19 03:22 Room Air 21 01/22/19 03:22 Room Air 21 01/22/19 00:00 105 01/22/19 00:00 98.0 115 20 116/71 (86) 99 110 01/21/19 23:03 Room Air 21 01/21/19 23:03 Room Air 21 01/21/19 21:29 110 118/63 01/21/19 21:00 Room Air 01/21/19 20:00 101 01/21/19 20:00 97.5 103 20 118/63 (81) 100 110 01/21/19 19:57 102 20 99 Room Air 21 01/21/19 19:47 109 20 97 Room Air 21 01/21/19 19:47 97 Room Air 21 01/21/19 16:39 99 20 98 Room Air 21 01/21/19 16:30 103 20 95 Room Air 21 01/21/19 16:00 98.3 110 18 99/70 (80) 95 110 01/21/19 16:00 103 I&O Intake and Output 01/21/19 01/22/19 18:59 06:59 Intake Total 360 ml Balance 360 ml Intake Oral 360 ml # Voids 3 2 Dressing: saturated Wound: clean Drains: none Cardiovascular: RSR Respiratory: clear Abdomen: soft, flat, non-tender, present bowel sounds, non-distended Extremities: no tenderness, no cyanosis Laboratory Tests Test 01/22/19 06:40 White Blood Count 5.8 K/UL (4.8-10.8) Red Blood Count 3.35 M/UL (4.20-5.40) L Hemoglobin 9.7 G/DL (12.0-16.0) L Hematocrit 28.6 % (37.0-47.0) L Mean Corpuscular Volume 85 FL (80-99) Mean Corpuscular Hemoglobin 29.0 PG (27.0-31.0) Mean Corpuscular Hemoglobin Concent 33.9 G/DL (32.0-36.0) Red Cell Distribution Width 13.9 % (11.6-14.8) Platelet Count 204 K/UL (150-450) Mean Platelet Volume 6.9 FL (6.5-10.1) Neutrophils (%) (Auto) 56.0 % (45.0-75.0) Lymphocytes (%) (Auto) 25.9 % (20.0-45.0) Monocytes (%) (Auto) 10.4 % (1.0-10.0) H Eosinophils (%) (Auto) 6.9 % (0.0-3.0) H Basophils (%) (Auto) 0.9 % (0.0-2.0) Sodium Level 141 MMOL/L (136-145) Potassium Level 2.7 MMOL/L (3.5-5.1) *L Chloride Level 103 MMOL/L (98-107) Carbon Dioxide Level 31 MMOL/L (21-32) Anion Gap 8 mmol/L (5-15) Blood Urea Nitrogen 16 mg/dL (7-18) Creatinine 1.1 MG/DL (0.55-1.30) Estimat Glomerular Filtration Rate 54.2 mL/min (>60) Glucose Level 142 MG/DL (74-106) H Calcium Level 8.1 MG/DL (8.5-10.1) L Total Bilirubin 0.3 MG/DL (0.2-1.0) Aspartate Amino Transf (AST/SGOT) 38 U/L (15-37) H Alanine Aminotransferase (ALT/SGPT) 56 U/L (12-78) Alkaline Phosphatase 147 U/L (46-116) H Total Protein 6.7 G/DL (6.4-8.2) Albumin 2.8 G/DL (3.4-5.0) L Globulin 3.9 g/dL Albumin/Globulin Ratio 0.7 (1.0-2.7) L Plan Problems: (1) Abdominal pain Assessment & Plan: CT scan with Since 03/23/2018, evidence of interim surgery for previously demonstrated obstructive ventral hernia. Previously demonstrated small bowel obstruction has resolved. However, there is a persistent broad-based defect into which herniates the mid transverse colon. There is no evidence of obstruction or strangulation related to this. There is evidence of an open wound defect at the umbilicus. No associated pathologic fluid collection or other complication demonstrated. Right lower quadrant lymphadenopathy, nonspecific as regards etiology Cholelithiasis Stool-filled colon. Correlate with any history of constipation Nonobstructive left lower pole intrarenal calyceal calculus, also previously demonstrated. Decreased or resolved pericardial effusion, since prior study Other findings as noted, including basilar pulmonary atelectatic changes, degenerative spondylosis, evidence of prior hysterectomy Exam with distended abdomen. soft, discomfort on palpation. wound clean okay for diet likely constipated hernia noted / stable packing and dressing TID will monitor thank you (2) Open abdominal wall wound Assessment & Plan: packing and dressing TID (3) Upper respiratory infection, acute (4) SOB (shortness of breath) Assessment & Plan: as per Pulm (5) Nausea & vomiting (6) Dehydration (7) Abdominal hernia (8) CHF (congestive heart failure) Assessment & Plan: as per cardiology (9) SBO (small bowel obstruction) (10) Multiple sclerosis (11) Asthma (12) ABRAHAN (acute kidney injury) Additional Comments not ready to go home cont with replacement electrolytes Fernando Quinonez Jan 22, 2019 14:45
[2019-01-22 15:58] LABS: ALANINE AMINOTRANSFERASE 57 U/L (12-78); ALBUMIN 2.9 G/DL (3.4-5.0); ALBUMIN/GLOBULIN RATIO 0.7 (1.0-2.7); ALKALINE PHOSPHATASE 147 U/L (46-116); ANION GAP 10 mmol/L (5-15); ASPARTATE AMINO TRANSFERASE 39 U/L (15-37); BILIRUBIN,TOTAL 0.3 MG/DL (0.2-1.0); BLOOD UREA NITROGEN 16 mg/dL (7-18); CALCIUM 8.2 MG/DL (8.5-10.1); CARBON DIOXIDE 27 MMOL/L (21-32); CHLORIDE 103 MMOL/L (98-107); CREATININE 1.3 MG/DL (0.55-1.30); POTASSIUM 3.2 MMOL/L (3.5-5.1); SODIUM 140 MMOL/L (136-145)
[2019-01-22 16:00] VITALS: BP 125/59
--- NOTE | 2019-01-22 16:00 | NUR ---
NURSE NOTES: Surgical wound care and dressing change done by the nurse. Will continue to monitor the patient.
--- NOTE | 2019-01-22 18:00 | NUR ---
NURSE NOTES: Reported Potassium of 2.7 to 3.2 after replacement and Magnesium of 1.7 to . Will continue to monitor the patient.
--- NOTE | 2019-01-22 19:20 | NUR ---
HAND-OFF: Report given to JOSSELYN Thrasher. The patient is resting on the bed without acute distress or shortness of breath. The patient's bed in the lowest position, call light in reach, and fall precaution reinforced. Endorsed plan of care.
--- NOTE | 2019-01-22 19:30 | NUR ---
NURSE NOTES: Received patient from JOSSELYN Amaro. Patient is stable, will continue plan of care.
[2019-01-22 20:00] VITALS: BP 112/75
--- NOTE | 2019-01-22 20:10 | NUR ---
NURSE NOTES: Clarified with JOSSELYN Amaro that Dr. Morrissey does not want patient to receive 40meq KCL IV once rather he ordered 40meq KCL (k-dur) PO now (1999) and in 4 hours an additional 40meq KCL(k-dur) PO. Orders are edited and clarified with pharmacy.
[2019-01-23] VITALS: BP 122/79
--- NOTE | 2019-01-23 01:45 | Progress Note ---
DATE: 01/22/2019 CARDIOLOGY PROGRESS NOTE SUBJECTIVE: The patient has no chest pain. She denies shortness of breath. She continues to have low potassium level. Monitored rhythm, sinus with occasional PVCs. OBJECTIVE: VITAL SIGNS: Blood pressure 103/58, pulse 93, respiratory rate 16, and afebrile. LUNGS: Diminished breath sounds. CARDIAC: Regular rhythm and rate. Normal S1 and S2. A 1/6 systolic murmur at the apex. ABDOMEN: Obese. Surgical site with dressing in place. EXTREMITIES: With trace edema. LABORATORY DATA: Sodium 141, potassium 2.7, bicarbonate 31, BUN 16, creatinine 1.1, and magnesium 1.7. White count 5.8 and hemoglobin 9.7. IMPRESSION: 1. Dilated cardiomyopathy, presumably due to hypertension and possible prior viral syndrome. The patient has plans for outpatient defibrillator once wounds have healed. 2. Hypokalemia. 3. Hypomagnesemia. 4. Chronic systolic congestive heart failure. PLAN: 1. Wound care. 2. Replace potassium and magnesium. 3. Titrate beta-ev. 4. Restart CHANTELLE inhibitor. 5. Transition from IV to oral maintenance diuretic dosing for discharge. Jose Alfredo Mcfadden M.D. DR: GREGORIO JOB#: [id number] CC:
[2019-01-23] MEDS: Albuterol ud Inhalation HHN SCH ×3 (03:00→11:32)
[2019-01-23 04:00] VITALS: BP 101/62
[2019-01-23] MEDS: Piperacillin/Tazobactam 3.375 GM in NS 110 ML IVPB SCH (05:43)
--- NOTE | 2019-01-23 07:00 | NUR ---
NURSE NOTES: Received report from JOSSELYN Thrasher. The patient is sleeping on the bed without acute distress or shortness of breath. The patient's bed in the lowest position, call light in reach, and fall precaution reinforced. Will continue plan of care.
--- NOTE | 2019-01-23 07:27 | NUR ---
HAND-OFF: Report given to JOSSELYN Amaro.
[2019-01-23 08:00] VITALS: BP 127/89
[2019-01-23] MEDS: Docusate 100mg cap ORAL SCH (08:42)
[2019-01-23] MEDS: Heparin 5000 units/ml inj SUBQ SCH (08:44)
[2019-01-23] MEDS ORDERED: Benazepril 10mg tab ORAL SCH (09:00)
[2019-01-23 10:04] LABS: ALANINE AMINOTRANSFERASE 56 U/L (12-78); ALBUMIN 2.8 G/DL (3.4-5.0); ALBUMIN/GLOBULIN RATIO 0.6 (1.0-2.7); ALKALINE PHOSPHATASE 171 U/L (46-116); ANION GAP 12 mmol/L (5-15); ASPARTATE AMINO TRANSFERASE 31 U/L (15-37); BILIRUBIN,TOTAL 0.3 MG/DL (0.2-1.0); BLOOD UREA NITROGEN 19 mg/dL (7-18); CALCIUM 8.7 MG/DL (8.5-10.1); CARBON DIOXIDE 24 MMOL/L (21-32); CHLORIDE 107 MMOL/L (98-107); CREATININE 1.1 MG/DL (0.55-1.30); POTASSIUM 3.5 MMOL/L (3.5-5.1); SODIUM 143 MMOL/L (136-145)
--- NOTE | 2019-01-23 10:30 | NUR ---
NURSE NOTES: Reported to Dr. Mcfadden that the patient would like to leave as soon as possible within today. Notified Dr. Mcfadden that her potassium level went upto 3.5 this morning after replacement. Also notified that Mg level was 1.7 and awaiting for the result.
--- NOTE | 2019-01-23 11:30 | NUR ---
Dr. Mcfadden ordered for discharge to home after potassium and magnesium level normalized. Dr. Mcfadden was notified regarding troponin level. Dr. Quinonez also cleared for d/c in terms of hernia surgical wound. Per patient, she made the appointment for outpatient wound care with Dr. Quinonez. Will carry out the order.
--- NOTE | 2019-01-23 11:38 | Pulmonology Progress Note ---
Assessment/Plan Assessment/Plan IMPRESSION: 1. Obstructive ventral hernia. 2. Congestive heart failure. 3. Asthma. 4. Right lower quadrant lymphadenopathy. 5. Cholelithiasis. 6. Constipation. PLAN care as is monitor follow up exam albuterol as needed outpatient PFT surgical clearance maintain same for now impression, plan, and exam edited and reviewed in detail care discussed with RN Subjective Allergies: Coded Allergies: No Known Allergies (Unverified , 01/19/19) Subjective comfortable no sob at present Objective Last 24 Hour Vital Signs Date Time Temp Pulse Resp B/P (MAP) Pulse Ox O2 Delivery O2 Flow Rate FiO2 01/23/19 11:33 Room Air 21 01/23/19 11:32 Room Air 21 01/23/19 09:13 Room Air 01/23/19 09:11 Room Air 01/23/19 09:10 94 Room Air 01/23/19 09:00 Room Air 01/23/19 08:43 127/89 01/23/19 08:43 97 127/89 01/23/19 08:00 98.2 97 18 127/89 (102) 97 01/23/19 08:00 98 01/23/19 04:00 98.0 90 20 101/62 (75) 98 01/23/19 03:50 Room Air 01/23/19 03:49 Room Air 01/23/19 03:44 92 01/23/19 00:00 98.2 94 20 122/79 (93) 95 01/22/19 23:42 100 01/22/19 22:51 Room Air 01/22/19 22:49 Room Air 01/22/19 21:00 Room Air 01/22/19 20:26 103 110/73 01/22/19 20:26 95 Room Air 01/22/19 20:00 98.3 100 20 112/75 (87) 95 01/22/19 19:59 101 01/22/19 19:45 Room Air 01/22/19 19:45 Room Air 01/22/19 16:00 96 01/22/19 16:00 97.7 97 16 125/59 (81) 95 01/22/19 15:49 21 01/22/19 12:00 98.2 97 18 107/72 (84) 99 01/22/19 12:00 95 Intake and Output 01/22/19 01/23/19 19:00 07:00 Intake Total 650 ml 217.82 ml Balance 650 ml 217.82 ml Intake Oral 650 ml IV Total 217.82 ml # Voids 3 2 # Bowel Movements 1 1 Objective GENERAL: A well-developed female, NAD HEENT: Negative. NECK: Supple. No adenopathy. The patient's oropharynx is moist. LUNGS: Fairly clear and symmetric. No rhonchi or wheezes. CARDIAC: Normal S1, S2. Regular rate and rhythm without murmurs. ABDOMEN: Soft, distended, and tender. EXTREMITIES: No cyanosis, clubbing, or edema. NEUROLOGIC: Grossly nonfocal. Microbiology Date/Time Source Procedure Growth Status 01/20/19 12:26 Blood Blood Culture - Preliminary NO GROWTH AFTER 48 HOURS Resulted 01/20/19 12:15 Blood Blood Culture - Preliminary NO GROWTH AFTER 48 HOURS Resulted Laboratory Tests 01/22/19 15:23: Sodium Level 140, Potassium Level 3.2L, Chloride Level 103, Carbon Dioxide Level 27, Anion Gap 10, Blood Urea Nitrogen 16, Creatinine 1.3, Estimat Glomerular Filtration Rate 44.7, Glucose Level 146H, Calcium Level 8.2L, Magnesium Level 1.7L, Total Bilirubin 0.3, Aspartate Amino Transf (AST/SGOT) 39H , Alanine Aminotransferase (ALT/SGPT) 57, Alkaline Phosphatase 147H, Total Protein 7.1, Albumin 2.9L, Globulin 4.2, Albumin/Globulin Ratio 0.7L 01/23/19 09:21: Sodium Level 143, Potassium Level 3.5, Chloride Level 107, Carbon Dioxide Level 24, Anion Gap 12, Blood Urea Nitrogen 19H, Creatinine 1.1, Estimat Glomerular Filtration Rate 54.2, Glucose Level 235H, Calcium Level 8.7, Magnesium Level 1.9 , Total Bilirubin 0.3, Aspartate Amino Transf (AST/SGOT) 31, Alanine Aminotransferase (ALT/SGPT) 56, Alkaline Phosphatase 171H, Total Protein 7.6, Albumin 2.8L, Globulin 4.8, Albumin/Globulin Ratio 0.6L Current Medications Medications (Trade) Dose Ordered Sig/Johnny Route PRN Reason Start Time Stop Time Status Last Admin Dose Admin Acetaminophen (Tylenol) 650 mg Q4H PRN ORAL fever 01/20/19 16:45 02/19/19 16:44 Al Hydroxide/Mg Hydroxide (Mylanta II) 30 ml Q6H PRN ORAL dyspepsia 01/20/19 16:45 02/19/19 16:44 Albuterol Sulfate (Proventil) 2.5 mg Q4HRT HHN 01/21/19 11:00 01/26/19 10:59 01/22/19 07:20 Benazepril HCl (Lotensin) 10 mg DAILY ORAL 01/23/19 09:00 02/22/19 08:59 01/23/19 08:43 Bisacodyl (Dulcolax) 10 mg HSPRN PRN RECTAL Constipation 01/20/19 16:45 02/19/19 16:44 Carvedilol (Coreg) 3.125 mg EVERY 12 HOURS ORAL 01/20/19 21:00 02/19/19 20:59 01/23/19 08:43 Dextrose (Dextrose 50%) 25 ml Q30M PRN IV Hypoglycemia 01/20/19 16:45 02/19/19 16:44 Dextrose (Dextrose 50%) 50 ml Q30M PRN IV Hypoglycemia 01/20/19 16:45 02/19/19 16:44 Diphenhydramine HCl (Benadryl) 25 mg Q6H PRN ORAL Itching/Pruritis 01/20/19 16:45 02/19/19 16:44 Docusate Sodium (Colace) 100 mg EVERY 12 HOURS ORAL 01/20/19 21:00 02/19/19 20:59 01/23/19 08:42 Furosemide (Lasix) 40 mg DAILY IV 01/21/19 10:15 02/20/19 10:14 01/23/19 08:46 Heparin Sodium (Porcine) (Heparin 5000 units/ml) 5,000 units EVERY 12 HOURS SUBQ 01/20/19 21:00 02/19/19 20:59 01/23/19 08:44 Hydromorphone HCl (Dilaudid) 0.5 mg Q3H PRN IVP For Pain 01/20/19 16:45 01/27/19 16:44 Hydromorphone HCl (Dilaudid) 1 mg Q3H PRN IVP Moderate Pain (Pain Scale 4-6) 01/20/19 16:45 01/27/19 16:44 Iopamidol (Isovue-300 100ml) 100 ml NOW PRN INJ Radiology Procedure 01/20/19 11:15 Lorazepam (Ativan) 1 mg Q4H PRN ORAL For Anxiety 01/20/19 16:45 01/27/19 16:44 Magnesium Hydroxide (Mom) 30 ml HSPRN PRN ORAL Constipation 01/20/19 16:45 02/19/19 16:44 Metoclopramide HCl (Reglan) 10 mg Q6H PRN IVP Nausea & Vomiting 01/20/19 16:45 02/19/19 16:44 Nitroglycerin (Ntg) 0.4 mg Q5M X 3 DOSES PRN SL Prn Chest Pain 01/20/19 16:45 02/19/19 16:44 Ondansetron HCl (Zofran) 4 mg Q6H PRN IVP Nausea & Vomiting 01/20/19 16:45 02/19/19 16:44 Pantoprazole (Protonix) 40 mg DAILY ORAL 01/21/19 09:00 02/20/19 08:59 01/23/19 08:43 Piperacillin Sod/ Tazobactam Sod 3.375 gm/Sodium Chloride 110 ml @ 27.5 mls/hr EVERY 8 HOURS IVPB 01/21/19 14:00 01/26/19 13:59 01/23/19 05:43 Polyethylene Glycol (Miralax) 17 gm HSPRN PRN ORAL Constipation 01/20/19 16:45 02/19/19 16:44 Zolpidem Tartrate (Ambien) 5 mg HSPRN PRN ORAL Insomnia 01/20/19 16:45 01/27/19 16:44 Clay Dalton MD Jan 23, 2019 11:38
[2019-01-23 12:00] VITALS: BP 113/75
[2019-01-23] MEDS ORDERED: Spironolactone 25mg tab ORAL SCH (12:00)
[2019-01-23] MEDS ORDERED: BENAZEPRIL HCL20 MG ORAL (12:00)
[2019-01-23] MEDS ORDERED: ALBUTEROL2.5 MG/3 M INH (12:01)
[2019-01-23] MEDS ORDERED: CARVEDILOL6.25 MG ORAL (12:02)
[2019-01-23] MEDS ORDERED: FUROSEMIDE40 MG ORAL (12:03)
[2019-01-23] MEDS ORDERED: PANTOPRAZOLE SO40 MG ORAL (12:03)
[2019-01-23] MEDS ORDERED: K-TAB ER20 MEQ PO (12:06)
[2019-01-23] MEDS ORDERED: ALDACTONE25 MG ORAL (12:07)
[2019-01-23] MEDS ORDERED: ZOLPIDEM TARTRAT5 MG ORAL (12:08)
--- NOTE | 2019-01-23 12:30 | NUR ---
NURSE NOTES: The patient is safely discharged to home with Nathen, boy friend via private vehicle in a safe manner. The patient was stable without acute distress or shortness of breath at the time of discharge. The patient's vital signs has been stable. The patient's last potassium and magnesium level was in normal range and notified to Dr. Mcfadden. Discharge instruction, teaching, and new medication instruction given to the patient and verbalized understanding. The patient inventory checked with the patient and all belongings were with her. The patient signed for discharge instruction and inventory checklist. The patient's IV, tele monitoring box, and name band was removed by the nurse. The patient already made the appointment for Dr. Quinonez's outpatient wound care clinic and will follow up as scheduled. Last dose of Spironolactone and KCl was given before discharge. The patient was discharged in a safe manner. Addendum: 01/23/19 at 1259 by Blas Rachel RN Last wound care completed. Addendum: 01/23/19 at 1302 by Blas Rachel RN O2 therapy that Dr. Ghanshyam ortega was cleared by Dr. Mcfadden. No need for O2 support at this time.
[2019-01-23] MEDS ORDERED: NS 275ml ONE (12:53)
[2019-01-23] MEDS ORDERED: Tubing IV Secondary IV ONE (12:53)
[2019-01-23] MEDS ORDERED: NS 500ML ONE (12:53)
--- NOTE | 2019-01-23 19:15 | Cardiology Report ---
APPROVED REPORT EKG Measurement Heart [id number] Sinus tachycardia Cannot rule out Anterior infarct, age undetermined Prolonged QT Abnormal ECG
[2019-01-23] MEDS ORDERED: Carvedilol 6.25mg Tab ORAL SCH (21:00)
--- NOTE | 2019-01-24 05:00 | Progress Note ---
DATE: 01/23/2019 CARDIOLOGY PROGRESS NOTE SUBJECTIVE: The patient is anxious to go home. She denies chest pain or shortness of breath. OBJECTIVE: VITAL SIGNS: Blood pressure 113/75, pulse 103, respirations 18, and oxygen saturation on room air 94%. LUNGS: Clear. CARDIAC: Regular rhythm and rate. Normal S1, S2. A 1/6 systolic murmur at apex. ABDOMEN: Obese. SKIN: Wound site with dressing and no drainage. EXTREMITIES: Trace edema. LABORATORY DATA: White count 5.8, hemoglobin 9.7. Potassium 3.5, magnesium 1.9, BUN 19, creatinine 1.1. IMPRESSION: 1. Dilated cardiomyopathy. 2. Acute on chronic systolic congestive heart failure. 3. Abdominal wound. 4. Hypokalemia, corrected. 5. Hypomagnesemia, corrected. 6. Moderate protein-calorie malnutrition. 7. Anemia, worsening. PLAN: 1. Add Aldactone. 2. Continue CHANTELLE inhibitor and carvedilol. 3. Follow up laboratory studies in 48 hours by PMD. 4. Maintenance dose diuretic with potassium supplement. 5. The patient has had a regular primary special education teacher she follows in her area and has plans for a defibrillator implant once her wound has healed. The patient's medications were called in by me to her pharmacy. Jose Alfredo Mcfadden M.D. DR: JEREMIAH JOB#: [id number] CC:
[2019-01-24] MEDS ORDERED: Spironolactone 25mg tab ORAL SCH (09:00)
[2019-01-24] MEDS ORDERED: Furosemide 40mg tab ORAL SCH (09:00)
[2019-01-24] MEDS ORDERED: Benazepril 10mg tab ORAL SCH (09:00)
--- NOTE | 2019-01-24 11:14 | Cardiology Report ---
APPROVED REPORT EXAM: Two-dimensional and M-mode echocardiogram with Doppler and color Doppler. INDICATION Acute myocard infarction M-Mode DIMENSIONS IVSd1.0 (0.7-1.1cm)Left Atrium (MM)4.8 (1.6-4.0cm) LVDd7.7 (3.5-5.6cm)Aortic Root2.0 (2.0-3.7cm) PWd0.8 (0.7-1.1cm)Aortic Cusp Exc.1.7 (1.5-2.0cm) IVSs1.4 cm LVDs6.3 (2.5-4.0cm) PWs1.2 cm Mild left ventricular enlargement . Global left ventricular hypokinesis . Left ventricular ejection fraction estimated to be 25-30%. No evidence of left ventricular hypertrophy . Anterior Echo-free space, may be due to pericardial fat or effusion. All other cardiac chamber sizes are within normal limits. Aortic valve calcification with normal cusp excursion . Mildly thickened mitral valve leaflets with normal excursion. Mild mitral annulus and aortic root calcification. Pulmonic valve not well visualized. IVC at normal size with physiologic collapse. A color flow and spectral Doppler study was performed and revealed: No aortic insufficiency . Left ventricular diastolic function is not diagnostic due to arrhythmia . Mild to moderate mitral regurgitation. Trace tricuspid regurgitation. Tricuspid systolic velocities suggests peak right ventricular systolic pressure of 17mmHg.
--- NOTE | 2019-01-25 04:30 | Progress Note ---
DATE: 01/21/2019 CARDIOLOGY PROGRESS NOTE Late Entry SUBJECTIVE: The patient's echocardiogram was reviewed. Her ejection fraction is estimated in the range of 25 to 30%, this was discussed with the patient. She is aware of her poor cardiac function. She has been recommended to have a defibrillator placed and that has scheduled as an outpatient in several months. The limiting factor has been her open abdominal wound. The patient's heart failure and cardiomyopathy presumably due to a prior "infection and possibly high blood pressure", although she says it is not "sure." The patient does have , no shortness of breath today. OBJECTIVE: VITAL SIGNS: Blood pressure 99/70, pulse 110, respiratory rate 18, afebrile. GENERAL: Hernia repair site has dressing in place. No purulent drainage seen. LUNGS: Diminished breath sounds. No rales. CARDIAC: Regular rhythm. Rapid rate. Normal S1 and S2 with a 1/6 systolic apical murmur. ABDOMEN: Obese. EXTREMITIES: With trace dependent edema. LABORATORY DATA: White count 5.4 and hemoglobin 10.6. Troponin is 0.054. IMPRESSION: 1. Nonischemic cardiomyopathy. 2. Troponin leak due to cardiomyopathy and chronic ischemic changes due to left ventricular dysfunction. 3. Acute on chronic systolic congestive heart failure. 4. Hypokalemia with potassium of 2.2. 5. Mild protein-calorie malnutrition. 6. Secondary sinus tachycardia. PLAN: 1. Antimicrobials. 2. Wound care. 3. Potassium replacement. 4. Check magnesium. 5. Cautious diuresis. 6. Cardiac monitoring. 7. Beta-ev. Once blood pressure can tolerate, ____ addition of further anti-failure drugs such as angiotensin-converting enzyme inhibitor. Jose Alfredo Mcfadden M.D. DR: JANES JOB#: [id number] CC:
--- NOTE | 2019-01-25 04:30 | Consultation ---
DATE OF CONSULTATION: 01/20/2019 CARDIOLOGY CONSULT CONSULTING PHYSICIAN: Jose Alfredo Mcfadden M.D. REQUESTING PHYSICIANS: Fernando Quinonez M.D. and Butch Morrissey M.D. REASON FOR CONSULTATION: Congestive heart failure and elevated troponin level. HISTORY OF PRESENT ILLNESS: This is a 44-year-old female. She has a history of cardiomyopathy that is likely due to viral and hypertensive etiology. She has been managed with oral medications. She is being considered for a defibrillator. She is also undergoing weekly wound care with Dr. Quinonez for hernia repair that has failed to heal. She was seen in the emergency room and was noted to have abnormal laboratory studies. PAST MEDICAL HISTORY: Prior hysterectomy, prior hernia repairs, hypertension, and multiple sclerosis. ALLERGIES: None. MEDICATIONS: Reviewed. FAMILY HISTORY: Notable for hypertension. SOCIAL HISTORY: Negative for smoking, alcohol, or substance abuse. REVIEW OF SYSTEMS: No fevers or chills. No cough. No recent upper respiratory infection. No history of blood clots. No melena or change in bowel habits. No frequency or dysuria. No history of diabetes or thyroid impairment. No history of seizures or strokes. She is being considered for cardiac defibrillator. PHYSICAL EXAMINATION: VITAL SIGNS: Blood pressure 108/90, pulse 124, respiratory rate 20, and afebrile. GENERAL: Moderately obese. NECK: Jugular venous pressure difficult to assess. LUNGS: Diminished breath sounds. No wheezing or rales. CARDIAC: Regular rhythm. Rapid rate. Normal S1 and S2 with a third heart sound. ABDOMEN: Soft and obese. Surgical site has dressing in serous discharge. EXTREMITIES: Trace dependent edema. LABORATORY DATA: Sodium 136, potassium 2.6, BUN 16, creatinine 1, and bicarbonate 30. Troponin 0.058. White count 6.8 and hemoglobin 11.6. Pro-natriuretic peptide is 79. IMPRESSION: 1. Infected surgical wound. 2. Cardiomyopathy, presumably nonischemic. 3. Troponin leak likely due to tachycardia and decrease oxygen delivery. 4. Secondary sinus tachycardia. 5. Hypokalemia. 6. Anemia. 7. Possibly falsely lowered natriuretic peptide assay in the setting of obesity. PLAN: 1. Antimicrobials and wound care. 2. Potassium replacement and to follow up levels including magnesium. 3. Serial troponin. 4. Add carvedilol. 5. Followup with CHANTELLE inhibitor if blood pressure stabilizes. 6. Cardiac monitoring. 7. Echocardiogram. Jose Alfredo Mcfadden M.D. DR: MOSHE JOB#: [id number] CC:
--- NOTE | 2019-01-27 07:49 | Discharge Summary ---
Discharge Summary Discharge Summary _ DATE OF ADMISSION: 01/20/2019 DATE OF DISCHARGE: 01/23/2019 DISCHARGED BY: Dr. Morrissey REASON FOR ADMISSION: 44 years old female with past medical history of obesity, nonischemic cardiomyopathy, multiple sclerosis, history of hernia repair, presented from home with complaints of cough and shortness of breath. Symptoms started few days ago. Patient reported worsening cough and pain in the abdomen and pelvis , presumptively related to her cough. Patient reported that she had similar symptoms when she is in heart failure. She denied fever or chills. No chest pain. On evaluation in emergency department patient was slightly tachycardic. Troponin was minimally elevated -0.058. EKG showed sinus rhythm, no acute ischemic changes. Potassium -2.6. Chest x-ray showed congestive heart failure. CT of the abdomen and pelvis demonstrated evidence of surgery for previous obstructive ventral hernia. No evidence of obstruction or strangulation related to this. Persistent broad-based defect into which herniates mid transverse colon. Evidence of open wound defect at the umbilicus. No associated pathological fluid collection or other complication. Cholelithiasis. Stool-filled colon. Physical examination demonstrated open abdominal wound Patient admitted to telemetry floor for further management. CONSULTANTS: candy bar attendant Dr. Mcfadden pulmonary Dr. Dalton surgery Dr. Quinonez [facility]SE: Patient admitted to telemetry floor. Patient started on diuretic therapy with close monitoring of volumes and cardiorenal parameters. Poultry Cutter followed. Second troponin - 0.054. EKG and telemetry revealed no acute ischemic changes. Patient was ruled out for acute PA. Echocardiogram revealed ejection fraction of 20 to 30% with global left ventricular hypokinesis. No evidence of left ventricular hypertrophy. Mild to moderate mitral regurgitation. Right ventricular systolic pressure of 17. Lipid panel was stable. Guideline directed medical therapy for congestive heart failure continued, including Lasix, beta-ev ,CHANTELLE inhibitor, and Aldactone was added for further effect. Patient follows us as outpatient on a regular basis with candy bar attendant and already had plans for defibrillator implantation after abdominal wound will be healed. Per candy bar attendant , troponin leak was secondary to cardiomyopathy and chronic ischemic changes secondary to left ventricular dysfunction Distributor Of Directories followed. Supplemental oxygen provided as needed to keep pulse oximetry above 92%. Pulmonary toilet provided as needed. No evidence of asthma exacerbation. Distributor Of Director[employer] recommended outpatient PFT test. On discharge albuterol inhaler as needed. Surgeon closely followed. Patient had incarcerated ventral hernia requiring repair about a year ago. She developed open midline wound and cared for it in outpatient wound care center near her home in [place]. Patient recently healed the wound , but developed a seroma which opened and required further wound care. Patient presented to surgeon office about 2 to 4 weeks ago for wound evaluation. At that time wound was cleaned and improved . Upon clinical examination wound showed improvement as compared to when seen before. No signs of acute infection around the wound. Abdominal examination was stable .Hernia appeared to be stable. Discomfort on palpation was likely due to constipation. Bowel regimen instituted. Wound was packed and dressed as recommended by surgeon 3 times a day. Continue wound care as outpatient. Blood cultures were negative. Potassium was replaced. Renal parameters and electrolytes were closely monitored. Electrolytes further corrected as needed, including potassium and magnesium. Prior to discharge all electrolytes stable. Pain management was addressed as needed. Bowel regimen continued. Hemoglobin and hematocrit are closely monitor his goal to keep hemoglobin above 7. Prior to discharge hemoglobin 9.7 hematocrit 28.8. Patient clinically stabilized and was ready for discharge home. FINAL DIAGNOSES: Acute on chronic systolic congestive heart failure Dilated /nonischemic cardiomyopathy Troponin leak due to cardiomyopathy and chronic ischemic changes , secondary to left ventricular dysfunction Electrolyte abnormalities: hypokalemia hypomagnesemia Open abdominal wound History of prior ventral hernia repair due to incarcerated ventral hernia Cholelithiasis Constipation Asthma Multiple sclerosis DISCHARGE MEDICATIONS: See Medication Reconciliation list. DISCHARGE INSTRUCTIONS: Patient was discharged home Follow up with primary care provider and candy bar attendant in one week. Follow-up with outpatient wound care clinic. Outpatient PFT was recommended I have been assigned to dictate discharge summary for this account. I was not involved in the patient's management. Alison Grant NP Jan 27, 2019 07:49
== END 2019-01-23 12:54 | disposition home or self-care (01) | DRG 292 ==
LOC: EMR 11:46 → 2E 12:40 → EDBEDREQ 13:36 → 2E 16:16
DX: I50.23 Acute on chronic systolic (congestive) heart failure (principal); N17.9 Acute kidney failure, unspecified; E44.1 Mild protein-calorie malnutrition; I42.0 Dilated cardiomyopathy; K80.20 Calculus of gallbladder without cholecystitis without obstruction; G35 Multiple sclerosis; S31.105D Unspecified open wound of abdominal wall, periumbilic region without penetration into peritoneal cavity, subsequent encounter; X58.XXXD Exposure to other specified factors, subsequent encounter; F41.9 Anxiety disorder, unspecified; J06.9 Acute upper respiratory infection, unspecified; R11.2 Nausea with vomiting, unspecified; E86.0 Dehydration; J45.909 Unspecified asthma, uncomplicated; K59.00 Constipation, unspecified; R00.0 Tachycardia, unspecified; E87.6 Hypokalemia; D64.9 Anemia, unspecified; E66.9 Obesity, unspecified; R59.0 Localized enlarged lymph nodes; E83.42 Hypomagnesemia
CPT/HCPCS: 36415; 71045; 74177; 80053; 80061; 81003; 82550; 82553; 83036; 83605; 83690; 83735; 83880; 84443; 84484; 85025; 85610; 85651; 85730; 86140; 87040; 93005; 93306; 94640; 94664; 96361; 96374; 96375; 99285; J2765; J8499

== ENCOUNTER 2019-05-31 14:02 | Inpatient (IN) | payer MEDICARE, OTHER ==
[~2019-05-31] VITALS: Ht 160 cm; Wt 103.4 kg
[~2019-05-31 14:02] MED LIST changes: +ALBUTEROL2.5 MG/3 M INH; +ALDACTONE25 MG ORAL; +BENAZEPRIL HCL20 MG ORAL; +CARVEDILOL6.25 MG ORAL; +FUROSEMIDE40 MG ORAL; +K-TAB ER20 MEQ PO; +PANTOPRAZOLE SO40 MG ORAL; +ZOLPIDEM TARTRAT5 MG ORAL
--- NOTE | 2019-05-31 15:16 | Diagnostic Imaging Report ---
Indication: Chest pain Comparison: 01/20/2019 A single view chest radiograph was obtained. Findings: Interval pacemaker placement on the left side noted. Leads projected over the right atrium and ventricle. The heart is enlarged. No pneumothorax identified. The lungs are clear. IMPRESSION: No acute findings. Pacemaker noted
--- NOTE | 2019-05-31 15:30 | NUR ---
ED Nurse Note:pt. came for pre-op with lower abdominal hurnia, pt. is ambulatory, blood and urine sent to labs
[2019-05-31 15:32] LABS: BASOPHILS % (AUTO) 0.9 % (0.0-2.0); EOSINOPHILS % (AUTO) 3.2 % (0.0-3.0); HEMATOCRIT 32.5 % (37.0-47.0); HEMOGLOBIN 11.4 G/DL (12.0-16.0); LYMPHOCYTES % (AUTO) 20.4 % (20.0-45.0); MEAN CORPUSCULAR VOLUME 82 FL (80-99); MONOCYTES % (AUTO) 7.4 % (1.0-10.0); NEUTROPHILS % (AUTO) 68.1 % (45.0-75.0); PLATELET COUNT 216 K/UL (150-450); RED BLOOD COUNT 3.96 M/UL (4.20-5.40); RED CELL DISTRIBUTION WIDTH 11.9 % (11.6-14.8); WHITE BLOOD COUNT 8.7 K/UL (4.8-10.8)
[2019-05-31 15:39] LABS: APPEARANCE,URINE CLEAR; BILIRUBIN, URINE NEGATIVE (NEGATIVE); COLOR,URINE PALE YELLOW; GLUCOSE, URINE (UA) NEGATIVE (NEGATIVE); KETONES,URINE NEGATIVE (NEGATIVE); LEUKOCYTE ESTERASE ,URINE NEGATIVE (NEGATIVE); NITRITE,URINE NEGATIVE (NEGATIVE); PH,URINE 7 (4.5-8.0); PROTEIN,URINE NEGATIVE (NEGATIVE); UROBILINOGEN,URINE NORMAL MG/DL (0.0-1.0)
[2019-05-31 15:44] LABS: ANION GAP 11 mmol/L (5-15); BLOOD UREA NITROGEN 22 mg/dL (7-18); CALCIUM 8.8 MG/DL (8.5-10.1); CARBON DIOXIDE 28 MMOL/L (21-32); CHLORIDE 106 MMOL/L (98-107); POTASSIUM 3.2 MMOL/L (3.5-5.1); SODIUM 145 MMOL/L (136-145)
[2019-05-31 15:46] LABS: INR 0.9 (0.9-1.1)
[2019-05-31 15:49] LABS: ALANINE AMINOTRANSFERASE 106 U/L (12-78); ALBUMIN 3.1 G/DL (3.4-5.0); ALBUMIN/GLOBULIN RATIO 0.7 (1.0-2.7); ALKALINE PHOSPHATASE 180 U/L (46-116); ASPARTATE AMINO TRANSFERASE 60 U/L (15-37); BILIRUBIN,TOTAL 0.3 MG/DL (0.2-1.0)
[2019-05-31 16:36] VITALS: BP 142/85
[2019-05-31] MEDS ORDERED: Omnipaque-300 100ml vial INJ PRN (16:45)
--- NOTE | 2019-05-31 17:57 | Consultation ---
History of Present Illness General Date patient seen: May 31, 2019 Reason for Hospitalization: Pain Present Illness HPI This is a very pleasant 44-year-old female with multiple medical comorbidities who is well-known to me from prior surgery, office visits, care plan. I initially met the patient approximately 2 years ago when she presented with a incarcerated ventral hernia and proceeded with exploration and reduction repair. She was discharged safely at that time and developed a wound dehiscence requiring approximately 2 months of wound VAC which is being managed by outside wound care center. She is healed from that and was doing well for several months where she then developed a potential seroma or infection leading to open wound at which time she was evaluated identified to have a recurrence of her hernia but without obstruction. She has been well since and I have seen her in the office intermittently but called me to tell me that she has developed acute abdominal pain and some serous drainage from her abdominal wound. Given her acute symptoms she came to the emergency department for further evaluation. Labs identified abnormal LFTs. CT identified a much larger bowel filled ventral recurrent incisional hernia and stone in the neck of the gallbladder. Surgery was called to evaluate. Patient seen in the emerge department patient evaluated chart reviewed. Since I last seen her patient with extensive cardiac history plan for potential valve or cardiac surgery has had a pacemaker/AICD placed. States she is abdominal cramping which is been intermittent since yesterday. Feels better currently but states she is afraid to pass gas to have a bowel movement or even cough. Last bowel movement 2 days ago. Positive flatus. No vomiting. Allergies: Coded Allergies: No Known Allergies (Unverified , 01/19/19) Medication History Scheduled Benazepril Hcl* (Benazepril Hcl*), 20 MG ORAL DAILY, (Reported) Carvedilol* (Carvedilol*), 6.25 MG ORAL EVERY 12 HOURS, (Reported) Furosemide* (Lasix*), 40 MG ORAL DAILY, (Reported) Pantoprazole* (Pantoprazole*), 40 MG ORAL DAILY, (Reported) Potassium Chloride (K-Tab ER), 20 MEQ PO DAILY, (Reported) Potassium Chloride (K-Tab ER), 20 MEQ PO DAILY, (Reported) Spironolactone (Aldactone), 25 MG ORAL DAILY, (Reported) Scheduled PRN Albuterol Sulfate* (Albuterol Sulfate Hhn*), 3 ML INH Q4H PRN for Shortness of Breath, (Reported) Zolpidem Tartrate* (Zolpidem Tartrate*), 5 MG ORAL BEDTIME PRN for Per rx protocol, (Reported) Patient History History Provided By: Patient Healthcare decision maker Resuscitation status Advanced Directive on File Past Medical/Surgical History Past Medical/Surgical History: (1) Abdominal hernia (2) SBO (small bowel obstruction) (3) Multiple sclerosis (4) Asthma (5) ABRAHAN (acute kidney injury) (6) Dehydration (7) SOB (shortness of breath) (8) Nausea & vomiting (9) Upper respiratory infection, acute (10) CHF (congestive heart failure) (11) Abdominal pain (12) Open abdominal wall wound Review of Systems Review of Symptoms General ROS: no weight loss or fever Psychological ROS: no depression or mood changes, no memory loss Ophthalmic ROS: no visual changes or eye irritation ENT ROS: no nasal congestion, hearing loss, dizziness Allergy and Immunology ROS: no allergic symptoms or urticaria Hematological and Lymphatic ROS: no swollen glands, unusual bleeding or bruising Endocrine ROS: no polyuria, polydipsia, weight changes, temperature intolerance Respiratory ROS: no cough, shortness of breath, or wheezing Cardiovascular ROS: no chest pain or dyspnea on exertion Gastrointestinal ROS: abdominal pain, bright red blood in stool. Musculoskeletal ROS: no myalgias or arthralgias Neurological ROS: no TIA or stroke symptoms Dermatological ROS: no new or changing skin lesions, rashes or pruritis Physical Exam Physical Exam General appearance: alert, cooperative, no distress, appears stated age Head: Normocephalic, without obvious abnormality, atraumatic Eyes: conjunctivae/corneas clear. PERRL, EOM's intact. Fundi benign Throat: Lips, mucosa, and tongue normal. Teeth and gums normal Neck: supple, symmetrical, trachea midline, no adenopathy, thyroid: not enlarged, symmetric, no tenderness/mass/nodules, no carotid bruit and no JVD Lungs: clear to auscultation bilaterally Heart: regular rate and rhythm, S1, S2 normal, no murmur, click, rub or gallop Abdomen: soft, mild-tender. Large ventral hernia palpable small 2 cm healing skin wound at the level of the umbilicus from prior slow healing wound requiring excessive care bowel sounds normal. No masses, no organomegaly Extremities: extremities normal, atraumatic, no cyanosis or edema Pulses: 2+ and symmetric Skin: Skin color, texture, turgor normal. No rashes or lesions Neurologic: Grossly normal Last 24 Hour Vital Signs Date Time Temp Pulse Resp B/P (MAP) Pulse Ox O2 Delivery O2 Flow Rate FiO2 05/31/19 16:36 98.4 80 18 142/85 96 Room Air 05/31/19 14:22 98.4 94 18 142/85 (104) 96 Room Air Laboratory Tests Test 05/31/19 15:00 05/31/19 15:05 White Blood Count 8.7 K/UL (4.8-10.8) Red Blood Count 3.96 M/UL (4.20-5.40) L Hemoglobin 11.4 G/DL (12.0-16.0) L Hematocrit 32.5 % (37.0-47.0) L Mean Corpuscular Volume 82 FL (80-99) Mean Corpuscular Hemoglobin 28.7 PG (27.0-31.0) Mean Corpuscular Hemoglobin Concent 35.0 G/DL (32.0-36.0) Red Cell Distribution Width 11.9 % (11.6-14.8) Platelet Count 216 K/UL (150-450) Mean Platelet Volume 7.6 FL (6.5-10.1) Neutrophils (%) (Auto) 68.1 % (45.0-75.0) Lymphocytes (%) (Auto) 20.4 % (20.0-45.0) Monocytes (%) (Auto) 7.4 % (1.0-10.0) Eosinophils (%) (Auto) 3.2 % (0.0-3.0) H Basophils (%) (Auto) 0.9 % (0.0-2.0) Prothrombin Time 9.6 SEC (9.30-11.50) Prothromb Time International Ratio 0.9 (0.9-1.1) Activated Partial Thromboplast Time 26 SEC (23-33) Sodium Level 145 MMOL/L (136-145) Potassium Level 3.2 MMOL/L (3.5-5.1) L Chloride Level 106 MMOL/L (98-107) Carbon Dioxide Level 28 MMOL/L (21-32) Anion Gap 11 mmol/L (5-15) Blood Urea Nitrogen 22 mg/dL (7-18) H Creatinine 1.0 MG/DL (0.55-1.30) Estimat Glomerular Filtration Rate > 60 mL/min (>60) Glucose Level 98 MG/DL (74-106) Calcium Level 8.8 MG/DL (8.5-10.1) Total Bilirubin 0.3 MG/DL (0.2-1.0) Aspartate Amino Transf (AST/SGOT) 60 U/L (15-37) H Alanine Aminotransferase (ALT/SGPT) 106 U/L (12-78) H Alkaline Phosphatase 180 U/L (46-116) H Total Protein 7.3 G/DL (6.4-8.2) Albumin 3.1 G/DL (3.4-5.0) L Globulin 4.2 g/dL Albumin/Globulin Ratio 0.7 (1.0-2.7) L Urine Color Pale yellow Urine Appearance Clear Urine pH 7 (4.5-8.0) Urine Specific [place] 1.010 (1.005-1.035) Urine Protein Negative (NEGATIVE) Urine Glucose (UA) Negative (NEGATIVE) Urine Ketones Negative (NEGATIVE) Urine Blood Negative (NEGATIVE) Urine Nitrite Negative (NEGATIVE) Urine Bilirubin Negative (NEGATIVE) Urine Urobilinogen Normal MG/DL (0.0-1.0) Urine Leukocyte Esterase Negative (NEGATIVE) Urine RBC 0-2 /HPF (0 - 2) Urine WBC 0 /HPF (0 - 2) Urine Squamous Epithelial Cells Few /LPF (NONE/OCC) Urine Bacteria Few /HPF (NONE) Urine HCG, Qualitative Negative (NEGATIVE) Height (Feet): 5 Height (Inches): 3.00 Weight (Pounds): 230 Medications Current Medications Medications (Trade) Dose Ordered Sig/Johnny Route PRN Reason Start Time Stop Time Status Last Admin Dose Admin Iohexol (OMNIPAQUE-300 100ml) 100 ml NOW PRN INJ Radiology Procedure 05/31/19 16:45 06/02/19 16:33 Assessment/Plan Problem List: (1) Abdominal hernia Assessment & Plan: This a 44-year-old female with enlarging incisional ventral hernia. Initially repaired approximately 2 years ago when acute episode of incarcerated incisional ventral hernia. Since his redeveloped a hernia but has been stable. Has been enlarging over time. Unsure if symptoms related to hernia or other etiology. Plan for admission. N.p.o. IV fluids Upper GI with small bowel series contrast study to evaluate for possible obstruction from hernia per slow transit versus possible complication Activity as tolerated Rx is written Thank you for allowing me to participate in patient's care will follow the recommendations ICD Codes: K46.9 - Unspecified abdominal hernia without obstruction or gangrene SNOMED: 07051691 (2) Abdominal pain Assessment & Plan: As above ICD Codes: R10.9 - Unspecified abdominal pain SNOMED: 23331395 (3) Open abdominal wall wound Assessment & Plan: Slowly healing currently 2 cm with mild oozing. Cover with OPTi foam okay to apply Thera honey ICD Codes: S31.109A - Unspecified open wound of abdominal wall, unspecified quadrant without penetration into peritoneal cavity, initial encounter SNOMED: 615749688 (4) Abnormal LFTs Assessment & Plan: Large stone noted in the neck of the gallbladder. Abnormal LFTs. Will obtain ultrasound. Trend labs ICD Codes: R94.5 - Abnormal results of liver function studies SNOMED: 443978890 Fernando Quinonez May 31, 2019 17:57
[2019-05-31] MEDS ORDERED: Morphine Sulfate 2mg/ml Inj(IV/IM USE ONLY) IVP PRN (18:00)
[2019-05-31] MEDS ORDERED: LORazepam 1mg tab ORAL PRN (18:00)
[2019-05-31] MEDS ORDERED: Milk of Magnesia 30ml Ud ORAL PRN (18:00)
[2019-05-31] MEDS ORDERED: Nitroglycerin Subl 0.4mg tab SL PRN (18:00)
--- NOTE | 2019-05-31 18:11 | Diagnostic Imaging Report ---
Clinical Indication: Abdominal pain, cramping Technique: No oral contrast utilized, per emergency room physician request IV administration nonionic contrast. Venous phase spiral acquisition obtained through the abdomen and pelvis. Multiplanar reconstructions were generated. Total dose length product 1343 mGycm. CTDIvol(s) 23 mGy. Dose reduction achieved using automated exposure control Comparison: 01/20/2019 Findings: Small fat-containing ventral hernia is seen just lateral to the inferior aspect of the rectus abdominis muscle on the left. This is also evident previously. There is a large broad-based ventral hernia which contains loops of small bowel as well as a portion of the mid transverse colon. This is also evident previously. However, on the previous study no small bowel is herniated into the defect. There is a smaller central broad-based ventral hernia located immediately caudad to the larger one which contains a loop of small bowel. 4 either these hernias, there is no evidence of strangulation or obstruction. No small bowel distention. No free or loculated intraperitoneal gas or fluid. There is an anastomotic staple line in the mid small bowel. The distal esophagus, stomach, duodenum are unremarkable. The appendix is not definitely visualized, but no findings to suggest acute appendicitis are evident. There is no evidence of diverticulosis or diverticulitis. No free or loculated intraperitoneal gas or fluid is evident. There is evidence of prior midline incision. The gallbladder contains a gallstone within the gallbladder neck. This is also evident previously. The liver, bile ducts, pancreas, spleen, adrenals, kidneys are unremarkable. No retroperitoneal or mesenteric mass or adenopathy. The uterus is absent. No pelvic mass or adenopathy. The included lung bases are clear. The heart contains a biventricular AICD. The bones are unremarkable. Impression: Multiple ventral hernias, as described. No associated obstruction or strangulation demonstrated. Largest midline ventral hernia now contains a loop of small bowel, radius containing only transverse colon Cholelithiasis Evidence of prior hysterectomy Evidence of prior small bowel surgery AICD This agrees with the preliminary interpretation provided overnight by [employer] teleradiology service. The CT scanner at [facility] is accredited by the [employer] and the scans are performed using protocols designed to limit radiation exposure to as low as reasonably achievable to attain images of sufficient resolution adequate for diagnostic evaluation.
[2019-05-31] MEDS ORDERED: ZOLOFT50 MG ORAL (18:26)
[2019-05-31] MEDS ORDERED: WELLBUTRIN XL150 MG ORAL (18:26)
[2019-05-31 18:58] VITALS: BP 138/81
--- NOTE | 2019-05-31 18:58 | NUR ---
ED Nurse Note:pt. was seen by jesse Monaco for bed placement
--- NOTE | 2019-05-31 19:03 | Emergency Room Report ---
History of Present Illness General Chief Complaint: Pain Source: Patient Present Illness HPI 44-year-old female with history of ventral hernia who is Dr. Quinonez's patient, here complaining of worsening pain at the site of the hernia. No signs of incarceration or strangulation are noted. Patient is rating the pain 10 out of 10 without radiation denying any tingling or numbness. Mild pus drainage noted at the site of the hernia at umbilicus. Patient is morbidly obese and currently has a pacemaker. Patient is in no distress, denying chest pain, shortness of breath, palpitation, nausea vomiting. Has not taken medication for symptom relief. Denies fever and chills, headache and dizziness , diarrhea, constipation, blood in stool. Preop evaluation done at [facility] today. Patient was consulted by Dr. Quinonez at bedside. Allergies: Coded Allergies: No Known Allergies (Unverified , 01/19/19) Patient History Past Medical History: see triage record Past Surgical History: unable to obtain Pertinent Family History: none Last Menstrual Period: hysterectomy Now: No Immunizations: UTD Reviewed Nursing Documentation: PMH: Agreed; PSxH: Agreed Nursing Documentation-PMH Past Medical History: No History, Except For Hx Cardiac Problems: Yes - CHF Hx Hypertension: Yes Hx Pacemaker: Yes Hx Asthma: Yes Hx Neurological Problems: No Review of Systems All Other Systems: negative except mentioned in HPI Physical Exam Vital Signs Date Time Temp Pulse Resp B/P (MAP) Pulse Ox O2 Delivery O2 Flow Rate FiO2 05/31/19 14:22 98.4 94 18 142/85 (104) 96 Room Air Sp02 EP Interpretation: reviewed, normal General Appearance: no apparent distress, alert, GCS 15, non-toxic Head: normocephalic, atraumatic Eyes: bilateral eye normal inspection, bilateral eye PERRL ENT: hearing grossly normal, normal pharynx, no angioedema, normal voice Neck: full range of motion, supple/symm/no masses Respiratory: chest non-tender, lungs clear, normal breath sounds, no rhonchi, no wheezing, speaking full sentences Cardiovascular #1: regular rate, rhythm, no edema, no murmur, normal capillary refill Gastrointestinal: no guarding, no pulsatile mass, hernia - ventral Rectal: deferred Genitourinary: normal inspection, no CVA tenderness Musculoskeletal: back normal, gait/station normal, normal range of motion, non- tender, no calf tenderness Neurologic: alert, oriented x3, responsive, motor strength/tone normal, sensory intact, speech normal Psychiatric: judgement/insight normal, memory normal, mood/affect normal, no suicidal/homicidal ideation Skin: no rash, palpation normal Lymphatic: no adenopathy Medical Decision Making PA Attestation All my diagnosis and treatment plans were reviewed ad discussed with my supervising physician Dr. Mejia Diagnostic Impression: Primary Impression: Ventral hernia Additional Impression: Cholelithiases ER Course 44-year-old female with history of ventral hernia who is Dr. Quinonez's patient, here complaining of worsening pain at the site of the hernia. No signs of incarceration or strangulation are noted. Patient is rating the pain 10 out of 10 without radiation denying any tingling or numbness. Mild pus drainage noted at the site of the hernia at umbilicus. Patient is morbidly obese and currently has a pacemaker. Patient is in no distress, denying chest pain, shortness of breath, palpitation, nausea vomiting. Has not taken medication for symptom relief. Denies fever and chills, headache and dizziness , diarrhea, constipation, blood in stool. Preop evaluation done at [facility] today. Patient was consulted by Dr. Quinonez at bedside. Ddx considered but are not limited to: appendicitis, cholecystis, gastritis, gastroenteritis, UTI, pyelonephritis, SBO, diverticulitis, influenza with GI manifestation, ND, complication with Vital signs: are WNL, pt. is afebrile H&PE are most consistent with: Ventral hernia, cholelithiasis ORDERS: abdominal CT, abdominal pain set, EKG, abdominal US ED INTERVENTIONS: NS bolus Patient was admitted with diagnosis of ventral hernia to Dr. Pierre and Dr. Quinonez under supervision of : Roberto pt stable at time of admission Dr. Quinonez already contacted Dr. Pierre and patient was accepted to be admitted today. EKG Diagnostic Results Rate: normal Rhythm: NSR ST Segments: no acute changes Other Impression No acute ST changes paced rhythm noted Chest X-Ray Diagnostic Results Chest X-Ray Diagnostic Results : Chest X-Ray Ordered: Yes # of Views/Limited/Complete: 1 View Indication: Other EP Interpretation: Yes PA Xray: Interpretation reviewed, by supervising MD, and agrees with findings. Interpretation: no consolidation, no effusion, no pneumothorax Impression: No acute disease Electronically Signed by: Doug IGLESIAS Scrradha Text Pacemaker noted CT/MRI/US Diagnostic Results CT/MRI/US Diagnostic Results : Imaging Test Ordered: Abdominal CT no contrast Impression CT ABDOMEN & PELVIS With Contrast: Compared to 01/20/19 Interval increase in size of a large ventral hernia, now containing a long segment of small bowel in addition to the previously noted transverse colon. Difficult to assess for edema due to motion artifact. Correlate for clinical findings of strangulation. No high-grade bowel obstruction. Appendix is not identified. Cholelithiasis. Renal scarring. Hysterectomy. Last Vital Signs Date Time Temp Pulse Resp B/P (MAP) Pulse Ox O2 Delivery O2 Flow Rate FiO2 05/31/19 18:58 98.4 78 18 138/81 98 Room Air Disposition: ADMITTED INPATIENT Condition: Stable Referrals: NOT CHOSEN IPA/,REFERRING (PCP) Doug Rodrigez May 31, 2019 19:03
--- NOTE | 2019-05-31 19:07 | NUR ---
HAND-OFF: Report given to Jo Ann.
--- NOTE | 2019-05-31 19:29 | NUR ---
NURSE NOTES: Received report from Jo Ann in ER. RN aware bed and room not yet available.
--- NOTE | 2019-05-31 19:30 | NUR ---
ED Nurse Note: report given to JOSSELYN Schroeder. she will call once EDWARD has set up the pt's room and is ready to receive the pt Addendum: 05/31/19 at 2001 by KIM pt is stable, inn NAD with at bedside.
[2019-05-31 20:20] VITALS: BP 131/90
--- NOTE | 2019-05-31 20:25 | NUR ---
NURSE NOTES: Received patient from ER via wheelchair, significant other at the bedside. VSS, ambulatory gait, wearing non slip socks. C/o 3/10 abd pain. Oriented to room, call light given, bed low and locked. IV access patent. Will carry out admission orders.
[2019-05-31] MEDS: Docusate 100mg cap ORAL SCH (21:00)
[2019-06-01] VITALS: BP 133/85
--- NOTE | 2019-06-01 03:55 | NUR ---
HAND-OFF: Report given to JOSSELYN Betancourt.
--- NOTE | 2019-06-01 03:58 | NUR ---
NURSE NOTES: Received report from JOSSELYN García. Patient is in bed sleeping. On room air with no signs of distress or SOB. IV intact. Bed locked and in lowest position. Call light in reach. Will continue to monitor the patient.
[2019-06-01 04:00] VITALS: BP 128/87
[2019-06-01 07:07] LABS: BASOPHILS % (AUTO) 0.9 % (0.0-2.0); EOSINOPHILS % (AUTO) 4.7 % (0.0-3.0); HEMATOCRIT 33.1 % (37.0-47.0); HEMOGLOBIN 11.1 G/DL (12.0-16.0); LYMPHOCYTES % (AUTO) 23.4 % (20.0-45.0); MEAN CORPUSCULAR VOLUME 84 FL (80-99); MONOCYTES % (AUTO) 5.6 % (1.0-10.0); NEUTROPHILS % (AUTO) 65.5 % (45.0-75.0); PLATELET COUNT 208 K/UL (150-450); RED BLOOD COUNT 3.96 M/UL (4.20-5.40); RED CELL DISTRIBUTION WIDTH 13.4 % (11.6-14.8); WHITE BLOOD COUNT 7.1 K/UL (4.8-10.8)
[2019-06-01 07:23] LABS: INR 0.9 (0.9-1.1)
--- NOTE | 2019-06-01 07:30 | NUR ---
HAND-OFF: Report given to Paula huang RN.
--- NOTE | 2019-06-01 07:35 | NUR ---
NURSE NOTES: Received patient in bed, alert and oriented x4. Not in respiratory/cardiac distress @ this time. Patient is in mild pain but no need for pain med per patient. She will call nurse when she needs pain meds. Call light within reach. IV intact, no s/s of infiltration. Bed is in lowest position. RN tried to do skin assessment but patient refused @ this time. Will follow up. Patient is on NPO for procedure.
[2019-06-01 07:47] LABS: ALANINE AMINOTRANSFERASE 104 U/L (12-78); ALBUMIN 2.9 G/DL (3.4-5.0); ALBUMIN/GLOBULIN RATIO 0.7 (1.0-2.7); ALKALINE PHOSPHATASE 136 U/L (46-116); ANION GAP 11 mmol/L (5-15); ASPARTATE AMINO TRANSFERASE 63 U/L (15-37); BILIRUBIN,TOTAL 0.3 MG/DL (0.2-1.0); BLOOD UREA NITROGEN 18 mg/dL (7-18); CALCIUM 8.6 MG/DL (8.5-10.1); CARBON DIOXIDE 27 MMOL/L (21-32); CHLORIDE 106 MMOL/L (98-107); CHOLESTEROL 178 MG/DL (< 200); HDL CHOLESTEROL 54 MG/DL (40-60); POTASSIUM 2.8 MMOL/L (3.5-5.1); SODIUM 144 MMOL/L (136-145); TRIGLYCERIDES 167 MG/DL (30-150)
[2019-06-01 08:00] VITALS: BP 102/54
--- NOTE | 2019-06-01 08:36 | NUR ---
NURSE NOTES: Bedside US is in progress.
[2019-06-01] MEDS: Docusate 100mg cap ORAL SCH ×2 (09:00→20:27)
--- NOTE | 2019-06-01 10:13 | Diagnostic Imaging Report ---
Indication: Abdominal pain, abnormal liver function tests, history of ventral hernia Technique: Yang-scale and duplex images of the upper abdomen were obtained Comparison: Findings: Exam is somewhat technically limited, due to patient body habitus and excessive overlying bowel gas. Gallbladder demonstrates a gallstone. No gallbladder wall thickening or pericholecystic fluid Sonographic Mejia's sign is negative. Common bile duct measures mm in diameter. No intrahepatic biliary ductal dilatation. Liver demonstrates increased echogenicity. No focal abnormality. It is enlarged. Portal vein and hepatic veins are patent. Pancreas is obscured by bowel gas. Spleen is unremarkable. Left kidney measures 12.7 cm in length. Right kidney measures 9.4 cm length. Both kidneys demonstrate normal echogenicity. There is no hydronephrosis. No focal abnormality . Non-aneurysmal abdominal aorta . Impression: Limited exam, as described. Note inability visualized abdominal aorta and the pancreas Cholelithiasis. Negative for dilated bile ducts Hepatomegaly. Liver demonstrates diffusely increased echogenicity, consistent with diffuse hepatocellular disease, most likely fatty change, although this is not definitely corroborated on recently performed CT scan.
--- NOTE | 2019-06-01 10:15 | NUR ---
NURSE NOTES: Patient is off the unit for x-ray small bowel with gastrografi in stable condition, denies respiratory/cardiac distress. No s/s of hypokalemia @ this time. Patient took K-dur earlier due to low potassium of 2.8.
--- NOTE | 2019-06-01 11:30 | NUR ---
NURSE NOTES: Patient came back from the procedure. V/S stable. RN received order from Dr. Quinonez to start clear liquid diet.
[2019-06-01 12:00] VITALS: BP 125/84
--- NOTE | 2019-06-01 12:30 | NUR ---
NURSE NOTES: patient wanted be disconnected from IVF since she urges to restroom.
--- NOTE | 2019-06-01 12:51 | NUR ---
RADIOLOGY DEPT., SMALL BOWEL WITH GASTROGRAFFIN EXAM COMPLETED.-P.DYE
--- NOTE | 2019-06-01 13:25 | Surgery Progress Note ---
Surgery Progress Note Subjective Additional Comments improved had BM after contrast study no n/v/f/c labs noted lft's improving likely biliary colic was etiology of pain but she felt related to hernia hernia notably larger on CT. pending final of contrast study Objective Last 24 Hour Vital Signs Date Time Temp Pulse Resp B/P (MAP) Pulse Ox O2 Delivery O2 Flow Rate FiO2 06/01/19 12:00 98.2 81 16 125/84 (98) 97 06/01/19 09:00 Room Air 06/01/19 08:00 97.9 79 18 102/54 (70) 100 06/01/19 04:00 98.3 90 18 128/87 (101) 95 06/01/19 00:00 98.5 95 22 133/85 (101) 95 05/31/19 22:02 Room Air 05/31/19 20:20 98.3 93 22 131/90 (104) 95 05/31/19 18:58 98.4 78 18 138/81 98 Room Air 05/31/19 16:36 98.4 80 18 142/85 96 Room Air 05/31/19 14:22 98.4 94 18 142/85 (104) 96 Room Air I&O Intake and Output 05/31/19 06/01/19 19:00 07:00 Intake Total 50 ml Balance 50 ml Intake IV Total 50 ml # Voids 2 3 Laboratory Tests Test 05/31/19 15:00 05/31/19 15:05 06/01/19 05:20 White Blood Count 8.7 K/UL (4.8-10.8) 7.1 K/UL (4.8-10.8) Red Blood Count 3.96 M/UL (4.20-5.40) L 3.96 M/UL (4.20-5.40) L Hemoglobin 11.4 G/DL (12.0-16.0) L 11.1 G/DL (12.0-16.0) L Hematocrit 32.5 % (37.0-47.0) L 33.1 % (37.0-47.0) L Mean Corpuscular Volume 82 FL (80-99) 84 FL (80-99) Mean Corpuscular Hemoglobin 28.7 PG (27.0-31.0) 28.1 PG (27.0-31.0) Mean Corpuscular Hemoglobin Concent 35.0 G/DL (32.0-36.0) 33.6 G/DL (32.0-36.0) Red Cell Distribution Width 11.9 % (11.6-14.8) 13.4 % (11.6-14.8) Platelet Count 216 K/UL (150-450) 208 K/UL (150-450) Mean Platelet Volume 7.6 FL (6.5-10.1) 7.0 FL (6.5-10.1) Neutrophils (%) (Auto) 68.1 % (45.0-75.0) 65.5 % (45.0-75.0) Lymphocytes (%) (Auto) 20.4 % (20.0-45.0) 23.4 % (20.0-45.0) Monocytes (%) (Auto) 7.4 % (1.0-10.0) 5.6 % (1.0-10.0) Eosinophils (%) (Auto) 3.2 % (0.0-3.0) H 4.7 % (0.0-3.0) H Basophils (%) (Auto) 0.9 % (0.0-2.0) 0.9 % (0.0-2.0) Prothrombin Time 9.6 SEC (9.30-11.50) 10.0 SEC (9.30-11.50) Prothromb Time International Ratio 0.9 (0.9-1.1) 0.9 (0.9-1.1) Activated Partial Thromboplast Time 26 SEC (23-33) 26 SEC (23-33) Sodium Level 145 MMOL/L (136-145) 144 MMOL/L (136-145) Potassium Level 3.2 MMOL/L (3.5-5.1) L 2.8 MMOL/L (3.5-5.1) L Chloride Level 106 MMOL/L (98-107) 106 MMOL/L (98-107) Carbon Dioxide Level 28 MMOL/L (21-32) 27 MMOL/L (21-32) Anion Gap 11 mmol/L (5-15) 11 mmol/L (5-15) Blood Urea Nitrogen 22 mg/dL (7-18) H 18 mg/dL (7-18) Creatinine 1.0 MG/DL (0.55-1.30) 1.0 MG/DL (0.55-1.30) Estimat Glomerular Filtration Rate > 60 mL/min (>60) > 60 mL/min (>60) Glucose Level 98 MG/DL (74-106) 94 MG/DL (74-106) Calcium Level 8.8 MG/DL (8.5-10.1) 8.6 MG/DL (8.5-10.1) Total Bilirubin 0.3 MG/DL (0.2-1.0) 0.3 MG/DL (0.2-1.0) Aspartate Amino Transf (AST/SGOT) 60 U/L (15-37) H 63 U/L (15-37) H Alanine Aminotransferase (ALT/SGPT) 106 U/L (12-78) H 104 U/L (12-78) H Alkaline Phosphatase 180 U/L (46-116) H 136 U/L (46-116) H Total Protein 7.3 G/DL (6.4-8.2) 6.9 G/DL (6.4-8.2) Albumin 3.1 G/DL (3.4-5.0) L 2.9 G/DL (3.4-5.0) L Globulin 4.2 g/dL 4.0 g/dL Albumin/Globulin Ratio 0.7 (1.0-2.7) L 0.7 (1.0-2.7) L Urine Color Pale yellow Urine Appearance Clear Urine pH 7 (4.5-8.0) Urine Specific [place] 1.010 (1.005-1.035) Urine Protein Negative (NEGATIVE) Urine Glucose (UA) Negative (NEGATIVE) Urine Ketones Negative (NEGATIVE) Urine Blood Negative (NEGATIVE) Urine Nitrite Negative (NEGATIVE) Urine Bilirubin Negative (NEGATIVE) Urine Urobilinogen Normal MG/DL (0.0-1.0) Urine Leukocyte Esterase Negative (NEGATIVE) Urine RBC 0-2 /HPF (0 - 2) Urine WBC 0 /HPF (0 - 2) Urine Squamous Epithelial Cells Few /LPF (NONE/OCC) Urine Bacteria Few /HPF (NONE) Urine HCG, Qualitative Negative (NEGATIVE) Hemoglobin A1c 5.7 % (4.3-6.0) Pro-B-Type Natriuretic Peptide 394 pg/mL (0-125) H Triglycerides Level 167 MG/DL (30-150) H Cholesterol Level 178 MG/DL (< 200) LDL Cholesterol 100 mg/dL (<100) HDL Cholesterol 54 MG/DL (40-60) Cholesterol/HDL Ratio 3.3 (3.3-4.4) Thyroid Stimulating Hormone (TSH) 1.340 uiU/mL (0.358-3.740) Plan Problems: (1) Abdominal hernia Assessment & Plan: This a 44-year-old female with enlarging incisional ventral hernia. Initially repaired approximately 2 years ago when acute episode of incarcerated incisional ventral hernia. Since his redeveloped a hernia but has been stable. Has been enlarging over time. Unsure if symptoms related to hernia or other etiology. Plan for admission. N.p.o. IV fluids Upper GI with small bowel series contrast study to evaluate for possible obstruction from hernia per slow transit versus possible complication improved had BM after contrast study no n/v/f/c labs noted lft's improving likely biliary colic was etiology of pain but she felt related to hernia hernia notably larger on CT. pending final of contrast study Activity as tolerated Rx is written Thank you for allowing me to participate in patient's care will follow the recommendations (2) Abdominal pain Assessment & Plan: As above (3) Open abdominal wall wound Assessment & Plan: Slowly healing currently 2 cm with mild oozing. Cover with OPTi foam okay to apply Thera honey (4) Abnormal LFTs Assessment & Plan: Large stone noted in the neck of the gallbladder. Abnormal LFTs. Will obtain ultrasound. Trend labs Fernando Quinonez Jun 01, 2019 13:25
--- NOTE | 2019-06-01 15:24 | NUR ---
CASE MANAGEMENT:REVIEW 44 YR OLD FEMALE PRESENTED TO ER CC: PAIN. PUS NOTED AT SITE OF HERNIA AT UMBILICUS SI: VENTRAL HERNIA. CHOLELITHIASIS 98.4 94 18 142/85 96% ON RA K-3.2 IS; CT ABD/PELVIS IVF@50/HR : TO MED/SURG IS: SMALL BOWEL W/GASTROGRAFIN 06/01/19 SI: K-2.8 IS: 40MEQ KCL : MED/SURG
[2019-06-01 16:00] VITALS: BP_SYST 115; BP_DIAS 4; BP_DIAS 54
--- NOTE | 2019-06-01 16:00 | History and Physical Report ---
DATE OF ADMISSION: 05/31/2019 CHIEF COMPLAINT: Abdominal pain. HISTORY OF PRESENT ILLNESS: The patient is a 44-year-old female well known to me. She has a history of MS and congestive heart failure. She has a history of AICD and pacemaker. She has a prior history of a hernia repair. She had a small wound dehiscence and has been treated as an outpatient by her surgeon. She presents with worsening abdominal pain and a recurrent hernia, and is now admitted for possible surgical evaluation. She is otherwise without complaints. She denies any fevers or chills. She denies any chest pain. She has had no shortness of breath. No orthopnea or PND. PAST MEDICAL HISTORY: As above. PAST SURGICAL HISTORY: Includes prior hernia repair. CURRENT MEDICATIONS: Reconciled and reviewed. ALLERGIES: None. FAMILY HISTORY: None. SOCIAL HISTORY: There is no known history of tobacco, ethanol, or drugs. REVIEW OF SYSTEMS: GENERAL: No fever or chills. HEENT: No headaches or visual changes. CARDIOPULMONARY: No chest pain or shortness of breath. GASTROINTESTINAL: Positive abdominal pain, but no nausea, no vomiting, and no diarrhea. GENITOURINARY: No urgency or frequency. MUSCULOSKELETAL: No joint pain or swelling. NEUROLOGICAL: No evidence of seizures. PHYSICAL EXAMINATION: VITAL SIGNS: Temperature 98, pulse 90, respirations 18, and blood pressure 128/87. GENERAL: The patient is well developed, in no apparent distress. HEART: Regular rate and rhythm. LUNGS: Clear. ABDOMEN: Soft, nontender, and nondistended. She is somewhat obese. There is a small 1 cm open wound in the lower abdominal area. The base is clean and pink. EXTREMITIES: No clubbing, cyanosis, or edema. LABORATORY DATA: White count 8, hemoglobin 11, hematocrit 32, and platelets 216,000. Sodium 145, potassium 3.2, chloride 106, bicarb 28, BUN 22, and creatinine 1. AST was 60, ALT 106, and alkaline phosphatase 180. UA was clear. CT scan done of the abdomen shows increasing size of large ventral hernia, now containing a long segment of small bowel, but no obstruction. ASSESSMENT: This is a pleasant female with a history of multiple sclerosis, congestive heart failure, AICD, and prior abdominal surgery, admitted with complaints of worsening abdominal pain possibly secondary to a large ventral hernia. PLAN: 1. Continue current cardiac regimen. 2. Surgical and Cardiology evaluations. 3. Replace electrolytes. 4. Further plan of care will be determined based on the patient's clinical course and discussion with consulting physicians. Butch Morrissey M.D. DR: CHAZ JOB#: [id number] CC:
--- NOTE | 2019-06-01 16:00 | NUR ---
NURSE NOTES: patient stated that she moved brownish bowel movement x9 so far since small bowel x-ray. Rn spoke to Dr. Quinonez. MD is aware with no new order.Will continue to monitor. Patient hydrates by herself. No s/s of dehydration and tolerated well with her food. Will continue to monitor.
--- NOTE | 2019-06-01 16:46 | Cardiology Report ---
APPROVED REPORT EKG Measurement Heart [id number] ND [id number] [id number] sinus vpacing
--- NOTE | 2019-06-01 16:57 | Diagnostic Imaging Report ---
Indication: Abdominal pain, abdominal distention, abnormal recent CT scan Technique: Patient ingested water-soluble contrast. Serial images obtained over the abdomen Comparison: 03/31/2018 Findings: Diaper Machine Tender film demonstrates contrast within the bladder from recent CT scan. Normal caliber colon. There are mildly prominent small bowel loops in the left lower quadrant. After contrast ingestion, there is rapid transit of contrast throughout the small bowel. Small bowel is normal in caliber, demonstrates normal mucosal pattern. On the one-hour image, contrast is seen within the ascending colon Impression: Negative. No evidence of small bowel obstruction
--- NOTE | 2019-06-01 19:15 | NUR ---
HAND-OFF: Report given to Raquel.
[2019-06-01 20:00] VITALS: BP 139/85
[2019-06-01] MEDS ORDERED: Carvedilol 6.25mg Tab ORAL SCH (23:00)
--- NOTE | 2019-06-01 23:00 | Progress Note ---
DATE: 06/01/2019 CARDIOLOGY PROGRESS NOTE SUBJECTIVE: Abdominal pain is slightly better. Imaging studies in process. Surgical plan, pending. No chest pain. No shortness of breath. OBJECTIVE: VITAL SIGNS: Blood pressure 139/85, pulse 92, respirations 19. LUNGS: Clear. SKIN: ICD pocket site with no warmth or redness. CARDIAC: Regular. Normal S1, S2 with no third heart sound. ABDOMEN: With less erythema and warmth, but dandy tender above the umbilicus. EXTREMITIES: With trace edema. LABORATORY DATA: Notable for potassium 2.8, BUN 18, and creatinine 1. Elevated liver function studies. Pro-natriuretic peptide 394. IMPRESSION: 1. Transaminitis. 2. Possible choledocholithiasis. 3. Acute on chronic systolic congestive heart failure. 4. Hypokalemia. PLAN: 1. surgeon. 2. Follow up imaging studies and replace potassium. 3. Check magnesium. 4. Advance anti-failure regimen. 5. We ordered Aldactone for potassium-sparing benefits long-term. Jose Alfredo Mcfadden M.D. DR: ILANA JOB#: [id number] CC:
--- NOTE | 2019-06-01 23:03 | NUR ---
NURSE NOTES: Patient accidentally pulled IV out. Dr Ghanshyam jamilwledged and OK to discontinue IV access.
--- NOTE | 2019-06-01 23:15 | Consultation ---
DATE OF CONSULTATION: 06/01/2019 CARDIOLOGY CONSULTATION CONSULTING PHYSICIAN: Jose Alfredo Mcfadden M.D. REQUESTING PHYSICIAN: 1. Butch Morrissey M.D. 2. 3. Fernando Quinonez M.D. REASON FOR CONSULTATION: Cardiomyopathy with cardiac defibrillator. HISTORY OF PRESENT ILLNESS: This is a 44-year-old female. She was admitted to the hospital because of open abdominal wound that has had some increasing drainage with evidence of impacted gallbladder stone and fluid-filled hernia on CT scan prompting hospitalization. The patient has a known history of nonischemic cardiomyopathy with cardiac defibrillator. Her device never shocked her. She recently had it interrogated as an outpatient with primary music mixer in the [facility]. She denies any recent change in her functional status other than the symptoms related to her abdominal complaints. She denies palpitations, dizziness, chest pain, shortness of breath, and has had occasional mild leg edema bilaterally. PAST MEDICAL HISTORY: Include recurring hypokalemia, protein-calorie malnutrition, chronic systolic congestive heart failure, nonischemic cardiomyopathy, cardiac defibrillator, prior hysterectomy, prior hernia repair, multiple sclerosis. MEDICATIONS: Reviewed and reconciled. ALLERGIES: None known. SOCIAL HISTORY: Negative for smoking, alcohol, or substance abuse. REVIEW OF SYSTEMS: A 10-point review of systems performed. All systems negative other than noted above. PHYSICAL EXAMINATION: VITAL SIGNS: Blood pressure 138/81, pulse 78, respiratory rate 18, afebrile. NECK: Jugular venous pressure normal. Oropharynx clear. LUNGS: Clear. CARDIAC: Regular rhythm and rate. Normal S1 and S2 with a 1/6 systolic murmur at lower left sternal border. ABDOMEN: Soft, slightly distended. There is tenderness and warmth above the umbilicus with some fluctuance. EXTREMITIES: There is trace pitting lower extremity edema. LABORATORY DATA: Notable for white count is 8.7, hemoglobin 11.4. Potassium 3.2, BUN 22, creatinine 1. AST and ALT elevated at 60 and 106 with alkaline phosphatase of 180. Albumin 3.1. IMPRESSION: 1. Possible choledocholithiasis. 2. Possible fluid collection. 3. Prior hernia repair 4. Nonischemic cardiomyopathy. 5. Hypokalemia. 6. Chronic systolic congestive heart failure. PLAN: NPO per surgery. Potassium replacement. Followup electrolytes studies including magnesium level. Antimicrobials per surgeon. Medication regimen reviewed for drugs that may cause hepatic toxicity and none were detected. Titrate anti-failure regimen. Add Aldactone for potassium-sparing benefits. Jose Alfredo Mcfadden M.D. DR: Shey JOB#: [id number] CC:
[2019-06-02 00:25] VITALS: BP 125/89
[2019-06-02 04:00] VITALS: BP 133/86
[2019-06-02 06:20] LABS: BASOPHILS % (AUTO) 0.8 % (0.0-2.0); EOSINOPHILS % (AUTO) 3.8 % (0.0-3.0); HEMATOCRIT 31.7 % (37.0-47.0); HEMOGLOBIN 10.6 G/DL (12.0-16.0); LYMPHOCYTES % (AUTO) 23.8 % (20.0-45.0); MEAN CORPUSCULAR VOLUME 84 FL (80-99); MONOCYTES % (AUTO) 7.7 % (1.0-10.0); NEUTROPHILS % (AUTO) 63.9 % (45.0-75.0); PLATELET COUNT 203 K/UL (150-450); RED BLOOD COUNT 3.77 M/UL (4.20-5.40); RED CELL DISTRIBUTION WIDTH 13.4 % (11.6-14.8); WHITE BLOOD COUNT 6.2 K/UL (4.8-10.8)
[2019-06-02 06:49] LABS: ALANINE AMINOTRANSFERASE 106 U/L (12-78); ALBUMIN 2.7 G/DL (3.4-5.0); ALBUMIN/GLOBULIN RATIO 0.7 (1.0-2.7); ALKALINE PHOSPHATASE 163 U/L (46-116); ANION GAP 8 mmol/L (5-15); ASPARTATE AMINO TRANSFERASE 57 U/L (15-37); BILIRUBIN,TOTAL 0.2 MG/DL (0.2-1.0); BLOOD UREA NITROGEN 18 mg/dL (7-18); CALCIUM 8.6 MG/DL (8.5-10.1); CARBON DIOXIDE 28 MMOL/L (21-32); CHLORIDE 108 MMOL/L (98-107); CREATININE 0.9 MG/DL (0.55-1.30); POTASSIUM 3.2 MMOL/L (3.5-5.1); SODIUM 144 MMOL/L (136-145)
--- NOTE | 2019-06-02 07:11 | NUR ---
HAND-OFF: Report given to JOSSELYN Potts.
--- NOTE | 2019-06-02 07:20 | NUR ---
nurse notes received patient in bed, patient awake,alert, oriented x4,no sign of distress, No IV access noted plan of care was discussed verbalized understanding 4 P's in progress call light w/n reach .maikol lynch
[2019-06-02 08:00] VITALS: BP 114/52
--- NOTE | 2019-06-02 08:02 | General Progress Note ---
Assessment/Plan Problem List: (1) SOB (shortness of breath) ICD Codes: R06.02 - Shortness of breath SNOMED: 985606919 (2) Dehydration ICD Codes: E86.0 - Dehydration SNOMED: 40975545 (3) Cholelithiases ICD Codes: K80.20 - Calculus of gallbladder without cholecystitis without obstruction SNOMED: 429424459 (4) Ventral hernia ICD Codes: K43.9 - Ventral hernia without obstruction or gangrene SNOMED: 532942056 (5) Abdominal hernia ICD Codes: K46.9 - Unspecified abdominal hernia without obstruction or gangrene SNOMED: 76018840 Status: stable Assessment/Plan: cont current rx pain meds as needed cont cardiac meds dc per surgery Subjective ROS Limited/Unobtainable: No Constitutional: Reports: no symptoms HEENT: Reports: no symptoms Cardiovascular: Reports: no symptoms Respiratory: Reports: no symptoms Gastrointestinal/Abdominal: Reports: no symptoms Genitourinary: Reports: no symptoms Neurologic/Psychiatric: Reports: no symptoms Endocrine: Reports: no symptoms Hematologic/Lymphatic: Reports: no symptoms Allergies: Coded Allergies: No Known Allergies (Unverified , 01/19/19) All Systems: reviewed and negative except above Subjective no complaints. iv out. pt refusing replacement. US and SBFT normal. pain better Objective Last 24 Hour Vital Signs Date Time Temp Pulse Resp B/P (MAP) Pulse Ox O2 Delivery O2 Flow Rate FiO2 06/02/19 04:00 98.7 97 20 133/86 (102) 97 06/02/19 00:25 98.6 101 19 125/89 (101) 97 06/01/19 23:08 92 139/85 06/01/19 21:08 Room Air 06/01/19 20:00 98.8 92 19 139/85 (103) 97 06/01/19 16:00 97.2 80 20 115/54 (74) 95 06/01/19 12:00 98.2 81 16 125/84 (98) 97 06/01/19 09:00 Room Air 06/01/19 08:00 97.9 79 18 102/54 (70) 100 Intake and Output 06/01/19 06/02/19 18:59 06:59 Intake Total 800 ml Balance 800 ml Intake Oral 600 ml IV Total 200 ml # Voids 3 2 # Bowel Movements 9 Laboratory Tests 06/02/19 05:06: White Blood Count 6.2, Red Blood Count 3.77L, Hemoglobin 10.6L, Hematocrit 31.7L , Mean Corpuscular Volume 84, Mean Corpuscular Hemoglobin 28.2, Mean Corpuscular Hemoglobin Concent 33.6, Red Cell Distribution Width 13.4, Platelet Count 203, Mean Platelet Volume 7.3, Neutrophils (%) (Auto) 63.9, Lymphocytes (% ) (Auto) 23.8, Monocytes (%) (Auto) 7.7, Eosinophils (%) (Auto) 3.8H, Basophils (%) (Auto) 0.8, Sodium Level 144, Potassium Level 3.2L, Chloride Level 108H, Carbon Dioxide Level 28, Anion Gap 8, Blood Urea Nitrogen 18, Creatinine 0.9, Estimat Glomerular Filtration Rate > 60, Glucose Level 125H, Calcium Level 8.6, Magnesium Level 1.8, Total Bilirubin 0.2, Aspartate Amino Transf (AST/SGOT) 57H , Alanine Aminotransferase (ALT/SGPT) 106H, Alkaline Phosphatase 163H, Pro-B- Type Natriuretic Peptide 144H, Total Protein 6.7, Albumin 2.7L, Globulin 4.0, Albumin/Globulin Ratio 0.7L, Thyroid Stimulating Hormone (TSH) 1.382 Height (Feet): 5 Height (Inches): 3.00 Weight (Pounds): 228 General Appearance: WD/WN, alert Neck: supple Cardiovascular: normal rate Respiratory/Chest: chest wall non-tender, lungs clear Abdomen: normal bowel sounds, non tender, soft, no organomegaly Edema: no edema noted Arm (L), no edema noted Arm (R), no edema noted Leg (L), no edema noted Leg (R), no edema noted Pedal (L), no edema noted Pedal (R), no edema noted Generalized Edema: trace edema Neurologic: oriented x 3 Butch Morrissey MD Jun 02, 2019 08:02
[2019-06-02] MEDS: Docusate 100mg cap ORAL SCH ×2 (08:20→20:23)
[2019-06-02] MEDS: Spironolactone 25mg tab ORAL SCH (08:20)
[2019-06-02] MEDS ORDERED: Carvedilol 6.25mg Tab ORAL SCH (09:00)
[2019-06-02 12:05] VITALS: BP 110/75
[2019-06-02 16:00] VITALS: BP 123/79
--- NOTE | 2019-06-02 16:22 | NUR ---
CASE MANAGEMENT:REVIEW 06/02/19 SI: DEHYDRATION. CHOLELITHIASIS SOB. VENTRAL HERNIA 97.9 85 20 110/75 98% ON RA H/H-10.6/31.7 K-3.2 AST/ALT+57/106 IS: ALDACTONE PO QD COREG PO Q12 LOTENSIN PO QD PEPCID PO QD : MED/SURG 4 EAST DCP: FROM HOME
--- NOTE | 2019-06-02 19:21 | NUR ---
NURSE NOTES: Received patient in bed, awake, alert, oriented, ambulatory with stable gate, no IV access, MD is aware. No acute distress noted, call light is within reach, bed is lowered, locked, alarm is on. Will continue to monitor for comfort and safety.
--- NOTE | 2019-06-02 19:25 | NUR ---
HAND-OFF: Report given to JOSSELYN Rees Resting comfortably in bed, no sign of distress josselyn lynch
[2019-06-02 20:00] VITALS: BP 149/87
[2019-06-02] MEDS: Carvedilol 12.5mg tab ORAL SCH (20:23)
--- NOTE | 2019-06-02 20:37 | Surgery Progress Note ---
Surgery Progress Note Subjective Symptoms: improved, tolerating diet, voiding well, passing flatus, BM Additional Comments Overall much improved. Tolerating diet. Multiple movements. Discharge planning for tomorrow. Objective Last 24 Hour Vital Signs Date Time Temp Pulse Resp B/P (MAP) Pulse Ox O2 Delivery O2 Flow Rate FiO2 06/02/19 20:23 78 149/78 06/02/19 16:00 97.3 80 19 123/79 (94) 98 06/02/19 12:05 97.9 85 20 110/75 (87) 98 06/02/19 08:37 Room Air 06/02/19 08:20 133/86 06/02/19 08:20 97 133/86 06/02/19 08:00 97.2 73 20 114/52 (72) 97 06/02/19 04:00 98.7 97 20 133/86 (102) 97 06/02/19 00:25 98.6 101 19 125/89 (101) 97 06/01/19 23:08 92 139/85 06/01/19 21:08 Room Air I&O Intake and Output 06/01/19 06/02/19 19:00 07:00 Intake Total 750 ml Balance 750 ml Intake Oral 600 ml IV Total 150 ml # Voids 3 2 # Bowel Movements 9 Dressing: dry Wound: clean Cardiovascular: RSR Respiratory: clear Abdomen: soft, flat, non-tender, present bowel sounds, non-distended Extremities: no edema, no tenderness, no cyanosis Laboratory Tests Test 06/02/19 05:06 White Blood Count 6.2 K/UL (4.8-10.8) Red Blood Count 3.77 M/UL (4.20-5.40) L Hemoglobin 10.6 G/DL (12.0-16.0) L Hematocrit 31.7 % (37.0-47.0) L Mean Corpuscular Volume 84 FL (80-99) Mean Corpuscular Hemoglobin 28.2 PG (27.0-31.0) Mean Corpuscular Hemoglobin Concent 33.6 G/DL (32.0-36.0) Red Cell Distribution Width 13.4 % (11.6-14.8) Platelet Count 203 K/UL (150-450) Mean Platelet Volume 7.3 FL (6.5-10.1) Neutrophils (%) (Auto) 63.9 % (45.0-75.0) Lymphocytes (%) (Auto) 23.8 % (20.0-45.0) Monocytes (%) (Auto) 7.7 % (1.0-10.0) Eosinophils (%) (Auto) 3.8 % (0.0-3.0) H Basophils (%) (Auto) 0.8 % (0.0-2.0) Sodium Level 144 MMOL/L (136-145) Potassium Level 3.2 MMOL/L (3.5-5.1) L Chloride Level 108 MMOL/L (98-107) H Carbon Dioxide Level 28 MMOL/L (21-32) Anion Gap 8 mmol/L (5-15) Blood Urea Nitrogen 18 mg/dL (7-18) Creatinine 0.9 MG/DL (0.55-1.30) Estimat Glomerular Filtration Rate > 60 mL/min (>60) Glucose Level 125 MG/DL (74-106) H Calcium Level 8.6 MG/DL (8.5-10.1) Magnesium Level 1.8 MG/DL (1.8-2.4) Total Bilirubin 0.2 MG/DL (0.2-1.0) Aspartate Amino Transf (AST/SGOT) 57 U/L (15-37) H Alanine Aminotransferase (ALT/SGPT) 106 U/L (12-78) H Alkaline Phosphatase 163 U/L (46-116) H Pro-B-Type Natriuretic Peptide 144 pg/mL (0-125) H Total Protein 6.7 G/DL (6.4-8.2) Albumin 2.7 G/DL (3.4-5.0) L Globulin 4.0 g/dL Albumin/Globulin Ratio 0.7 (1.0-2.7) L Thyroid Stimulating Hormone (TSH) 1.382 uiU/mL (0.358-3.740) Plan Problems: (1) Abdominal hernia Assessment & Plan: This a 44-year-old female with enlarging incisional ventral hernia. Initially repaired approximately 2 years ago when acute episode of incarcerated incisional ventral hernia. Since his redeveloped a hernia but has been stable. Has been enlarging over time. Unsure if symptoms related to hernia or other etiology. Plan for admission. N.p.o. IV fluids Upper GI with small bowel series contrast study to evaluate for possible obstruction from hernia per slow transit versus possible complication improved had BM after contrast study no n/v/f/c labs noted lft's improving likely biliary colic was etiology of pain but she felt related to hernia hernia notably larger on CT. pending final of contrast study Activity as tolerated Rx is written Thank you for allowing me to participate in patient's care will follow the recommendations (2) Abdominal pain Assessment & Plan: As above (3) Open abdominal wall wound Assessment & Plan: Slowly healing currently 2 cm with mild oozing. Cover with OPTi foam okay to apply Thera honey (4) Abnormal LFTs Assessment & Plan: Large stone noted in the neck of the gallbladder. Abnormal LFTs. Will obtain ultrasound. Trend labs Ultrasound noted and stable. LFTs stable trending down. Exam benign. Additional Comments Discharge planning with outpatient follow-up for repeat LFTs in 2 weeks. Can follow-up with primary care physician as well as myself. Fernando Quinonez Jun 02, 2019 20:37
[2019-06-03] VITALS: BP 141/86
--- NOTE | 2019-06-03 00:30 | Progress Note ---
DATE: 06/02/2019 CARDIOLOGY PROGRESS NOTE SUBJECTIVE: The patient has no chest pain or shortness of breath. Pain control has improved. OBJECTIVE: VITAL SIGNS: Blood pressure 133/86, pulse 97, and respirations 20. LUNGS: Clear. CARDIAC: Regular. Normal S1. Paradoxically split S2. A 1/6 systolic apical murmur. ABDOMEN: Soft. Still with tenderness, redness, and warmth over umbilicus. LABORATORY DATA: Ultrasound and small bowel follow-through studies were normal. White count 6 and hemoglobin 10.6. Magnesium 1.8. Potassium today is 3.2. Albumin 2.7. IMPRESSION: 1. Hernia. 2. Possible fluid collection with cellulitis. 3. Nonischemic cardiomyopathy. 4. Chronic diastolic congestive heart failure. 5. Secondary sinus tachycardia. 6. Hypertension and hypertensive heart disease. 7. Hypokalemia. PLAN: 1. Continue medications as adjusted yesterday including Aldactone and carvedilol with titration based on clinical parameters. 2. Maintain angiotensin-converting enzyme inhibitor as well. 3. Surgical follow up. 4. Potassium replacement. 5. Empiric magnesium. Jose Alfredo Mcfadden M.D. DR: BRODY JOB#: [id number] CC:
[2019-06-03 04:00] VITALS: BP 139/89
[2019-06-03] MEDS: Mylanta II UD 30ml ORAL PRN ×2 (05:20→08:21)
[2019-06-03 06:01] LABS: BASOPHILS % (AUTO) 0.7 % (0.0-2.0); EOSINOPHILS % (AUTO) 3.4 % (0.0-3.0); HEMATOCRIT 32.7 % (37.0-47.0); LYMPHOCYTES % (AUTO) 25.9 % (20.0-45.0); MEAN CORPUSCULAR VOLUME 85 FL (80-99); MONOCYTES % (AUTO) 8.3 % (1.0-10.0); NEUTROPHILS % (AUTO) 61.7 % (45.0-75.0); PLATELET COUNT 210 K/UL (150-450); RED BLOOD COUNT 3.85 M/UL (4.20-5.40); RED CELL DISTRIBUTION WIDTH 13.9 % (11.6-14.8); WHITE BLOOD COUNT 6.1 K/UL (4.8-10.8)
[2019-06-03 06:14] LABS: ALANINE AMINOTRANSFERASE 93 U/L (12-78); ALBUMIN 2.8 G/DL (3.4-5.0); ALBUMIN/GLOBULIN RATIO 0.7 (1.0-2.7); ALKALINE PHOSPHATASE 164 U/L (46-116); ANION GAP 6 mmol/L (5-15); ASPARTATE AMINO TRANSFERASE 50 U/L (15-37); BILIRUBIN,TOTAL 0.2 MG/DL (0.2-1.0); BLOOD UREA NITROGEN 18 mg/dL (7-18); CALCIUM 8.4 MG/DL (8.5-10.1); CARBON DIOXIDE 27 MMOL/L (21-32); CHLORIDE 109 MMOL/L (98-107); POTASSIUM 3.7 MMOL/L (3.5-5.1); SODIUM 141 MMOL/L (136-145)
--- NOTE | 2019-06-03 07:07 | NUR ---
HAND-OFF: Report given to Katlyn ARCOS.
--- NOTE | 2019-06-03 07:29 | NUR ---
nurse notes received patient in bed sleeping no sign of distress,denies pain or discomfort, No IV access noted plan of care was discussed verbalized understanding 4 P's in progress call light w/n erlinda .maikol lynch
[2019-06-03 08:00] VITALS: BP 118/77
[2019-06-03] MEDS: Carvedilol 12.5mg tab ORAL SCH (08:19)
[2019-06-03] MEDS: Docusate 100mg cap ORAL SCH (08:19)
[2019-06-03] MEDS: Spironolactone 25mg tab ORAL SCH (08:19)
[2019-06-03 08:20] VITALS: BP 118/77
[2019-06-03] MEDS ORDERED: Magnesium Oxide 400mg tab ORAL SCH (09:00)
--- NOTE | 2019-06-03 10:54 | NUR ---
NURSE NOTES Discharge to home obtained, patient agreed with the plan of care, discharge instruction packet handed to patient discharge instruction teaching done all questions answered verbalized understanding 1100 discharge in stable condition with all belongings taken , discharged via private car accompanied by family maikol lynch
--- NOTE | 2019-06-03 16:44 | Surgery Progress Note ---
Surgery Progress Note Subjective Symptoms: improved, tolerating diet, voiding well, passing flatus, BM Objective Last 24 Hour Vital Signs Date Time Temp Pulse Resp B/P (MAP) Pulse Ox O2 Delivery O2 Flow Rate FiO2 06/03/19 08:20 118/77 06/03/19 08:19 90 118/77 06/03/19 08:17 Room Air 06/03/19 08:00 98.9 90 18 118/77 (91) 98 06/03/19 04:00 98.6 80 17 139/89 (106) 95 06/03/19 00:00 98.4 74 19 141/86 (104) 97 06/02/19 21:22 Room Air 06/02/19 20:23 78 149/78 06/02/19 20:00 98.3 78 17 149/87 (107) 97 I&O Intake and Output 06/02/19 06/03/19 19:00 07:00 Intake Total 780 ml 480 ml Balance 780 ml 480 ml Intake Oral 780 ml 480 ml # Voids 1 4 Cardiovascular: RSR Respiratory: clear Abdomen: soft, non-tender, present bowel sounds, non-distended Extremities: no edema, no tenderness, no cyanosis Laboratory Tests Test 06/03/19 05:30 White Blood Count 6.1 K/UL (4.8-10.8) Red Blood Count 3.85 M/UL (4.20-5.40) L Hemoglobin 11.0 G/DL (12.0-16.0) L Hematocrit 32.7 % (37.0-47.0) L Mean Corpuscular Volume 85 FL (80-99) Mean Corpuscular Hemoglobin 28.5 PG (27.0-31.0) Mean Corpuscular Hemoglobin Concent 33.6 G/DL (32.0-36.0) Red Cell Distribution Width 13.9 % (11.6-14.8) Platelet Count 210 K/UL (150-450) Mean Platelet Volume 6.7 FL (6.5-10.1) Neutrophils (%) (Auto) 61.7 % (45.0-75.0) Lymphocytes (%) (Auto) 25.9 % (20.0-45.0) Monocytes (%) (Auto) 8.3 % (1.0-10.0) Eosinophils (%) (Auto) 3.4 % (0.0-3.0) H Basophils (%) (Auto) 0.7 % (0.0-2.0) Sodium Level 141 MMOL/L (136-145) Potassium Level 3.7 MMOL/L (3.5-5.1) Chloride Level 109 MMOL/L (98-107) H Carbon Dioxide Level 27 MMOL/L (21-32) Anion Gap 6 mmol/L (5-15) Blood Urea Nitrogen 18 mg/dL (7-18) Creatinine 1.0 MG/DL (0.55-1.30) Estimat Glomerular Filtration Rate > 60 mL/min (>60) Glucose Level 116 MG/DL (74-106) H Calcium Level 8.4 MG/DL (8.5-10.1) L Total Bilirubin 0.2 MG/DL (0.2-1.0) Aspartate Amino Transf (AST/SGOT) 50 U/L (15-37) H Alanine Aminotransferase (ALT/SGPT) 93 U/L (12-78) H Alkaline Phosphatase 164 U/L (46-116) H Total Protein 6.7 G/DL (6.4-8.2) Albumin 2.8 G/DL (3.4-5.0) L Globulin 3.9 g/dL Albumin/Globulin Ratio 0.7 (1.0-2.7) L Plan Problems: (1) Abdominal hernia Assessment & Plan: This a 44-year-old female with enlarging incisional ventral hernia. Initially repaired approximately 2 years ago when acute episode of incarcerated incisional ventral hernia. Since his redeveloped a hernia but has been stable. Has been enlarging over time. Unsure if symptoms related to hernia or other etiology. Plan for admission. N.p.o. IV fluids Upper GI with small bowel series contrast study to evaluate for possible obstruction from hernia per slow transit versus possible complication improved had BM after contrast study no n/v/f/c labs noted lft's improving likely biliary colic was etiology of pain but she felt related to hernia hernia notably larger on CT. Contrast study noted. No issues. Discharge Outpatient follow-up Thank you for allowing me to participate in patient's care will follow the recommendations (2) Abdominal pain Assessment & Plan: As above (3) Open abdominal wall wound Assessment & Plan: Slowly healing currently 2 cm with mild oozing. Cover with OPTi foam okay to apply Thera honey (4) Abnormal LFTs Assessment & Plan: Large stone noted in the neck of the gallbladder. Abnormal LFTs. Will obtain ultrasound. Trend labs Ultrasound noted and stable. LFTs stable trending down. Exam benign. Fernando Quinonez Jun 03, 2019 16:44
--- NOTE | 2019-06-04 00:15 | Progress Note ---
DATE: 06/03/2019 CARDIOLOGY PROGRESS NOTE SUBJECTIVE: The patient is tolerating diet. Passing gas. Minimal abdominal pain. OBJECTIVE: VITAL SIGNS: Blood pressure 118/77, heart rate 90, and respirations 18. Heart rate ranging from 74 to 90. LUNGS: Clear. CARDIAC: Regular. Normal S1, S2. A 1/6 systolic apical murmur. Defibrillator site clean and dry. ABDOMEN: Softer. No guarding and no signs of acute infection. EXTREMITIES: There is no edema. IMPRESSION: 1. Enlarging incisional ventral hernia. 2. No signs of acute infection, now stabilized with controlled pain. 3. No signs of acute hepatobiliary process. 4. Idiopathic cardiomyopathy. 5. Compensated systolic congestive heart failure. 6. Status post cardiac defibrillator. 7. Resolved tachycardia with initiation of beta-ev therapy. PLAN: 1. Stable for outpatient followup from cardiovascular standpoint. 2. The patient is instructed to continue current anti-failure regimen that includes beta-ev and angiotensin-converting enzyme inhibitor. 3. She will follow up with her primary soda fountain manager for further dose adjustments and defibrillator interrogation. Jose Alfredo Mcfadden M.D. DR: BRODY JOB#: [id number] CC:
--- NOTE | 2019-06-04 02:00 | Discharge Summary ---
DATE OF ADMISSION: 05/31/2019 DATE OF DISCHARGE: 06/03/2019 ADMISSION DIAGNOSES: 1. Abdominal pain. 2. Ventral hernia. 3. History of cardiomyopathy and defibrillator. DISCHARGE DIAGNOSES: 1. Abdominal pain. 2. Ventral hernia. 3. History of cardiomyopathy and defibrillator. HOSPITAL COURSE: The patient is a pleasant female. She has a prior history of hernia repair. She had a small amount of wound dehiscence that has been treated as an outpatient by her surgeon. The wound is much improved. She presented to the emergency room with worsening complaints of abdominal pain. He was concerned about her worsening hernia. She was given IV pain medications as needed as well as a bowel regimen. She tolerated p.o.'s well. Laboratories were normal except for some elevated liver function tests. She did have an ultrasound. The CAT scan did show gall stones and hernias, but no incarceration. An ultrasound showed some gallbladder stones, but no biliary dilatation. On discharge, her liver function tests have improved. She was cleared by the surgeon for discharge home. She will follow up with the surgeon in a week. DISCHARGE MEDICATIONS: Please see discharge medication list for discharge medications. DIET: Cardiac diet. ACTIVITIES: Ad-madelyn. Butch Morrissey M.D. DR: QUINTON JOB#: [id number] CC:
--- NOTE | 2019-06-07 10:51 | Cardiology Report ---
APPROVED REPORT EXAM: Two-dimensional and M-mode echocardiogram with Doppler and color Doppler. INDICATION Cardiomyopathy M-Mode DIMENSIONS IVSd1.0 (0.7-1.1cm)Left Atrium (MM)4.5 (1.6-4.0cm) LVDd6.6 (3.5-5.6cm)Aortic Root2.7 (2.0-3.7cm) PWd1.1 (0.7-1.1cm)Aortic Cusp Exc.2.0 (1.5-2.0cm) LVDs5.0 (2.5-4.0cm) PWs1.5 cm Moderate left ventricular enlargement. Global left ventricular hypokinesis. Left ventricular ejection fraction estimated to be 35-40 %. Mild left ventricular hypertrophy. Anterior Echo-free space, may be due to pericardial fat or effusion. Mild left atrial enlargement. Right atrial size at upper limits of normal. Right ventricular chamber size is within normal limits. Mild focal aortic valve sclerosis with adequate cusp excursion. Mildly thickened mitral valve leaflets with normal excursion. Mild mitral annulus and aortic root calcification. Pulmonic valve not well visualized. Normal tricuspid valve structure. IVC dilated at 2.4 cm with slight physiologic collapse suggestive of increased RA pressure. Pacemaker wire present in the right side chambers. A color flow and spectral Doppler study was performed and revealed: Mild mitral regurgitation. Mitral inflow indicates normal left ventricular diastolic function. Mild tricuspid regurgitation. Tricuspid systolic velocities suggests peak right ventricular systolic pressure of 39 mmHg consistent with mild pulmonary hypertension. Pulmonic regurgitation present.
== END 2019-06-03 11:00 | disposition home or self-care (01) | DRG 394 ==
LOC: EMR 14:48 → 4E 17:50 → EDBEDREQ 19:09
DX: K43.9 Ventral hernia without obstruction or gangrene (principal); I50.22 Chronic systolic (congestive) heart failure; I42.9 Cardiomyopathy, unspecified; I42.8 Other cardiomyopathies; I11.0 Hypertensive heart disease with heart failure; G35 Multiple sclerosis; Z95.810 Presence of automatic (implantable) cardiac defibrillator; R10.9 Unspecified abdominal pain; J45.909 Unspecified asthma, uncomplicated; S31.109A Unspecified open wound of abdominal wall, unspecified quadrant without penetration into peritoneal cavity, initial encounter; X58.XXXA Exposure to other specified factors, initial encounter; E87.6 Hypokalemia; E86.0 Dehydration; K80.20 Calculus of gallbladder without cholecystitis without obstruction
CPT/HCPCS: 36415; 71045; 74177; 74250; 76700; 80053; 80061; 81001; 81025; 83036; 83735; 83880; 84443; 85025; 85610; 85730; 86850; 86900; 86901; 90689; 93005; 93306; 99285; J7030; J8499

== ENCOUNTER 2019-09-10 13:34 | Emergency (ER) | payer MEDICARE, OTHER ==
[~2019-09-10] VITALS: Ht 160 cm; Wt 120.2 kg
[~2019-09-10 13:34] MED LIST changes: +WELLBUTRIN XL150 MG ORAL; +ZOLOFT50 MG ORAL
[2019-09-10 13:48] VITALS: BP 141/82
--- NOTE | 2019-09-10 13:55 | NUR ---
ED Nurse Note: patient walked into ED from home c/o left sided abdominal pain. patient reports history of hernia. patient reports coughing and worsening abdominal pain for 1 week. patient reports indigestion and is asking for tums. patient denies any nausea, vomiting, or diarrhea. patient on a hospital gown, ambulatory steady gait, breathing unlabored and even, speaking in full sentences.
--- NOTE | 2019-09-10 14:27 | NUR ---
HAND-OFF: Report given to Rosanna ARCOS.
--- NOTE | 2019-09-10 14:51 | Consultation ---
History of Present Illness General Date patient seen: Sep 10, 2019 Reason for Hospitalization: Abdominal Pain Present Illness HPI This is a very pleasant 44-year-old female well-known to me from prior surgery and care who I see in the office intermittently the had a complicated course initially beginning approximately 2 years ago when she had a small bowel obstruction secondary to incarcerated ventral hernia requiring exploration resection and repair. 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 She has been doing well and last follow-up was a few months back in 2019 in the office where she was significantly improved. She presented today to the emergency room at [facility] complaining of cough with associated significant abdominal pain and larger hernia. No nausea vomiting fever chills. Surgery called to evaluate and assist with care. Patient seen in the emergency department, patient evaluated, chart reviewed states that abdominal pain is 7 out of 10 and only when she coughs. Pain cramping and mainly around the area of the prior hernia. Allergies: Coded Allergies: No Known Allergies (Unverified , 01/19/19) Medication History Scheduled Benazepril Hcl* (Benazepril Hcl*), 20 MG ORAL DAILY, (Reported) Bupropion Hcl* (Wellbutrin Xl*), 150 MG ORAL DAILY, (Reported) Carvedilol* (Carvedilol*), 6.25 MG ORAL EVERY 12 HOURS, (Reported) Furosemide* (Lasix*), 40 MG ORAL DAILY, (Reported) Pantoprazole* (Pantoprazole*), 40 MG ORAL DAILY, (Reported) Potassium Chloride (K-Tab ER), 20 MEQ PO DAILY, (Reported) Potassium Chloride (K-Tab ER), 20 MEQ PO DAILY, (Reported) Sertraline Hcl* (Zoloft*), 50 MG ORAL DAILY, (Reported) Spironolactone (Aldactone), 25 MG ORAL DAILY, (Reported) Scheduled PRN Albuterol Sulfate* (Albuterol Sulfate Hhn*), 3 ML INH Q4H PRN for Shortness of Breath, (Reported) Zolpidem Tartrate* (Zolpidem Tartrate*), 5 MG ORAL BEDTIME PRN for Per rx protocol, (Reported) Patient History History Provided By: Patient, Medical Record, PMD Healthcare decision maker Resuscitation status Advanced Directive on File Past Medical/Surgical History Past Medical/Surgical History: (1) Dehydration (2) SOB (shortness of breath) (3) CHF (congestive heart failure) (4) SBO (small bowel obstruction) (5) Multiple sclerosis (6) Abdominal pain (7) Asthma (8) Nausea & vomiting (9) ABRAHAN (acute kidney injury) (10) Upper respiratory infection, acute (11) Open abdominal wall wound (12) Abnormal LFTs (13) Abdominal hernia Review of Systems Review of Symptoms General ROS: no weight loss or fever Psychological ROS: no depression or mood changes, no memory loss Ophthalmic ROS: no visual changes or eye irritation ENT ROS: no nasal congestion, hearing loss, dizziness Allergy and Immunology ROS: no allergic symptoms or urticaria Hematological and Lymphatic ROS: no swollen glands, unusual bleeding or bruising Endocrine ROS: no polyuria, polydipsia, weight changes, temperature intolerance Respiratory ROS: no cough, shortness of breath, or wheezing Cardiovascular ROS: chest pain or dyspnea on exertion Gastrointestinal ROS: abdominal pain, bright red blood in stool. Musculoskeletal ROS: no myalgias or arthralgias Neurological ROS: no TIA or stroke symptoms Dermatological ROS: no new or changing skin lesions, rashes or pruritis Physical Exam Physical Exam General appearance: alert, cooperative, no distress, appears stated age Head: Normocephalic, without obvious abnormality, atraumatic Eyes: conjunctivae/corneas clear. PERRL, EOM's intact. Fundi benign Throat: Lips, mucosa, and tongue normal. Teeth and gums normal Neck: supple, symmetrical, trachea midline, no adenopathy, thyroid: not enlarged, symmetric, no tenderness/mass/nodules, no carotid bruit and no JVD Lungs: clear to auscultation bilaterally Heart: regular rate and rhythm, S1, S2 normal, no murmur, click, rub or gallop Abdomen: soft,discomfort/tender around reducible ventral incisional hernia. wound c/d/i. Bowel sounds normal. No masses, no organomegaly Extremities: extremities normal, atraumatic, no cyanosis or edema Pulses: 2+ and symmetric Skin: Skin color, texture, turgor normal. No rashes or lesions Neurologic: Grossly normal Last 24 Hour Vital Signs Date Time Temp Pulse Resp B/P (MAP) Pulse Ox O2 Delivery O2 Flow Rate FiO2 09/10/19 14:06 92 16 Room Air 09/10/19 13:48 98.4 92 16 141/82 94 Room Air 09/10/19 13:48 98.4 92 16 141/82 (101) 94 Room Air Height (Feet): 5 Height (Inches): 3.00 Weight (Pounds): 265 Assessment/Plan Problem List: (1) Abdominal hernia Assessment & Plan: Incisional ventral hernia recurrent. Has been stable [place] previously imaged currently reducible soft causes discomfort with coughing but coughing likely secondary to fluid overload from CHF. CHF work-up undergoing emergency department. Has been on Lasix prior and states she feels better when she has not has not had any recently. Recommend giving some Lasix. Chest x-ray pending. Labs pending. Abdomen is soft stable unchanged significantly. If anything the prior wound is now well-healed no longer draining. Is not a surgical abdomen the hernia simply reducible. Pain discomfort probably from the constant coughing and the fact that she has a hernia that causes discomfort. No acute surgical invention indicated recommended. From surgical standpoint can be discharged home with outpatient follow-up in my office and patient is well understanding of how to contact my office and schedule outpatient follow-up as needed. If admitted will follow with recommendations. Okay for diet. Thank you for let me participate patient 's care will follow up on labs and imaging ICD Codes: K46.9 - Unspecified abdominal hernia without obstruction or gangrene SNOMED: [id number] (2) Abdominal pain ICD Codes: R10.9 - Unspecified abdominal pain SNOMED: [id number] Fernando Quinonez Sep 10, 2019 14:51
[2019-09-10 14:52] LABS: BASOPHILS % (AUTO) 0.8 % (0.0-2.0); EOSINOPHILS % (AUTO) 3.9 % (0.0-3.0); HEMATOCRIT 33.7 % (37.0-47.0); HEMOGLOBIN 11.4 G/DL (12.0-16.0); LYMPHOCYTES % (AUTO) 21.6 % (20.0-45.0); MEAN CORPUSCULAR VOLUME 84 FL (80-99); MONOCYTES % (AUTO) 9.3 % (1.0-10.0); NEUTROPHILS % (AUTO) 64.3 % (45.0-75.0); PLATELET COUNT 182 K/UL (150-450); RED CELL DISTRIBUTION WIDTH 14.6 % (11.6-14.8); WHITE BLOOD COUNT 7.8 K/UL (4.8-10.8)
[2019-09-10 15:00] LABS: ANION GAP 6 mmol/L (5-15); BLOOD UREA NITROGEN 18 mg/dL (7-18); CALCIUM 8.6 MG/DL (8.5-10.1); CARBON DIOXIDE 31 MMOL/L (21-32); CHLORIDE 106 MMOL/L (98-107); CREATININE 0.8 MG/DL (0.55-1.30); POTASSIUM 3.1 MMOL/L (3.5-5.1); SODIUM 143 MMOL/L (136-145)
[2019-09-10 15:11] LABS: ALANINE AMINOTRANSFERASE 217 U/L (12-78); ALBUMIN 2.9 G/DL (3.4-5.0); ALBUMIN/GLOBULIN RATIO 0.6 (1.0-2.7); ALKALINE PHOSPHATASE 161 U/L (46-116); ASPARTATE AMINO TRANSFERASE 134 U/L (15-37); BILIRUBIN,TOTAL 0.3 MG/DL (0.2-1.0)
--- NOTE | 2019-09-10 15:39 | NUR ---
ED Nurse Note: Abdominal x ray done at bedside.
[2019-09-10 15:40] VITALS: BP 138/78
--- NOTE | 2019-09-10 16:07 | Diagnostic Imaging Report ---
Indication: Chest pain Comparison: 05/31/2019 A single view chest radiograph was obtained. Findings: Lung volumes are low. No obvious infiltrate or evidence of pulmonary edema demonstrated. Left-sided pacemaker again noted. Heart size is accentuated. Bones are unremarkable. IMPRESSION: No acute disease. Pacemaker
--- NOTE | 2019-09-10 16:10 | Diagnostic Imaging Report ---
Indication: Abdominal pain Comparison: None Single view of the abdomen obtained Findings: There is relative absence of bowel gas which show significantly limits evaluation. Small amount of stool and gas noted in the colon which is unremarkable otherwise. Bones are osteopenic. IMPRESSION: No acute findings. Study is limited due to relative absence of small bowel gas
[2019-09-10 17:10] VITALS: BP 140/72
--- NOTE | 2019-09-10 17:10 | NUR ---
ER DISCHARGE NOTE: Patient is cleared to be discharged per ERMD, pt is aox4, on room air, with stable vital signs. pt was given dc and prescription instructions, pt was able to verbalize understanding, pt id band removed without complications. pt is able to ambulate with steady gait. pt took all belongings.
--- NOTE | 2019-09-10 17:14 | Emergency Room Report ---
History of Present Illness General Chief Complaint: Abdominal Pain Source: Patient, Medical Record, PMD Present Illness HPI Patient presents with complaints of increased cough which has led to some increased discomfort to her mid abdominal hernia Patient reports that when she gets this problem and has increased cough she requires IV Lasix which Improves her symptoms which in turn helps the abdominal discomfort Denies any vomiting or diarrhea denies any chest pain patient has noticed some mild swelling Increased in her lower legs denies any change in medications denies any fevers or chills Allergies: Coded Allergies: No Known Allergies (Unverified , 01/19/19) Patient History Past Medical History: see triage record Last Menstrual Period: hysterectomy Reviewed Nursing Documentation: PMH: Agreed; PSxH: Agreed Nursing Documentation-PMH Past Medical History: No History, Except For Hx Cardiac Problems: Yes - CHF Hx Hypertension: Yes Hx Pacemaker: Yes - Defibiliator Hx Asthma: Yes Hx COPD: Yes Hx Diabetes: No Hx Cancer: No Hx Gastrointestinal Problems: Yes - Abdominal hernia repair surgery [facility]. 2017 Hx Dialysis: No History Of Psychiatric Problem: Yes - Anxiety Hx Neurological Problems: Yes - MS Hx Cerebrovascular Accident: No Hx Seizures: No Review of Systems All Other Systems: negative except mentioned in HPI Physical Exam Vital Signs Date Time Temp Pulse Resp B/P (MAP) Pulse Ox O2 Delivery O2 Flow Rate FiO2 09/10/19 13:48 98.4 92 16 141/82 (101) 94 Room Air Sp02 EP Interpretation: reviewed, normal General Appearance: well appearing, no apparent distress Head: normocephalic, atraumatic Eyes: bilateral eye PERRL, bilateral eye EOMI ENT: hearing grossly normal, EOM grossly intact, normal pharynx Neck: supple Respiratory: lungs clear, no respiratory distress, no retraction Cardiovascular #1: regular rate, rhythm Gastrointestinal: non tender, other - Evidence of previous mid abdominal surgical scar, dehiscence and previous healing, otherwise soft appropriate bowel sounds Musculoskeletal: swelling - 1 out of 4 edema in both lower legs Neurologic: alert, oriented x3 Psychiatric: normal inspection Skin: other - as Above Lymphatic: no adenopathy Medical Decision Making Diagnostic Impression: Primary Impression: abdominal hernia ER Course Given the history and presentation work-up was initiated to evaluate for possible CHF also KUB is obtained to rule out any obvious obstruction or Strangulation of her hernia Blood work is appropriate x-ray does not show any obvious effusions KUB also does not show any obvious obstruction Patient continues to do well reports that she is having appropriate bowel movements also feels that her cough has significantly improved And will have close outpatient follow-up her potassium was addressed in the ER Please note that the patient's general operations staff specialist security also saw the patient in the ER and agrees with disposition Labs Test 09/10/19 14:30 White Blood Count 7.8 K/UL (4.8-10.8) Red Blood Count 4.00 M/UL (4.20-5.40) Hemoglobin 11.4 G/DL (12.0-16.0) Hematocrit 33.7 % (37.0-47.0) Mean Corpuscular Volume 84 FL (80-99) Mean Corpuscular Hemoglobin 28.6 PG (27.0-31.0) Mean Corpuscular Hemoglobin Concent 34.0 G/DL (32.0-36.0) Red Cell Distribution Width 14.6 % (11.6-14.8) Platelet Count 182 K/UL (150-450) Mean Platelet Volume 8.1 FL (6.5-10.1) Neutrophils (%) (Auto) 64.3 % (45.0-75.0) Lymphocytes (%) (Auto) 21.6 % (20.0-45.0) Monocytes (%) (Auto) 9.3 % (1.0-10.0) Eosinophils (%) (Auto) 3.9 % (0.0-3.0) Basophils (%) (Auto) 0.8 % (0.0-2.0) Sodium Level 143 MMOL/L (136-145) Potassium Level 3.1 MMOL/L (3.5-5.1) Chloride Level 106 MMOL/L (98-107) Carbon Dioxide Level 31 MMOL/L (21-32) Anion Gap 6 mmol/L (5-15) Blood Urea Nitrogen 18 mg/dL (7-18) Creatinine 0.8 MG/DL (0.55-1.30) Estimat Glomerular Filtration Rate > 60 mL/min (>60) Glucose Level 93 MG/DL (74-106) Calcium Level 8.6 MG/DL (8.5-10.1) Total Bilirubin 0.3 MG/DL (0.2-1.0) Aspartate Amino Transf (AST/SGOT) 134 U/L (15-37) Alanine Aminotransferase (ALT/SGPT) 217 U/L (12-78) Alkaline Phosphatase 161 U/L (46-116) Troponin I 0.047 ng/mL (0.000-0.056) Pro-B-Type Natriuretic Peptide 54 pg/mL (0-125) Total Protein 7.4 G/DL (6.4-8.2) Albumin 2.9 G/DL (3.4-5.0) Globulin 4.5 g/dL Albumin/Globulin Ratio 0.6 (1.0-2.7) Lipase 111 U/L (73-393) Rhythm Strip Diag. Results EP Interpretation: yes Rate: 77 Rhythm: no PVC's, no ectopy, other - paced Chest X-Ray Diagnostic Results Chest X-Ray Diagnostic Results : Chest X-Ray Ordered: Yes # of Views/Limited/Complete: 1 View Indication: Chest Pain EP Interpretation: Yes Interpretation: no consolidation, no effusion, no pneumothorax Impression: No acute disease Electronically Signed by: Jf Sprague DO Other X-Ray Diagnostic Results Other X-Ray Diagnostic Results : X-Ray ordered: kub # of Views/Limited Vs Complete: 1 View Indication: Pain EP Interpretation: Yes Interpretation: nonspecific bowel gas, no sbo, other - No obvious volvulus Impression: No acute disease Electronically Signed by: Jf Sprague DO Last Vital Signs Date Time Temp Pulse Resp B/P (MAP) Pulse Ox O2 Delivery O2 Flow Rate FiO2 09/10/19 15:40 98.2 88 16 138/78 97 Room Air Status: improved Disposition: HOME, SELF-CARE Condition: Improved Referrals: NON PHYSICIAN (PCP) PMD Patient Instructions: Open Hernia Repair, Care After, [id number], Ventral Hernia Additional Instructions: Patient is provided with the discharge instructions notified to follow up with primary doctor in the next 2-3 days otherwise return to the er with any worsening symptoms. Please note that this report is being documented using [employer]att[employer] technology. This can lead to erroneous entry secondary to incorrect interpretation by the dictating instrument. Jf Spargue DO Sep 10, 2019 17:14
== END 2019-09-10 17:10 | disposition home or self-care (01) ==
LOC: EMR 14:27
DX: K46.9 Unspecified abdominal hernia without obstruction or gangrene (principal); I11.0 Hypertensive heart disease with heart failure; J44.9 Chronic obstructive pulmonary disease, unspecified; Z95.0 Presence of cardiac pacemaker; Z90.710 Acquired absence of both cervix and uterus
CPT/HCPCS: 36415; 71045; 74018; 80053; 83690; 83880; 84484; 85025; 93005; 96374; 99284; J1940; J8499